=== PATIENT | male | born 1940 | race Caucasian/White ===

== ENCOUNTER 2020-07-05 11:34 | Emergency (ER) | payer BC, OTHER ==
--- NOTE | 2020-07-05 11:38 | ERPHSYRPT ---
- History of Present Illness Time Seen by Provider: 07/05/20 11:38 Source: patient Exam Limitations: no limitations Physician History: This is an 80-year-old white male who receives his primary medical care in the [facility] system. Patient has had a cough for 3 weeks. Patient has chronic recurrent bronchitis. He has recently been treated with a Z-Aly. He no longer has any antibiotics and he is not on any steroids at this time. Patient quit smoking cigarettes several years ago. He denies fever. He denies myalgias and arthralgias. He has no chest pain. He has no abdominal pain. He said no nausea vomiting or diarrhea. He has had no hemoptysis. He has seen a pul sample box maker out of [facility] in [place]. He wanted to be sure that he did or did not have a pneumonia. Timing/Duration: week(s) (3) Cough Quality/Degree: mild, dry cough Possible Cause: no prior episodes Modifying Factors: Improves With: coughing Associated Symptoms: cough, No fever, No muscle aches, No shortness of breath, No sore throat Allergies/Adverse Reactions: No Known Drug Allergies Allergy (Unverified 07/05/20 11:41) Travel Risk - International Travel Have you traveled outside of the country in past 3 weeks: No - Coronavirus Screening Are you exhibiting any of the following symptoms?: No Close contact with a COVID-19 positive Pt in past 14-21 Days: No - Review of Systems Constitutional: No Symptoms Eyes: No Symptoms Ears, Nose, & Throat: No Symptoms Respiratory: Cough, No Dyspnea Cardiac: No Symptoms Abdominal/Gastrointestinal: No Symptoms Genitourinary Symptoms: No Symptoms Musculoskeletal: No Symptoms Skin: No Symptoms Neurological: No Symptoms Psychological: No Symptoms Endocrine: No Symptoms Hematologic/Lymphatic: No Symptoms Immunological/Allergic: No Symptoms All Other Systems: Reviewed and Negative - Past Medical History Pertinent Past Medical History: Yes Respiratory History: Bronchitis - Past Surgical History Past Surgical History: Yes - Nursing Vital Signs Nursing Vital Signs: Initial Vital Signs Temperature 98.7 F 07/05/20 11:41 Pulse Rate 90 07/05/20 11:41 Respiratory Rate 18 07/05/20 11:41 Blood Pressure 135/86 07/05/20 11:41 O2 Sat by Pulse Oximetry 96 07/05/20 11:41 Pain Scale Pain Intensity 0 - Physical Exam General Appearance: no apparent distress, alert, anxiety Eye Exam: PERRL/EOMI, eyes nml inspection Ears, Nose, Throat Exam: normal ENT inspection, moist mucous membranes Neck Exam: normal inspection, non-tender, supple, full range of motion Respiratory Exam: normal breath sounds, lungs clear, airway intact, No chest tenderness, No respiratory distress Cardiovascular Exam: regular rate/rhythm, normal heart sounds, normal peripheral pulses Gastrointestinal/Abdomen Exam: soft, normal bowel sounds, No tenderness Rectal Exam: not done Back Exam: normal inspection, normal range of motion, No CVA tenderness, No vertebral tenderness Extremity Exam: normal inspection, normal range of motion, pelvis stable Neurologic Exam: alert, oriented x 3, cooperative, route sales specialist II-XII nml as tested, normal mood/affect, nml cerebellar function, nml station & gait, sensation nml Skin Exam: normal color, warm, dry Lymphatic Exam: No adenopathy SpO2 Interpretation: normal O2 Delivery: Room Air - Course Nursing assessment & vital signs reviewed: Yes Ordered Tests: Active Orders 24 hr Category Date Time Status CHEST 2 VIEWS (PA AND LAT) Stat Exams 07/05/20 11:47 Completed - Progress Progress: re-examined, unchanged Air Movement: good Progress Note: 07/05/20 12:11 Chest x-ray shows no acute cardiopulmonary process. Blood Culture(s) Obtained: No Antibiotics given: No Counseled pt/family regarding: drug and/or alcohol abuse, diagnosis, need for follow-up - Departure Departure Disposition: Home Clinical Impression: Chronic bronchitis Condition: Stable Critical Care Time: No Additional Instructions: Drink plenty of fluids. Take your medication as prescribed. Call your appliance repairer today to make arrangements for follow-up appointment. Return to the emergency department if symptoms worsen. Use your inhalers and nebulizers as discussed/prescribed Prescriptions: Cefdinir 300 mg PO BID 7 Days #14 capsule Prednisone 10 mg [Deltasone 10 mg] 10 mg PO TID #12 tablet
--- NOTE | 2020-07-05 12:06 | XRAY ---
Indication: Cough 3 weeks. Comparison: None PA/lateral chest hyperinflated with small left costophrenic angle effusion/atelectasis. Remaining heart and right lung unremarkable. Bony thorax intact with mild levoscoliosis.
[2020-07-05] MEDS ORDERED: solu-MEDROL 125 MG IM ONE (12:19)
[2020-07-05] MEDS ORDERED: Rocephin 1000 MG INJ IM ONE (12:19)
[2020-07-05] MEDS ORDERED: Rocephin 1000 MG INJ ONE (12:37)
[2020-07-05] MEDS ORDERED: solu-MEDROL 125 MG ONE (12:37)
[2020-07-05] MEDS ORDERED: XYLOCAINE 1% HCL 20 ML MDV ONE (12:37)
[2020-07-05 13:05] VITALS: BP 153/99; PULSE 78; O2SAT 97
== END 2020-07-05 13:09 | disposition home or self-care (01) ==
LOC: ED 11:34
DX: J42 Unspecified chronic bronchitis (principal); R05 Cough
CPT/HCPCS: 71046; 96372; 99284; J0696; J2930

== ENCOUNTER 2021-05-06 22:50 | Emergency (ER) | payer OTHER ==
--- NOTE | 2021-05-06 22:53 | ERPHSYRPT ---
- History of Present Illness Time Seen by Provider: 05/06/21 22:53 Source: patient Exam Limitations: no limitations Physician History: This is an 81-year-old white male [facility] patient who only has a history of recurrent bronchitis and lives alone. He stated that he does not have chest pain. He is not having any abdominal pain. He is not short of breath. However he did fall and "woke up" on the ground and had some skin tears to his left forearm. Patient is here to get a CAT scan of the head and to have his skin tears managed. He does not want any other work-up done. Occurred: just prior to arrival Reason for Fall: unknown Injuries/Pain Location: upper extremity (Skin tears left forearm) Loss of Consciousness: brief (seconds) Severity of Pain-Max: mild Severity of Pain-Current: mild Modifying Factors: Improves With: nothing Associated Symptoms (Fall): extremity injury (Skin tears left forearm) Allergies/Adverse Reactions: No Known Drug Allergies Allergy (Verified 05/06/21 23:09) Hx Influenza Vaccination/Date Given: Yes Hx Pneumococcal Vaccination/Date Given: No Travel Risk - International Travel Have you traveled outside of the country in past 3 weeks: No - Coronavirus Screening Are you exhibiting any of the following symptoms?: No Close contact with a COVID-19 positive Pt in past 14-21 Days: No - Review of Systems Constitutional: No Symptoms Eyes: No Symptoms Ears, Nose, & Throat: No Symptoms Respiratory: No Symptoms Cardiac: No Symptoms Abdominal/Gastrointestinal: No Symptoms Genitourinary Symptoms: No Symptoms Musculoskeletal: No Symptoms Skin: Other Psychological: No Symptoms Endocrine: No Symptoms Hematologic/Lymphatic: No Symptoms Immunological/Allergic: No Symptoms All Other Systems: Reviewed and Negative - Past Medical History Pertinent Past Medical History: Yes Neurological History: No Pertinent History ENT History: No Pertinent History Cardiac History: No Pertinent History Respiratory History: Bronchitis Endocrine Medical History: No Pertinent History Musculoskeletal History: No Pertinent History GI Medical History: No Pertinent History History: No Pertinent History Psycho-Social History: Depression Male Reproductive Disorders: No Pertinent History - Past Surgical History Past Surgical History: Yes Neuro Surgical History: No Pertinent History Cardiac: No Pertinent History Respiratory: No Pertinent History Gastrointestinal: No Pertinent History Genitourinary: No Pertinent History Musculoskeletal: No Pertinent History Male Surgical History: No Pertinent History - Social History Smoking Status: Never smoker Exposure to second hand smoke: No Drug Use: none Patient Lives Alone: Yes - Nursing Vital Signs Nursing Vital Signs: Initial Vital Signs Temperature 98.2 F 05/06/21 23:09 Pulse Rate 69 05/06/21 23:09 Respiratory Rate 18 05/06/21 23:09 Blood Pressure 153/83 05/06/21 23:09 O2 Sat by Pulse Oximetry 100 05/06/21 23:09 Pain Scale Pain Intensity 5 - [place] Coma Score Best Eye Response ([place]): (4) open spontaneously Best Verbal Response ([place]): (5) oriented Best Motor Response ([place]): (6) obeys commands [place] Total: 15 - Physical Exam General Appearance: no apparent distress, alert, thin Head Injury: no evidence of injury Eye Exam: PERRL/EOMI, eyes nml inspection ENT Exam: airway nml, nml ext.inspection, No evidence of ENT injury Neck Exam: supple, trachea midline, full range of motion, normal alignment, normal inspection Respiratory/Chest Exam: normal breath sounds, No chest tenderness, No respiratory distress, No crepitus Cardiovascular Exam: normal heart sounds, regular rate/rhythm, murmur Gastrointestinal Exam: soft, normal bowel sounds, No tenderness Rectal Exam: not done Back Exam: normal inspection, normal range of motion, No CVA tenderness, No vertebral tenderness Extremity Exam: normal range of motion, capillary refill <3 sec, pelvis stable, other (Skin tears left forearm) Neurologic Exam: alert, oriented x 3, cooperative, director sanitation bureau II-XII nml as tested, normal mood/affect, nml cerebellar function, nml station & gait, sensation nml Skin Exam: other (Multiple skin tears left forearm. No evidence of infection.) SpO2 Interpretation: normal - Course Nursing assessment & vital signs reviewed: Yes - Progress Progress: improved Progress Note: 05/06/21 23:59 Patient has opted to leave AGAINST MEDICAL ADVICE. He was made aware of the risks of leaving including possible intracranial hemorrhage or fracture. He also could have a fracture of the left forearm. Patient understands the benefit of staying and completing the work-up. He has opted to leave AMA. He is to sign the AMA form. Counseled pt/family regarding: diagnosis, need for follow-up, rad results - Departure Departure Disposition: AMA Clinical Impression: Fall with injury, Head injury, Skin tear of left upper extremity Condition: Stable Critical Care Time: No Referrals: HOSPITAL,'S [Primary Care Provider] - Follow up/PCP as directed Additional Instructions: Keep the skin tear sites dry for 24 hours. After 24 hours may wash the sites each day with soap and water. Leave the Steri-Strips in place until they fall off.
== END 2021-05-06 23:55 | disposition left against medical advice (07) ==
LOC: ED 22:50
DX: S51.812A Laceration without foreign body of left forearm, initial encounter (principal); S06.9X1A Unspecified intracranial injury with loss of consciousness of 30 minutes or less, initial encounter; W19.XXXA Unspecified fall, initial encounter
CPT/HCPCS: 73090; 99283

== ENCOUNTER 2021-10-24 11:41 | Emergency (ER) | payer BC, OTHER ==
[2021-10-24] MEDS ORDERED: Sodium Chloride 0.9% 1000 ML 1,000 ML IV STA (11:54)
--- NOTE | 2021-10-24 11:54 | ERPHSYRPT ---
- History of Present Illness Time Seen by Provider: 10/24/21 11:54 Source: patient, EMS Exam Limitations: no limitations Physician History: This is an 81-year-old white male [facility] patient who was brought into the emergency department via EMS because of a witnessed syncopal episode at a local car lot. Patient was in the car a lot and was noticed to be wobbling and then he passed out but was caught by a staff member. Patient does not recall the events. He does recall being nauseated at some point. He was also very pale and diaphoretic when EMS arrived. An intravenous line was placed by EMS and intravenous fluids were started. By the time the patient arrived emergency department, he states he was feeling better. He denies chest pain. He denies shortness of breath. He does not have any pain complaints. I have seen this patient in the past and he has had falls and syncopal episodes in the past. His blood sugar was normal per EMS. Witnessed: bystander Prior Episodes: single episode today Timing/Duration: today Precipitating Factors: unknown Context: standing Loss of Consciousness: brief (seconds) Charcter of event(s): felt faint, almost passed out Allergies/Adverse Reactions: No Known Drug Allergies Allergy (Verified 10/24/21 11:44) Hx Tetanus, Diphtheria Vaccination/Date Given: No Hx Influenza Vaccination/Date Given: Yes Hx Pneumococcal Vaccination/Date Given: No Travel Risk - International Travel Have you traveled outside of the country in past 3 weeks: No - Coronavirus Screening Are you exhibiting any of the following symptoms?: No Close contact with a COVID-19 positive Pt in past 14-21 Days: No - Vaccine Status Have you recieved a Covid-19 vaccination: Yes 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: [employer] - Vaccination Dates Date of 2cond Vaccination (if applicable): 08/11 Comment: and received booster - Past Medical History Pertinent Past Medical History: Yes Neurological History: No Pertinent History ENT History: No Pertinent History Cardiac History: No Pertinent History Respiratory History: Bronchitis Endocrine Medical History: No Pertinent History Musculoskeletal History: No Pertinent History GI Medical History: No Pertinent History History: No Pertinent History Psycho-Social History: Depression Male Reproductive Disorders: No Pertinent History - Past Surgical History Past Surgical History: Yes Neuro Surgical History: No Pertinent History Cardiac: No Pertinent History Respiratory: No Pertinent History Gastrointestinal: No Pertinent History Genitourinary: No Pertinent History Musculoskeletal: No Pertinent History Male Surgical History: No Pertinent History - Social History Smoking Status: Never smoker Exposure to second hand smoke: No Drug Use: none Patient Lives Alone: Yes - Review of Systems Constitutional: Weakness Eyes: No Symptoms Ears, Nose, & Throat: No Symptoms Respiratory: No Symptoms Cardiac: Syncope, No Chest Pain Abdominal/Gastrointestinal: Nausea Genitourinary Symptoms: No Symptoms Musculoskeletal: No Symptoms Skin: No Symptoms Neurological: No Symptoms Psychological: No Symptoms Endocrine: No Symptoms Hematologic/Lymphatic: No Symptoms Immunological/Allergic: No Symptoms All Other Systems: Reviewed and Negative Physical Exam - Nursing Vital Signs Nursing Vital Signs: Initial Vital Signs Temperature 97.1 F 10/24/21 11:45 Pulse Rate 71 10/24/21 11:45 Respiratory Rate 21 10/24/21 11:45 Blood Pressure 139/85 10/24/21 11:45 O2 Sat by Pulse Oximetry 100 10/24/21 11:45 Pain Scale Pain Intensity 0 - [place] Coma Scale Best Eye Response ([place]): (4) open spontaneously Best Verbal Response ([place]): (5) oriented Best Motor Response ([place]): (6) obeys commands [place] Total: 15 - Physical Exam General Appearance: mild distress, alert, anxiety Eye Exam: bilateral eye: normal inspection, PERRL, EOMI Ears, Nose, Throat Exam: normal ENT inspection, moist mucous membranes Neck Exam: normal inspection, non-tender, supple, full range of motion Respiratory: normal breath sounds, lungs clear, airway intact, No chest tenderness, No respiratory distress Cardiovascular: regular rate/rhythm, normal heart sounds, normal peripheral pulses Gastrointestinal: soft, normal bowel sounds, No tenderness Rectal Exam: not done Back Exam: normal inspection, normal range of motion, No CVA tenderness Extremity Exam: normal inspection, normal range of motion, pelvis stable Mental Status: alert, oriented x 3, cooperative staff nurse Exam: normal hearing, normal speech, PERRL, tongue midline Coordination/Gait: normal finger to nose Skin Exam: diaphoresis, other SpO2 Interpretation: normal O2 Delivery: Room Air (We will) - Course Nursing assessment & vital signs reviewed: Yes EKG Interpreted by Me: RATE (73), A-fib, Other (No acute ischemic changes on today's EKG. no comparison EKG available.) Ordered Tests: Active Orders 24 hr Category Date Time Status Program Review Director STAT Care 10/24/21 11:55 Active EKG-ER Only STAT Care 10/24/21 11:54 Active IV Insertion STAT Care 10/24/21 11:54 Active HEAD WITHOUT CONTRAST [CT] Stat Exams 10/24/21 11:55 Completed CBC W DIFF Stat Lab 10/24/21 12:00 Completed CMP Stat Lab 10/24/21 12:00 Completed TROPONIN Q3H Lab 10/24/21 12:00 Completed TROPONIN Q3H Lab 10/24/21 15:00 Ordered TROPONIN Q3H Lab 10/24/21 18:00 Ordered TROPONIN Q3H Lab 10/24/21 21:00 Ordered TROPONIN Q3H Lab 10/25/21 00:00 Ordered UA W/RFX CULTURE Stat Lab 10/24/21 13:53 Completed Medication Summary Discontinued Medications Generic Name Dose Route Start Last Admin Trade Name Freq PRN Reason Stop Dose Admin Sodium Chloride 1,000 mls @ 999 mls/hr 10/24/21 11:54 10/24/21 13:55 Sodium Chloride 0.9% 1000 Ml IV 10/24/21 12:54 Infused .Q1H1M STA Infusion Sodium Chloride Confirm 10/24/21 12:38 Sodium Chloride 0.9% 1000 Ml Administered 10/24/21 12:39 Dose 1,000 mls @ ud .ROUTE .STK-MED ONE Lab/Rad Data: Laboratory Result Diagrams 10/24/21 12:00 10/24/21 12:00 Laboratory Results 10/24/21 10/24/21 10/24/21 Range/Units 13:53 12:00 12:00 WBC (4.0-10.5) K/mm3 RBC (4.1-5.6) M/mm3 Hgb (12.5-18.0) gm/dl Hct (42-50) % MCV (78-100) fl MCH (26-32) pg MCHC (32-36) g/dl RDW (11.5-14.0) % Plt Count (150-450) K/mm3 MPV (7.5-11.0) fl Gran % (36.0-66.0) % Eos # (Auto) (0-0.5) Absolute Lymphs (auto) (1.0-4.6) Absolute Monos (auto) (0.0-1.3) Lymphocytes % (24.0-44.0) % Monocytes % (0.0-12.0) % Eosinophils % (0.00-5.0) % Basophils % (0.0-0.4) % Absolute Granulocytes (1.4-6.9) Basophils # (0-0.4) Sodium 137 (137-145) mmol/L Potassium 4.2 (3.5-5.1) mmol/L Chloride 105 (98-107) mmol/L Carbon Dioxide 21 L (22-30) mmol/L Anion Gap 15.8 H (5-15) MEQ/L BUN 10 (9-20) mg/dL Creatinine 0.69 (0.66-1.25) mg/dL Estimated GFR > 60.0 ML/MIN Glucose 104 (74-106) mg/dL Calcium 8.5 (8.4-10.2) mg/dL Total Bilirubin 0.50 (0.2-1.3) mg/dL AST 21 (17-59) U/L ALT 15 (0-50) U/L Alkaline Phosphatase 47 (38-126) U/L Troponin I < 0.012 (0.000-0.034) ng/mL Serum Total Protein 6.1 L (6.3-8.2) g/dL Albumin 3.6 (3.5-5.0) g/dL Urinalys Dipstick Clnc MAIN LAB Urine Color YELLOW (YELLOW) Urine Appearance CLEAR (CLEAR) Urine pH 7.0 (5-6) Ur Specific Dunbar 1.025 (1.005-1.025) POC Urine Protein Conf TRACE (Negative) Urine Ketones SMALL-15 (NEGATIVE) Urine Nitrite NEGATIVE (NEGATIVE) Urine Bilirubin NEGATIVE (NEGATIVE) Urine Urobilinogen 1 (0-1) mg/dL Urine Leukocytes NEGATIVE (NEGATIVE) Urine WBC (Auto) NONE (0-5) /HPF Urine RBC (Auto) 0-2 (0-2) /HPF U Hyaline Cast (Auto) 6-10 (0-2) /LPF U Epithel Cells (Auto) NONE (FEW) /HPF Urine Bacteria (Auto) Not Reportable Urine RBC NEGATIVE (0-5) Bandar/ul Urine Mucus (Auto) SLIGHT (NEGATIVE) /HPF Ur Culture Indicated? NO Urine Glucose NEGATIVE (NEGATIVE) mg/dL 10/24/21 Range/Units 12:00 WBC 7.6 (4.0-10.5) K/mm3 RBC 3.98 L (4.1-5.6) M/mm3 Hgb 11.8 L (12.5-18.0) gm/dl Hct 36.5 L (42-50) % MCV 91.7 (78-100) fl MCH 29.6 (26-32) pg MCHC 32.3 (32-36) g/dl RDW 12.2 (11.5-14.0) % Plt Count 323 (150-450) K/mm3 MPV 8.4 (7.5-11.0) fl Gran % 49.9 (36.0-66.0) % Eos # (Auto) 0.23 (0-0.5) Absolute Lymphs (auto) 2.75 (1.0-4.6) Absolute Monos (auto) 0.79 (0.0-1.3) Lymphocytes % 36.3 (24.0-44.0) % Monocytes % 10.4 (0.0-12.0) % Eosinophils % 3.0 (0.00-5.0) % Basophils % 0.4 (0.0-0.4) % Absolute Granulocytes 3.78 (1.4-6.9) Basophils # 0.03 (0-0.4) Sodium (137-145) mmol/L Potassium (3.5-5.1) mmol/L Chloride (98-107) mmol/L Carbon Dioxide (22-30) mmol/L Anion Gap (5-15) MEQ/L BUN (9-20) mg/dL Creatinine (0.66-1.25) mg/dL Estimated GFR ML/MIN Glucose (74-106) mg/dL Calcium (8.4-10.2) mg/dL Total Bilirubin (0.2-1.3) mg/dL AST (17-59) U/L ALT (0-50) U/L Alkaline Phosphatase (38-126) U/L Troponin I (0.000-0.034) ng/mL Serum Total Protein (6.3-8.2) g/dL Albumin (3.5-5.0) g/dL Urinalys Dipstick Clnc Urine Color (YELLOW) Urine Appearance (CLEAR) Urine pH (5-6) Ur Specific Dunbar (1.005-1.025) POC Urine Protein Conf (Negative) Urine Ketones (NEGATIVE) Urine Nitrite (NEGATIVE) Urine Bilirubin (NEGATIVE) Urine Urobilinogen (0-1) mg/dL Urine Leukocytes (NEGATIVE) Urine WBC (Auto) (0-5) /HPF Urine RBC (Auto) (0-2) /HPF U Hyaline Cast (Auto) (0-2) /LPF U Epithel Cells (Auto) (FEW) /HPF Urine Bacteria (Auto) Urine RBC (0-5) Bandar/ul Urine Mucus (Auto) (NEGATIVE) /HPF Ur Culture Indicated? Urine Glucose (NEGATIVE) mg/dL - Progress Progress: improved, re-examined Progress Note: 10/24/21 15:15 CAT scan of the head shows a nonacute senile brain. Counseled pt/family regarding: lab results, diagnosis, need for follow-up, rad results - Departure Departure Disposition: Home Clinical Impression: Syncope, Dehydration Condition: Stable Critical Care Time: No Referrals: HOSPITAL,'S [Primary Care Provider] - Follow up/PCP as directed Additional Instructions: Drink plenty of fluids and advance your diet. Eat several small meals a day. Keep your appointment at the [facility] next 10/29/2021. Wear the Holter monitor and follow the directions.
[2021-10-24 12:13] LABS: Absolute Neutrophil Ct (ANC) 3.78 (1.4-6.9); Basophil (Absolute #) 0.03 (0-0.4); Eosinophil (Absolute #) 0.23 (0-0.5); Hematocrit 36.5 % (42-50); Hemoglobin 11.8 gm/dl (12.5-18.0); Lymphocyte (Absolute #) 2.75 (1.0-4.6); Lymphocytes % 36.3 % (24.0-44.0); Mean Cell Volume 91.7 fl (78-100); Mean Corpuscular Hemoglobin 29.6 pg (26-32); Mean Corpuscular Hgb Concent. 32.3 g/dl (32-36); Mean Platelet Volume 8.4 fl (7.5-11.0); Monocyte (Absolute #) 0.79 (0.0-1.3); Monocytes % 10.4 % (0.0-12.0); Neutrophil % 49.9 % (36.0-66.0); Platelet Count 323 K/mm3 (150-450); Red Blood Count 3.98 M/mm3 (4.1-5.6); Red Cell Distribution Width 12.2 % (11.5-14.0); White Blood Count 7.6 K/mm3 (4.0-10.5)
--- NOTE | 2021-10-24 12:24 | XRAY ---
Indication: Syncope. History of brain aneurysm. Multiple contiguous axial images obtained through the head without contrast. Comparison: None Age-appropriate global atrophy and moderate periventricular degenerative micro-ischemia bilaterally. No acute intracranial hemorrhage, abnormal extra-axial fluid collection, or mass effect. Fourth ventricle is midline without hydrocephalus. Bony calvarium intact. Visualized paranasal sinuses and mastoid air cells are clear. Impression: Nonacute senile brain.
[2021-10-24 12:33] LABS: ALBUMIN 3.6 g/dL (3.5-5.0); ALKALINE PHOSPHATASE 47 U/L (38-126); ANION GAP 15.8 MEQ/L (5-15); BLOOD UREA NITROGEN 10 mg/dL (9-20); CHLORIDE 105 mmol/L (98-107); Calcium 8.5 mg/dL (8.4-10.2); Carbon Dioxide 21 mmol/L (22-30); Creatinine 1 0.69 mg/dL (0.66-1.25); EST GLOMERULAR FILTRATION RATE > 60.0 ML/MIN; Glucose 104 mg/dL (74-106); Potassium 4.2 mmol/L (3.5-5.1); SGOT/AST 21 U/L (17-59); SGPT/ALT 15 U/L (0-50); SODIUM 137 mmol/L (137-145); Total Protein 6.1 g/dL (6.3-8.2)
[2021-10-24] MEDS ORDERED: Sodium Chloride 0.9% 1000 ML 1,000 ML ONE (12:38)
[2021-10-24 14:21] LABS: Appearance CLEAR (CLEAR); Bilirubin NEGATIVE (NEGATIVE); Glucose NEGATIVE (NEGATIVE); Ketones SMALL-15 (NEGATIVE); RBC NEGATIVE Ery/ul (0-5); Specific Gravity 1.025 (1.005-1.025)
[2021-10-24 14:22] LABS: Dipstick done @ ? MAIN LAB; Nitrite NEGATIVE (NEGATIVE); Protein,Urine Dip TRACE (Negative); Urobilinogen 1 mg/dL (0-1)
[2021-10-24 14:30] LABS: Mucus SLIGHT /HPF (NEGATIVE); RBC 0-2 /HPF (0-2)
[2021-10-24 14:31] LABS: Urine Cultured Indicated? NO
[2021-10-24 15:43] VITALS: BP 152/82; PULSE 95; O2SAT 100
== END 2021-10-24 16:08 | disposition home or self-care (01) ==
LOC: ED 11:41
DX: R55 Syncope and collapse (principal); E86.0 Dehydration; Z91.81 History of falling
CPT/HCPCS: 36415; 70450; 80053; 81015; 84484; 85025; 93005; 93041; 96360; 99284

== ENCOUNTER 2021-11-23 08:43 | Emergency (ER) | payer OTHER ==
--- NOTE | 2021-11-23 09:25 | ERPHSYRPT ---
- History of Present Illness Source: patient Exam Limitations: no limitations Patient Subjective Stated Complaint: Pt states "I was peeing every 20 minutes [facility] and I have taken 2 of them and now I cannot pee at all and I hurt." Triage Nursing Assessment: pt presented alert and oriented X 3, skin pwd. Pt ambulates with an upright steady gait, able to speak in clear full sentences pt in no apparent respiratory distress. Pt stated his last urination was at 0300 Physician History: 81 yo wm w urinary retention since 3:00AM. Pt has urinary incontinence and was started on a new med, Trospium CL, yesterday [facility]. Lock,#14, placed per nursing w 300ml drainage immediately. Timing/Duration: other (3:00AM) Activites at Onset: rest Quality: dullness Onset Location: other (Supra-pubic) Pain Radiation: none Severity of Pain-Max: moderate Severity of Pain-Current: moderate Modifying Factors: Improves With: nothing, urinating Associated Symptoms: abdominal pain Prior abdominal problems: none Sexual intercourse history: non-contributory Allergies/Adverse Reactions: No Known Drug Allergies Allergy (Verified 10/24/21 11:44) Home Medications: Levothyroxine Sodium 100 Mcg [Synthroid 100 Mcg] 100 mcg PO DAILY 11/23/21 [History] Trospium Chloride 20 mg PO BID 11/23/21 [History] Hx Tetanus, Diphtheria Vaccination/Date Given: No Hx Influenza Vaccination/Date Given: Yes Hx Pneumococcal Vaccination/Date Given: No Immunizations Up to Date: Yes Travel Risk - International Travel Have you traveled outside of the country in past 3 weeks: No - Coronavirus Screening Are you exhibiting any of the following symptoms?: No Close contact with a COVID-19 positive Pt in past 14-21 Days: No - Vaccine Status Have you recieved a Covid-19 vaccination: Yes 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: [employer] - Vaccination Dates Date of 2cond Vaccination (if applicable): 08/11 Comment: and received booster - Past Medical History Pertinent Past Medical History: Yes Neurological History: No Pertinent History ENT History: No Pertinent History Cardiac History: No Pertinent History Respiratory History: Bronchitis Endocrine Medical History: No Pertinent History Musculoskeletal History: No Pertinent History GI Medical History: No Pertinent History History: No Pertinent History Psycho-Social History: Depression Male Reproductive Disorders: No Pertinent History - Past Surgical History Past Surgical History: Yes Neuro Surgical History: No Pertinent History Cardiac: No Pertinent History Respiratory: No Pertinent History Gastrointestinal: No Pertinent History Genitourinary: No Pertinent History Musculoskeletal: No Pertinent History Male Surgical History: No Pertinent History - Social History Smoking Status: Never smoker Exposure to second hand smoke: No Drug Use: none Patient Lives Alone: Yes Significant Family History: no pertinent family hx - Review of Systems Constitutional: No Symptoms Eyes: No Symptoms Ears, Nose, & Throat: No Symptoms Respiratory: No Symptoms Cardiac: No Symptoms Abdominal/Gastrointestinal: No Symptoms, Abdominal Pain (Supra-pubic) Genitourinary Symptoms: No Symptoms, Urinary Retention Musculoskeletal: No Symptoms Skin: No Symptoms Neurological: No Symptoms Psychological: No Symptoms Endocrine: No Symptoms Hematologic/Lymphatic: No Symptoms Immunological/Allergic: Pollen Allergy - Nursing Vital Signs Nursing Vital Signs: Initial Vital Signs Temperature 98.0 F 11/23/21 08:44 Pulse Rate 109 H 11/23/21 08:44 Respiratory Rate 20 11/23/21 08:44 Blood Pressure 164/100 11/23/21 08:44 O2 Sat by Pulse Oximetry 98 11/23/21 08:44 Pain Scale Pain Intensity 0 Hypertensive/Tachycardic - Physical Exam General Appearance: no apparent distress Eye Exam: PERRL/EOMI, eyes nml inspection Ears, Nose, Throat Exam: normal ENT inspection, TMs normal, pharynx normal, moist mucous membranes Neck Exam: normal inspection, non-tender, supple, full range of motion, No meningismus, No mass, No Brudzinski, No Kernig's Respiratory Exam: normal breath sounds, lungs clear, airway intact Cardiovascular Exam: regular rate/rhythm, normal heart sounds, normal peripheral pulses, capillary refill <2 sec, No murmur Gastrointestinal/Abdomen Exam: soft, normal bowel sounds, tenderness (Mild supra-pubic after catheter placement) Back Exam: normal inspection, normal range of motion, No CVA tenderness, No vertebral tenderness Extremity Exam: normal inspection, normal range of motion Neurologic Exam: alert, oriented x 3, cooperative, drug inspector II-XII nml as tested, normal mood/affect, nml cerebellar function, nml station & gait, sensation nml, No motor deficits, No sensory deficit Skin Exam: normal color, warm, dry Lymphatic Exam: No adenopathy SpO2 Interpretation: normal SpO2: 98 O2 Delivery: Room Air - Course Nursing assessment & vital signs reviewed: Yes Ordered Tests: Active Orders 24 hr Category Date Time Status Lock [Catheter-[place] Lock] STAT Care 11/23/21 09:06 Active UA W/RFX CULTURE Stat Lab 11/23/21 09:31 Completed Lab/Rad Data: Laboratory Results 11/23/21 Range/Units 09:31 Urinalys Dipstick Clnc MAIN LAB Urine Color YELLOW (YELLOW) Urine Appearance CLEAR (CLEAR) Urine pH 6.0 (5-6) Ur Specific [place] 1.015 (1.005-1.025) POC Urine Protein Conf NEGATIVE (Negative) Urine Ketones NEGATIVE (NEGATIVE) Urine Nitrite NEGATIVE (NEGATIVE) Urine Bilirubin NEGATIVE (NEGATIVE) Urine Urobilinogen 0.2 (0-1) mg/dL Urine Leukocytes NEGATIVE (NEGATIVE) Urine WBC (Auto) NONE (0-5) /HPF Urine RBC (Auto) 0-2 (0-2) /HPF U Epithel Cells (Auto) NONE (FEW) /HPF Urine Bacteria (Auto) NONE SEEN (NEGATIVE) /HPF Urine RBC TRACE-LYSED (0-5) Bandar/ul Urine Mucus (Auto) SLIGHT (NEGATIVE) /HPF Ur Culture Indicated? NO Urine Glucose NEGATIVE (NEGATIVE) mg/dL - Progress Progress: improved Progress Note: 11/23/21 10:18 Pt greatly improved after Lock placement. BP/HR decreased. [facility] Counseled pt/family regarding: diagnosis, need for follow-up - Departure Departure Disposition: Home Clinical Impression: Urinary retention Condition: Stable Critical Care Time: No Referrals: [facility] [LOCATION] - Follow up/PCP as directed Instructions: Urinary Retention (DC) Additional Instructions: [facility] Stop [facility] until [facility]. Return to ER for Temperature greater than 100.5 or increasing pain.
[2021-11-23 10:24] LABS: Mucus SLIGHT /HPF (NEGATIVE); RBC 0-2 /HPF (0-2)
[2021-11-23 10:26] LABS: Appearance CLEAR (CLEAR); Bilirubin NEGATIVE (NEGATIVE); Glucose NEGATIVE (NEGATIVE); Ketones NEGATIVE (NEGATIVE); Specific Gravity 1.015 (1.005-1.025)
[2021-11-23 10:27] LABS: Bacteria NONE SEEN /HPF (NEGATIVE); Nitrite NEGATIVE (NEGATIVE); Protein,Urine Dip NEGATIVE (Negative); RBC TRACE-LYSED Ery/ul (0-5); Urobilinogen 0.2 mg/dL (0-1)
[2021-11-23 10:28] LABS: Urine Cultured Indicated? NO
[2021-11-23 10:59] VITALS: BP 157/83; PULSE 100
[2021-11-23 12:58] LABS: Dipstick done @ ? MAIN LAB
[2021-11-23 17:15] VITALS: O2SAT 98
== END 2021-11-23 11:19 | disposition home or self-care (01) ==
LOC: ED 08:43
DX: R33.9 Retention of urine, unspecified (principal); R10.2 Pelvic and perineal pain; Z79.899 Other long term (current) drug therapy
CPT/HCPCS: 51702; 81015; 99284

== ENCOUNTER 2022-01-22 18:43 | Inpatient (IN) | payer OTHER ==
[2022-01-22] MEDS ORDERED: Sodium Chloride 0.9% 500 ML 500 ML IV ONE ×4 (19:14→21:54)
[2022-01-22] MEDS ORDERED: Zofran 4 MG/2 ML VIAL IV ONE (19:14)
[2022-01-22] MEDS ORDERED: MORPHINE SULFATE 4 MG INJ IV ONE (19:14)
[2022-01-22] MEDS ORDERED: Zofran 4 MG/2 ML VIAL ONE (19:17)
[2022-01-22] MEDS ORDERED: MORPHINE SULFATE 4 MG INJ ONE (19:17)
--- NOTE | 2022-01-22 19:20 | ERPHSYRPT ---
- History of Present Illness Time Seen by Provider: 01/22/22 19:13 Historian: patient Exam Limitations: no limitations Patient Subjective Stated Complaint: Abdominal pain Triage Nursing Assessment: Patient brought back to ED per w/c and transferred self to bed. Patient A+O X3. Patient's skin pink, warm and dry. Patient complains of abdominal pain that started last night with N/V. Patient states pain is 10/10 around umbilical area. Patient has protrusion noted out of umbilicus. Physician History: 82 years old male presented in the ER with chief complaint of periumbilical area pain and swelling since yesterday with associated multiple episodes of nonprojectile, nonbilious vomiting without hematemesis. Patient reports having periumbilical hernia for a long time and lately noticed increased swelling redness and forearm with worsening pain 10/10 intensity since yesterday with radiating on both flank/lower quadrant area. No fever or chills reported. Timing/Duration: yesterday, constant, gradual onset, worse Activities at Onset: rest Quality: sharpness Abdominal Pain Onset Location: periumbilical Severity of Pain-Max: severe Severity of Pain-Current: severe Modifying Factors: Improves With: nothing Associated Symptoms: nausea, vomiting Previous symptoms: no prior history Allergies/Adverse Reactions: No Known Drug Allergies Allergy (Verified 01/22/22 18:52) Home Medications: Levothyroxine Sodium 100 Mcg [Synthroid 100 Mcg] 100 mcg PO DAILY 11/23/21 [History] Trospium Chloride 20 mg PO BID 11/23/21 [History] Finasteride 5 mg [Proscar 5 MG] 5 mg PO DAILY 01/22/22 [History] Gabapentin 300 mg PO QID 01/22/22 [History] Tamsulosin HCl 0.4 mg [Flomax 0.4 MG] 0.4 mg PO DAILY 01/22/22 [History] Hx Tetanus, Diphtheria Vaccination/Date Given: No Hx Influenza Vaccination/Date Given: Yes Hx Pneumococcal Vaccination/Date Given: No Immunizations Up to Date: Yes Travel Risk - International Travel Have you traveled outside of the country in past 3 weeks: No - Coronavirus Screening Are you exhibiting any of the following symptoms?: No Close contact with a COVID-19 positive Pt in past 14-21 Days: No - Vaccine Status Have you recieved a Covid-19 vaccination: Yes License Inspector: Pfizer - Vaccination Dates Date of 2cond Vaccination (if applicable): 08/11 Comment: and received booster - Review of Systems Constitutional: No Symptoms Eyes: No Symptoms Ears, Nose, & Throat: No Symptoms Respiratory: No Symptoms Cardiac: No Symptoms Abdominal/Gastrointestinal: Abdominal Pain, Nausea, Vomiting Genitourinary Symptoms: No Symptoms Musculoskeletal: No Symptoms Skin: No Symptoms Neurological: No Symptoms Psychological: No Symptoms Endocrine: No Symptoms Hematologic/Lymphatic: No Symptoms Immunological/Allergic: No Symptoms - Past Medical History Pertinent Past Medical History: Yes Neurological History: No Pertinent History ENT History: No Pertinent History Cardiac History: No Pertinent History Respiratory History: Bronchitis Endocrine Medical History: No Pertinent History Musculoskeletal History: No Pertinent History GI Medical History: No Pertinent History History: No Pertinent History Psycho-Social History: Depression Male Reproductive Disorders: No Pertinent History - Past Surgical History Past Surgical History: Yes Neuro Surgical History: No Pertinent History Cardiac: No Pertinent History Respiratory: No Pertinent History Gastrointestinal: No Pertinent History Genitourinary: No Pertinent History Musculoskeletal: No Pertinent History Male Surgical History: No Pertinent History - Social History Smoking Status: Never smoker Exposure to second hand smoke: No Drug Use: none Patient Lives Alone: Yes Significant Family History: no pertinent family hx - Nursing Vital Signs Nursing Vital Signs: Initial Vital Signs Temperature 98.0 F 01/22/22 18:53 Pulse Rate 107 H 01/22/22 18:53 Respiratory Rate 18 01/22/22 18:53 Blood Pressure 155/113 01/22/22 18:53 O2 Sat by Pulse Oximetry 98 01/22/22 18:53 Pain Scale Pain Intensity 3 - Physical Exam General Appearance: no apparent distress, alert Eye Exam: PERRL/EOMI Ears, Nose, Throat Exam: normal ENT inspection, pharynx normal, moist mucous membranes Neck Exam: normal inspection, non-tender, supple, full range of motion Respiratory Exam: normal breath sounds, lungs clear Cardiovascular Exam: regular rate/rhythm, normal heart sounds Gastrointestinal/Abdomen Exam: soft, normal bowel sounds, tenderness (Generalized abdominal tenderness more in the periumbilical area with guarding. 4 x 3 cm swelling with erythema, blanchable in the periumbilical hernia, nonreducible.), guarding Back Exam: normal inspection Extremity Exam: normal inspection, pelvis stable Neurologic Exam: alert, oriented x 3, cooperative Skin Exam: normal color SpO2 Interpretation: normal SpO2: 98 O2 Delivery: Room Air Ordered Tests: Medication Summary Generic Name Dose Route Start Last Admin Trade Name Freq PRN Reason Stop Dose Admin Acetaminophen 650 mg 01/23/22 01:41 Acetaminophen 325 Mg Tablet PO 02/22/22 01:40 Q4H PRN PRN PAIN AND/OR FEVER Acetaminophen 650 mg 01/23/22 07:26 Acetaminophen 650 Mg Supp.Rect RC 02/22/22 07:25 Q4H PRN PRN TEMP >100 Finasteride 5 mg 01/23/22 10:00 01/24/22 08:41 Finasteride 5 Mg Tablet PO 02/22/22 09:59 Not Given DAILY BLANCA Gabapentin 300 mg 01/23/22 10:00 01/24/22 16:35 Gabapentin 300 Mg Capsule PO 02/22/22 09:59 Not Given QID BLANCA Hydralazine HCl 10 mg 01/23/22 19:40 01/23/22 22:10 Hydralazine Hcl 20 Mg/Ml Vial IV 02/22/22 19:39 10 mg Q4H PRN PRN Administration HYPERTENSION Hydromorphone HCl 30 mg 01/24/22 19:00 01/24/22 19:12 Hydromorphone Hcl 30 Mg/30 Ml Ammunition [employer] 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[employer] Handler Vial IV 01/29/22 18:59 30 ml UD PRN Administration PAIN Lactated Ringer's 1,000 mls @ 125 mls/hr 01/23/22 02:00 01/24/22 17:16 Lactated Ringers IV 02/22/22 01:59 125 mls/hr .Q8H BLANCA Administration Ceftriaxone Sodium/Dextrose 1 g in 50 mls @ 100 mls/hr 01/24/22 11:00 01/24/22 11:15 Rocephin 1 Gm-D5w 50 Ml Bag IV 01/27/22 10:59 100 mls/hr Q24H10 BLANCA Administration Diltiazem HCl 100 mls @ 5 mls/hr 01/24/22 13:06 01/24/22 20:37 Cardizem Drip 100 Mg/100 Ml D5w IV 02/23/22 13:05 5 mg/hr .Q20H PRN 5 mls/hr HEART RATE/ A-FIB Titration Protocol 5 MG/HR Heparin Sodium/Dextrose 25,000 units in 250 mls @ 10 mls/hr 01/24/22 13:30 01/24/22 20:00 Heparin 25,000 Units/D5w 250ml Premix IV 02/23/22 13:29 700 units/hr .Q24H BLANCA 7 mls/hr Titration Protocol 1,000 UNITS/HR Levothyroxine Sodium 100 mcg 01/23/22 10:00 01/24/22 08:41 Levothyroxine Sodium 100 Mcg Tablet PO 02/22/22 09:59 Not Given DAILY BLANCA Miscellaneous Information 1 each 01/23/22 09:30 Medication Intervention 1 Each Each 02/22/22 09:29 .RN TO CHECK BLANCA Ondansetron HCl 4 mg 01/23/22 07:15 Ondansetron Hcl 4 Mg/2 Ml Vial IVIM 02/22/22 01:40 Q6H PRN PRN NAUSEA/VOMITING Pantoprazole Sodium 40 mg 01/23/22 10:00 01/24/22 08:45 Pantoprazole 40 Mg Vial IV 02/22/22 09:59 40 mg Q24H10 BLANCA Administration Phenol 5 ml 01/24/22 21:04 Phenol/Sodium Phenolate 180 Ml Bottle PO 02/23/22 21:03 PRN PRN throat pain Tamsulosin HCl 0.4 mg 01/23/22 10:00 01/24/22 08:40 Tamsulosin Hcl 0.4 Mg Cap PO 02/22/22 09:59 Not Given DAILY BLANCA Discontinued Medications Generic Name Dose Route Start Last Admin Trade Name Freq PRN Reason Stop Dose Admin Albuterol/Ipratropium 3 ml 01/23/22 01:30 Ipratropium/Albuterol Sulfate 3 Ml Ampul.Neb IH 02/22/22 01:29 Q4HPRN PRN SHORTNESS OF BREATH/WHEEZING Bupivacaine HCl Confirm 01/22/22 22:31 Bupivacaine Hcl 2.5 Mg/Ml 10 Ml Administered 01/22/22 22:32 Dose 10 ml .ROUTE .STK-MED ONE Bupivacaine HCl/Epinephrine Bitart Confirm 01/23/22 00:14 Bupivacaine Hcl/Epinephrine 10 Ml Vial Administered 01/23/22 00:15 Dose 30 ml .ROUTE .STK-MED ONE Enoxaparin Sodium 40 mg 01/23/22 22:00 01/23/22 22:00 Enoxaparin Sodium 40 Mg/0.4 Ml Syringe SQ 02/22/22 21:59 40 mg QPM BLANCA Administration Fentanyl Citrate Confirm 01/22/22 23:14 Fentanyl Citrate 250 Mcg/5 Ml Ampul Administered 01/22/22 23:15 Dose 250 mcg .ROUTE .STK-MED ONE Fentanyl Citrate Confirm 01/23/22 00:07 Fentanyl Citrate 100 Mcg/2 Ml* Vial Administered 01/23/22 00:08 Dose 100 mcg .ROUTE .STK-MED ONE Heparin Sodium (Beef Lung) 0 unit 01/24/22 13:20 Heparin 5000 Unit/0.5 Ml Syringe IV 02/23/22 13:19 UD PRN Sodium Chloride 500 mls @ 500 mls/hr 01/22/22 19:14 01/22/22 20:27 Sodium Chloride 0.9% 500 Ml IV 01/22/22 20:13 Infused .Q1H ONE Infusion Sodium Chloride Confirm 01/22/22 19:17 Sodium Chloride 0.9% 500 Ml Administered 01/22/22 19:18 Dose 500 mls @ ud IV .STK-MED ONE Sodium Chloride 1,000 mls @ 125 mls/hr 01/22/22 22:00 01/22/22 23:08 Sodium Chloride 0.9% 1000 Ml IV 02/21/22 21:59 125 mls/hr .Q8H BLANCA Administration Piperacillin Sod/Tazobactam 100 mls @ 200 mls/hr 01/22/22 21:48 01/22/22 21:56 Sod 3.375 gm/ Sodium Chloride IV 01/22/22 22:17 200 mls/hr STAT ONE Administration Sodium Chloride 500 mls @ 500 mls/hr 01/22/22 21:48 01/22/22 23:10 Sodium Chloride 0.9% 500 Ml IV 01/22/22 22:47 Infused .Q1H ONE Infusion Sodium Chloride Confirm 01/22/22 21:54 Sodium Chloride 100ml Mini-Bag Plus Administered 01/22/22 21:55 Dose 100 mls @ ud IV .STK-MED ONE Sodium Chloride Confirm 01/22/22 21:54 Sodium Chloride 0.9% 500 Ml Administered 01/22/22 21:55 Dose 500 mls @ ud IV .STK-MED ONE Lactated Ringer's Confirm 01/22/22 22:31 Lactated Ringers Administered 01/22/22 22:32 Dose 1,000 mls @ ud IV .STK-MED ONE Piperacillin Sod/Tazobactam 100 mls @ 200 mls/hr 01/23/22 01:45 01/23/22 03:02 Sod 3.375 gm/ Sodium Chloride IV 01/26/22 01:44 Not Given Q8H BLANCA Piperacillin Sod/Tazobactam 100 mls @ 200 mls/hr 01/23/22 06:00 01/23/22 08:54 Sod 3.375 gm/ Sodium Chloride IV 01/23/22 22:29 200 mls/hr Q8H BLANCA Administration Sodium Chloride Confirm 01/22/22 22:55 Sodium Chloride 0.9% 1000 Ml Administered 01/22/22 22:56 Dose 1,000 mls @ ud .ROUTE .STK-MED ONE Sodium Chloride Confirm 01/22/22 23:51 Sodium Chloride 0.9% 1000 Ml Administered 01/22/22 23:52 Dose 2,000 mls @ ud .ROUTE .STK-MED ONE Piperacillin Sod/Tazobactam 100 mls @ 200 mls/hr 01/23/22 17:00 01/24/22 01:31 Sod 3.375 gm/ Sodium Chloride IV 01/24/22 01:29 200 mls/hr Q8H BLANCA Administration Diltiazem HCl 100 mls @ 5 mls/hr 01/24/22 12:51 Cardizem Drip 100 Mg/100 Ml D5w IV 02/23/22 12:50 .Q20H PRN HEART RATE/ A-FIB Protocol 5 MG/HR Midazolam HCl Confirm 01/22/22 23:14 Midazolam Hcl 2 Mg/2 Ml Vial Administered 01/22/22 23:15 Dose 2 mg .ROUTE .STK-MED ONE Morphine Sulfate 4 mg 01/22/22 19:14 01/22/22 19:19 Morphine Sulfate 4 Mg/Ml Injection IV 01/22/22 19:15 4 mg STAT ONE Administration Morphine Sulfate Confirm 01/22/22 19:17 Morphine Sulfate 4 Mg/Ml Injection Administered 01/22/22 19:18 Dose 4 mg .ROUTE .STK-MED ONE Morphine Sulfate 4 mg 01/23/22 01:58 01/24/22 17:59 Morphine Sulfate 4 Mg/Ml Injection IV 01/28/22 01:57 4 mg Q2H PRN PRN Administration PAIN Non-Formulary Medication 1 each 01/24/22 13:04 01/24/22 13:28 Pharmacy Dosing Request [facility] 01/24/22 13:05 1 each STAT ONE Administration Ondansetron HCl 4 mg 01/22/22 19:14 01/22/22 19:19 Ondansetron Hcl 4 Mg/2 Ml Vial IV 01/22/22 19:15 4 mg STAT ONE Administration Ondansetron HCl Confirm 01/22/22 19:17 Ondansetron Hcl 4 Mg/2 Ml Vial Administered 01/22/22 19:18 Dose 4 mg .ROUTE .STK-MED ONE Ondansetron HCl 4 mg 01/23/22 01:41 01/23/22 04:22 Ondansetron Hcl 4 Mg/2 Ml Vial IV 02/22/22 01:40 4 mg Q6H PRN PRN Administration NAUSEA/VOMITING Pantoprazole Sodium 40 mg 01/22/22 21:47 01/22/22 21:56 Pantoprazole 40 Mg Vial IV 01/22/22 21:48 40 mg STAT ONE Administration Pantoprazole Sodium Confirm 01/22/22 21:53 Pantoprazole 40 Mg Vial Administered 01/22/22 21:54 Dose 40 mg IV .STK-MED ONE Piperacillin Sod/Tazobactam Sod Confirm 01/22/22 21:53 Piperacillin/Tazobactam Sodium 3.375 Gm Vial Administered 01/22/22 21:54 Dose 3.375 gm IV .STK-MED ONE Propofol Confirm 01/22/22 23:14 Propofol 10 Mg/Ml 20ml Vial Administered 01/22/22 23:15 Dose 200 mg IV .STK-MED ONE Rocuronium [place] Confirm 01/22/22 23:14 Rocuronium [place] 100 Mg/10ml Vial Administered 01/22/22 23:15 Dose 50 mg .ROUTE .STK-MED ONE Succinylcholine Chloride Confirm 01/22/22 23:14 Succinylcholine Chloride 200mg/10 Ml Vial Administered 01/22/22 23:15 Dose 200 mg .ROUTE .STK-MED ONE Sugammadex Sodium Confirm 01/23/22 00:20 Sugammadex Sodium 200 Mg/2 Ml Vial Administered 01/23/22 00:21 Dose 200 mg IV .STK-MED ONE Lab/Rad Data: Laboratory Result Diagrams 01/22/22 19:25 01/22/22 19:25 Laboratory Results 01/22/22 01/22/22 01/22/22 Range/Units 21:36 19:30 19:25 WBC (4.0-10.5) x10^3/uL RBC (4.1-5.6) x10^6/uL Hgb (12.5-18.0) g/dL Hct (42-50) % MCV (78-100) fL MCH (26-32) pg MCHC (32-36) g/dL RDW (11.5-14.0) % Plt Count (150-450) x10^3/uL MPV (7.5-11.0) fL Gran % (36.0-66.0) % Immature Gran % (Auto) (0.00-0.4) % Nucleat RBC Rel Count (0.00-0.1) % Eos # (Auto) (0-0.5) x10^3/uL Immature Gran # (Auto) (0.00-0.03) x10^3u/L Absolute Lymphs (auto) (1.0-4.6) x10^3/uL Absolute Monos (auto) (0.0-1.3) x10^3/uL Absolute Nucleated RBC (0.00-0.01) x10^3u/L Lymphocytes % (24.0-44.0) % Monocytes % (0.0-12.0) % Eosinophils % (0.00-5.0) % Basophils % (0.0-0.4) % Absolute Granulocytes (1.4-6.9) x10^3/uL Basophils # (0-0.4) x10^3/uL Sodium (137-145) mmol/L Potassium (3.5-5.1) mmol/L Chloride (98-107) mmol/L Carbon Dioxide (22-30) mmol/L Anion Gap (5-15) MEQ/L BUN (9-20) mg/dL Creatinine (0.66-1.25) mg/dL Estimated GFR ML/MIN Glucose (74-106) mg/dL Lactic Acid 0.8 (0.4-2.0) Calcium (8.4-10.2) mg/dL Total Bilirubin (0.2-1.3) mg/dL AST (17-59) U/L ALT (0-50) U/L Alkaline Phosphatase (38-126) U/L Serum Total Protein (6.3-8.2) g/dL Albumin (3.5-5.0) g/dL Lipase (23-300) U/L Procalcitonin 0.093 H (0.030-0.080) ng/mL Urinalys Dipstick Clnc MAIN LAB Urine Color DARK YELLOW (YELLOW) Urine Appearance SLIGHTLY CLOUDY (CLEAR) Urine pH 6.5 (5-6) Ur Specific [place] >=1.030 (1.005-1.025) POC Urine Protein Conf 100 (Negative) Urine Ketones >=160 (NEGATIVE) Urine Nitrite POSITIVE (NEGATIVE) Urine Bilirubin SMALL (NEGATIVE) Urine Urobilinogen 1 (0-1) mg/dL Urine Leukocytes TRACE (NEGATIVE) Urine WBC (Auto) >100 (0-5) /HPF Urine RBC (Auto) 6-10 (0-2) /HPF U Epithel Cells (Auto) NONE (FEW) /HPF Urine Bacteria (Auto) FEW (NEGATIVE) /HPF Urine RBC MODERATE (0-5) Bandar/ul Urine Mucus (Auto) SLIGHT (NEGATIVE) /HPF Ur Culture Indicated? YES Urine Glucose NEGATIVE (NEGATIVE) mg/dL Influenza Type A Ag (NEGATIVE) Influenza Type B Ag (NEGATIVE) RSV (PCR) (Negative) SARS-CoV-2 (PCR) (NEGATIVE) 01/22/22 01/22/22 01/22/22 Range/Units 19:25 19:25 19:13 WBC 16.2 H (4.0-10.5) x10^3/uL RBC 5.08 (4.1-5.6) x10^6/uL Hgb 15.1 (12.5-18.0) g/dL Hct 44.8 (42-50) % MCV 88.2 (78-100) fL MCH 29.7 (26-32) pg MCHC 33.7 (32-36) g/dL RDW 12.0 (11.5-14.0) % Plt Count 425 (150-450) x10^3/uL MPV 9.2 (7.5-11.0) fL Gran % 85.1 H (36.0-66.0) % Immature Gran % (Auto) 0.5 H (0.00-0.4) % Nucleat RBC Rel Count 0.0 (0.00-0.1) % Eos # (Auto) 0 (0-0.5) x10^3/uL Immature Gran # (Auto) 0.08 H (0.00-0.03) x10^3u/L Absolute Lymphs (auto) 1.14 (1.0-4.6) x10^3/uL Absolute Monos (auto) 1.14 (0.0-1.3) x10^3/uL Absolute Nucleated RBC 0.00 (0.00-0.01) x10^3u/L Lymphocytes % 7.1 L (24.0-44.0) % Monocytes % 7.1 (0.0-12.0) % Eosinophils % 0.0 (0.00-5.0) % Basophils % 0.2 (0.0-0.4) % Absolute Granulocytes 13.77 H (1.4-6.9) x10^3/uL Basophils # 0.03 (0-0.4) x10^3/uL Sodium 131 L (137-145) mmol/L Potassium 4.2 (3.5-5.1) mmol/L Chloride 92 L (98-107) mmol/L Carbon Dioxide 23 (22-30) mmol/L Anion Gap 20.0 H (5-15) MEQ/L BUN 16 (9-20) mg/dL Creatinine 0.89 (0.66-1.25) mg/dL Estimated GFR > 60.0 ML/MIN Glucose 139 H (74-106) mg/dL Lactic Acid 2.9 H (0.4-2.0) Calcium 9.8 (8.4-10.2) mg/dL Total Bilirubin 1.30 (0.2-1.3) mg/dL AST 21 (17-59) U/L ALT 15 (0-50) U/L Alkaline Phosphatase 84 (38-126) U/L Serum Total Protein 8.0 (6.3-8.2) g/dL Albumin 4.8 (3.5-5.0) g/dL Lipase 42 (23-300) U/L Procalcitonin (0.030-0.080) ng/mL Urinalys Dipstick Clnc Urine Color (YELLOW) Urine Appearance (CLEAR) Urine pH (5-6) Ur Specific [place] (1.005-1.025) POC Urine Protein Conf (Negative) Urine Ketones (NEGATIVE) Urine Nitrite (NEGATIVE) Urine Bilirubin (NEGATIVE) Urine Urobilinogen (0-1) mg/dL Urine Leukocytes (NEGATIVE) Urine WBC (Auto) (0-5) /HPF Urine RBC (Auto) (0-2) /HPF U Epithel Cells (Auto) (FEW) /HPF Urine Bacteria (Auto) (NEGATIVE) /HPF Urine RBC (0-5) Bandar/ul Urine Mucus (Auto) (NEGATIVE) /HPF Ur Culture Indicated? Urine Glucose (NEGATIVE) mg/dL Influenza Type A Ag (NEGATIVE) Influenza Type B Ag (NEGATIVE) RSV (PCR) (Negative) SARS-CoV-2 (PCR) (NEGATIVE) 01/22/22 Range/Units 02:00 WBC (4.0-10.5) x10^3/uL RBC (4.1-5.6) x10^6/uL Hgb (12.5-18.0) g/dL Hct (42-50) % MCV (78-100) fL MCH (26-32) pg MCHC (32-36) g/dL RDW (11.5-14.0) % Plt Count (150-450) x10^3/uL MPV (7.5-11.0) fL Gran % (36.0-66.0) % Immature Gran % (Auto) (0.00-0.4) % Nucleat RBC Rel Count (0.00-0.1) % Eos # (Auto) (0-0.5) x10^3/uL Immature Gran # (Auto) (0.00-0.03) x10^3u/L Absolute Lymphs (auto) (1.0-4.6) x10^3/uL Absolute Monos (auto) (0.0-1.3) x10^3/uL Absolute Nucleated RBC (0.00-0.01) x10^3u/L Lymphocytes % (24.0-44.0) % Monocytes % (0.0-12.0) % Eosinophils % (0.00-5.0) % Basophils % (0.0-0.4) % Absolute Granulocytes (1.4-6.9) x10^3/uL Basophils # (0-0.4) x10^3/uL Sodium (137-145) mmol/L Potassium (3.5-5.1) mmol/L Chloride (98-107) mmol/L Carbon Dioxide (22-30) mmol/L Anion Gap (5-15) MEQ/L BUN (9-20) mg/dL Creatinine (0.66-1.25) mg/dL Estimated GFR ML/MIN Glucose (74-106) mg/dL Lactic Acid (0.4-2.0) Calcium (8.4-10.2) mg/dL Total Bilirubin (0.2-1.3) mg/dL AST (17-59) U/L ALT (0-50) U/L Alkaline Phosphatase (38-126) U/L Serum Total Protein (6.3-8.2) g/dL Albumin (3.5-5.0) g/dL Lipase (23-300) U/L Procalcitonin (0.030-0.080) ng/mL Urinalys Dipstick Clnc Urine Color (YELLOW) Urine Appearance (CLEAR) Urine pH (5-6) Ur Specific [place] (1.005-1.025) POC Urine Protein Conf (Negative) Urine Ketones (NEGATIVE) Urine Nitrite (NEGATIVE) Urine Bilirubin (NEGATIVE) Urine Urobilinogen (0-1) mg/dL Urine Leukocytes (NEGATIVE) Urine WBC (Auto) (0-5) /HPF Urine RBC (Auto) (0-2) /HPF U Epithel Cells (Auto) (FEW) /HPF Urine Bacteria (Auto) (NEGATIVE) /HPF Urine RBC (0-5) Bandar/ul Urine Mucus (Auto) (NEGATIVE) /HPF Ur Culture Indicated? Urine Glucose (NEGATIVE) mg/dL Influenza Type A Ag NEGATIVE (NEGATIVE) Influenza Type B Ag NEGATIVE (NEGATIVE) RSV (PCR) NEGATIVE (Negative) SARS-CoV-2 (PCR) NEGATIVE (NEGATIVE) - Progress Progress: pain not gone completely, re-examined Progress Note: 01/22/22 21:49 82 years old is evaluated for abdominal pain with vomiting and nonreducible umbilical hernia. Has a white count of 16, lactate 2.9 with elevated procalcitonin and chemistries consistent with dehydration. Given fluids and analgesic firsts symptomatic relief, on reevaluation feeling better but pain is not completely resolved. CT showed small umbilical hernia with/knuckle of small bowel herniating producing small bowel obstruction. Also has left inguinal hernia without obstruction. Discussed with Dr. Luis Miguel Walter, reviewed history, CT findings, thinks patient needs to go for surgical intervention. Given a dose of antibiotics. Plan discussed with patient and family who understand and agree with it. 01/22/22 22:11 I have discussed with Dr. Vera, reviewed history, work-up and Dr. Walter recommendation and patient is accepted for admission. Discussed with .: Nitza Will see patient in: hospital (observation) Counseled pt/family regarding: lab results, diagnosis, rad results - Departure Departure Disposition: Observation Clinical Impression: Obstructed umbilical hernia, Acute UTI Condition: Stable Critical Care Time: No
[2022-01-22 19:36] LABS: Absolute Neutrophil Ct (ANC) 13.77 x10^3/uL (1.4-6.9); Basophil (Absolute #) 0.03 x10^3/uL (0-0.4); Eosinophil (Absolute #) 0 x10^3/uL (0-0.5); Hematocrit 44.8 % (42-50); Hemoglobin 15.1 g/dL (12.5-18.0); Lymphocyte (Absolute #) 1.14 x10^3/uL (1.0-4.6); Lymphocytes % 7.1 % (24.0-44.0); Mean Cell Volume 88.2 fL (78-100); Mean Corpuscular Hemoglobin 29.7 pg (26-32); Mean Corpuscular Hgb Concent. 33.7 g/dL (32-36); Mean Platelet Volume 9.2 fL (7.5-11.0); Monocyte (Absolute #) 1.14 x10^3/uL (0.0-1.3); Monocytes % 7.1 % (0.0-12.0); Neutrophil % 85.1 % (36.0-66.0); Platelet Count 425 x10^3/uL (150-450); Red Blood Count 5.08 x10^6/uL (4.1-5.6); White Blood Count 16.2 x10^3/uL (4.0-10.5)
[2022-01-22 19:49] LABS: ALBUMIN 4.8 g/dL (3.5-5.0); ALKALINE PHOSPHATASE 84 U/L (38-126); BLOOD UREA NITROGEN 16 mg/dL (9-20); CHLORIDE 92 mmol/L (98-107); Calcium 9.8 mg/dL (8.4-10.2); Carbon Dioxide 23 mmol/L (22-30); Creatinine 1 0.89 mg/dL (0.66-1.25); EST GLOMERULAR FILTRATION RATE > 60.0 ML/MIN; Glucose 139 mg/dL (74-106); LIPASE 42 U/L (23-300); Potassium 4.2 mmol/L (3.5-5.1); SGOT/AST 21 U/L (17-59); SGPT/ALT 15 U/L (0-50); SODIUM 131 mmol/L (137-145)
[2022-01-22 19:50] LABS: Appearance SLIGHTLY CLOUDY (CLEAR)
[2022-01-22 19:51] LABS: Bilirubin SMALL (NEGATIVE); Dipstick done @ ? MAIN LAB; Glucose NEGATIVE (NEGATIVE); Ketones >=160 (NEGATIVE); Nitrite POSITIVE (NEGATIVE); Ph 6.5 (5-6); Protein,Urine Dip 100 (Negative); RBC MODERATE Ery/ul (0-5); Specific Gravity >=1.030 (1.005-1.025); Urobilinogen 1 mg/dL (0-1)
[2022-01-22 19:56] LABS: Bacteria FEW /HPF (NEGATIVE); Mucus SLIGHT /HPF (NEGATIVE); Urine Cultured Indicated? YES; WBC >100 /HPF (0-5)
[2022-01-22] MEDS ORDERED: PROTONIX 40 MG IV IV ONE ×2 (21:47→21:53)
[2022-01-22] MEDS ORDERED: PIPERACILLIN/TAZOBACTAM 3.375 GM in Sodium Chloride 100ML MINI-BAG PLUS 100 ML IV ONE (21:48)
[2022-01-22] MEDS ORDERED: PIPERACILLIN/TAZOBACTAM IV ONE (21:53)
[2022-01-22] MEDS ORDERED: Sodium Chloride 100ML MINI-BAG PLUS 100 ML IV ONE (21:54)
[2022-01-22] MEDS ORDERED: Sodium Chloride 0.9% 1000 ML 1,000 ML IV SCH (22:00)
[2022-01-22] MEDS ORDERED: Sensorcaine 0.25% 10 ML ONE (22:31)
[2022-01-22] MEDS ORDERED: Lactated Ringers 1,000 ML IV ONE (22:31)
[2022-01-22] MEDS ORDERED: Sodium Chloride 0.9% 1000 ML 1,000 ML ONE (22:55)
[2022-01-22] MEDS ORDERED: Zemuron 100 MG/10 ML ONE (23:14)
[2022-01-22] MEDS ORDERED: Versed 2 MG/2 ML Injection ONE (23:14)
[2022-01-22] MEDS ORDERED: DIPRIVAN 200 MG/20 ML IV ONE (23:14)
[2022-01-22] MEDS ORDERED: Quelicin Fliptop 200 MG/10 ML ONE (23:14)
[2022-01-22] MEDS ORDERED: SUBLIMAZE 250 MCG/5 ML ONE (23:14)
[2022-01-22] MEDS ORDERED: Sodium Chloride 0.9% 1000 ML 2,000 ML ONE (23:51)
[2022-01-23] MEDS ORDERED: SUBLIMAZE 100 MCG/2 ML ONE (00:07)
[2022-01-23] MEDS ORDERED: Marcaine 0.5%/Epinephrine 10 ML ONE (00:14)
[2022-01-23] MEDS ORDERED: BRIDION 200MG/2ML IV ONE (00:20)
[2022-01-23] MEDS ORDERED: DUONEB 0.5-3 MG/3 ml Neb IH PRN (01:30)
[2022-01-23] MEDS ORDERED: TYLENOL 325 MG PO PRN (01:41)
[2022-01-23] MEDS ORDERED: Zofran 4 MG/2 ML VIAL IV PRN (01:41)
[2022-01-23] MEDS ORDERED: PIPERACILLIN/TAZOBACTAM 3.375 GM in Sodium Chloride 100ML MINI-BAG PLUS 100 ML IV SCH ×2 (01:45→06:00)
[2022-01-23] MEDS: Lactated Ringers 1,000 ML IV SCH ×3 (02:21→20:33)
[2022-01-23 02:35] LABS: Mucus SLIGHT /HPF (NEGATIVE); RBC 26-50 /HPF (0-2); WBC 26-50 /HPF (0-5)
[2022-01-23 02:46] LABS: Appearance CLEAR (CLEAR); Bilirubin SMALL (NEGATIVE); Glucose NEGATIVE (NEGATIVE); Ketones LARGE-80 (NEGATIVE)
[2022-01-23 02:47] LABS: Dipstick done @ ? MAIN LAB; Nitrite POSITIVE (NEGATIVE); Protein,Urine Dip 100 (Negative); RBC MODERATE Ery/ul (0-5); Specific Gravity 1.025 (1.005-1.025); Urobilinogen 1 mg/dL (0-1)
[2022-01-23 02:58] LABS: INFLUENZA A NEGATIVE (NEGATIVE); INFLUENZA B NEGATIVE (NEGATIVE); RESPIRATORY SYNCTIAL VIRUS NEGATIVE (Negative); SARS-CoV-2 Xpert Express NEGATIVE (NEGATIVE)
[2022-01-23 05:01] LABS: Hemoglobin 12.4 g/dL (12.5-18.0); Mean Cell Volume 89.4 fL (78-100); Mean Corpuscular Hgb Concent. 33.5 g/dL (32-36); Mean Platelet Volume 9.1 fL (7.5-11.0); Platelet Count 355 x10^3/uL (150-450); Red Blood Count 4.14 x10^6/uL (4.1-5.6); Red Cell Distribution Width 12.3 % (11.5-14.0)
[2022-01-23 05:50] LABS: ANION GAP 12.3 MEQ/L (5-15); BLOOD UREA NITROGEN 13 mg/dL (9-20); CHLORIDE 103 mmol/L (98-107); Calcium 8.2 mg/dL (8.4-10.2); Carbon Dioxide 22 mmol/L (22-30); Creatinine 1 0.74 mg/dL (0.66-1.25); EST GLOMERULAR FILTRATION RATE > 60.0 ML/MIN; Glucose 112 mg/dL (74-106); Potassium 3.5 mmol/L (3.5-5.1); SODIUM 133 mmol/L (137-145)
[2022-01-23 05:54] LABS: White Blood Count 25.9 x10^3/uL (4.0-10.5)
[2022-01-23] MEDS ORDERED: Zofran 4 MG/2 ML VIAL IVIM PRN (07:15)
[2022-01-23] MEDS ORDERED: FEVERALL 650 MG RC PRN (07:26)
[2022-01-23] MEDS: MORPHINE SULFATE 4 MG INJ IV PRN ×5 (07:51→22:00)
--- NOTE | 2022-01-23 09:16 | XRAY ---
Exam: CT of the abdomen and pelvis without IV contrast from 01/22/2022. CTDI: 2.71 mGy Comparison: [None.] Indication: 82-year-old male with bilateral lower abdominal pain associated with nausea and vomiting; rule out obstruction. The patient has a history of prior appendectomy. Technique: Non-IV contrast axial images were obtained through the abdomen and pelvis. Reconstructed coronal and sagittal images were created and reviewed. No oral contrast was given. Findings: Mild respiratory motion artifact is seen. There is either some mild subsegmental atelectasis or mild pleural reaction adjacent to the major fissure at the lateral left lung base. Otherwise, the lung bases appear clear. The heart size is normal. The stomach is markedly distended with fluid with an air-fluid level. Also, a prominent fluid-filled distal thoracic esophagus is seen measuring 3.7 cm in diameter. This is consistent with GERD. I also note asymmetric proximal and mid small bowel dilation measuring up to 2.5 cm in diameter with relatively collapsed small bowel loops within the pelvis and right lower quadrant suggesting at least partial small bowel obstruction. Along the right periumbilical region, there is a knuckle of mildly dilated small bowel and herniated intraperitoneal fat which I believe is causing a partial mid small bowel obstruction. There is no free air or free fluid. Both the liver and spleen appear grossly unremarkable. The gallbladder is abnormally distended measuring 5.1 cm in width. However, I see no dense intraluminal gallstones or gallbladder wall thickening. No intrahepatic or extrahepatic biliary duct distention is seen. The pancreas appears unremarkable. The adrenal glands appear within normal limits. The kidneys are unremarkable size and reveal no calculi or hydronephrosis. No ureteral distention or ureterolithiasis is seen. Moderate atherosclerotic vascular calcification is seen within the abdominal aorta and branches of the iliac arteries and common femoral arteries. No abdominal aortic aneurysm is seen. No abnormal retroperitoneal lymphadenopathy is evident. The appendix is not seen within the right lower quadrant consistent with the patient's history of prior appendectomy. A prominent left inguinal hernia is seen containing stool filled sigmoid colon. There also appears to be sigmoid colon diverticulosis without evidence of diverticulitis. There do not appear to be any complications of the large left inguinal hernia. I believe there is also a small right inguinal hernia containing a knuckle of small bowel which is not dilated. See axial image #83 and coronal image #52. The urinary bladder is partially distended and reveals slight urinary bladder wall prominence, perhaps due to some bladder outlet obstruction. The prostate gland is significantly enlarged measuring 6.2 cm in width and 5.2 cm in AP dimension on axial image #79. There is abundant stool within the rectum consistent with rectal impaction. This measures 6.4 cm in width and 5.7 cm in AP dimension on axial image #70. The skeleton reveals no acute fracture or aggressive bone lesion. Advanced multilevel degenerative disc disease is seen at L2-L3, L3-L4, L5-S1, followed by L4-L5 in severity. There is slight posterior subluxation of L2 with respect to L3 and slight anterior subluxation of L4 with respect to L5, likely due to the degenerative disc disease, as well some lower lumbar posterior facet joint arthropathy. In addition, there is severe right hip osteoarthritis and mild left hip osteoarthritis. Impression: 1. There appears to be a mild right periumbilical ventral hernia containing a knuckle of small bowel within its which is causing at least a partial mid small bowel obstruction. No free air or free fluid is seen. 2. Abundant fluid is seen within the stomach lumen, as well as a distended distal thoracic esophagus suggesting GERD. 3. Abnormally distended gallbladder revealing no gallbladder wall thickening or definite calcifications within it. No biliary duct distention is seen. 4. Moderately large left inguinal hernia containing some stool filled sigmoid colon without evidence of obstruction or other complications. I believe there is also a small right inguinal hernia containing a knuckle of small bowel within it. See coronal image #[id number]. Mild sigmoid colon diverticulosis without evidence of diverticulitis is seen. 5. Marked prostatomegaly. 6. Moderate sized rectal fecal impaction. 7. Skeletal findings, as discussed above.
--- NOTE | 2022-01-23 09:26 | XRAY ---
Exam: AP portable chest film from 01/22/2022. Comparison: Two-view chest from 07/05/2020. Indication: NG tube placement. Findings: On the first NG tube placement radiograph, a portion of the NG tube appears coiled within the lower neck region. The distal tip is not seen. This represents unsuccessful placement of the NG tube. The heart size is normal. A calcified, moderately tortuous descending thoracic aorta is seen. The lungs are well expanded. There is a curvilinear interface overlying the peripheral right lung which I believe corresponds to a skin fold rather than pneumothorax. The remainder of the the lung peters are essentially clear except for a minimal linear stranding at the lateral left lung base which may be due to plate atelectasis or scarring. Pulmonary vascularity is normal. No pleural fluid is seen. Mild lower thoracic levoscoliosis is seen. Impression: 1. Unsuccessful placement of NG tube. It would appear the NG tube is coiled within the neck region. 2. No acute cardiopulmonary disease is is seen. See above.
[2022-01-23] MEDS ORDERED: MEDICATION INTERVENTION MC SCH (09:30)
--- NOTE | 2022-01-23 09:36 | XRAY ---
Exam: AP portable chest film from 01/22/2022 (second attempt at NG tube placement). Comparison: AP portable chest film from 01/22/2022 (first attempt at NG tube placement). Indication: NG tube placement. Findings: At the superior margin of the film, there is partial visualization of an apparently coiled NG tube within the neck region. This represents unsuccessful placement of the NG tube. There is a probable skin fold overlying the peripheral right lung field. Minimal linear/curvilinear stranding is seen at the lateral left lung base consistent with plate atelectasis and/or scarring. Lungs are adequately expanded and appear clear. Pulmonary vascularity is normal. No pneumothorax or pleural effusion is seen. Heart size is normal. A calcified, tortuous thoracic aorta is seen. There is some convexity of the lower thoracic spine toward the left. Impression: 1. Unsuccessful placement of NG tube. The NG tube is only partially seen at the superior margin of the film in the lower neck region. It appears coiled upon itself. 2. No acute cardiopulmonary disease seen.
[2022-01-23] MEDS ORDERED: TROSPIUM CHLORIDE 20 MG PO SCH (10:00)
[2022-01-23] MEDS: PROTONIX 40 MG IV IV SCH (10:18)
[2022-01-23] MEDS: Flomax 0.4 MG PO SCH (10:37)
[2022-01-23] MEDS: NEURONTIN PO SCH ×4 (10:38→21:56)
[2022-01-23] MEDS: SYNTHROID 100 MCG PO SCH (10:38)
[2022-01-23] MEDS: Proscar 5 MG PO SCH (10:38)
[2022-01-23] MEDS: PIPERACILLIN/TAZOBACTAM 3.375 GM in Sodium Chloride 100ML MINI-BAG PLUS 100 ML IV SCH (17:27)
--- NOTE | 2022-01-23 17:52 | PCM.NOTE ---
Date and Time: 01/23/22 175 Objective Exam Wound Assessment: Skin/Wound Assessment Wound/Incision Assessment Start: 01/23/22 14:53 Text: Status: Active Freq: Protocol: Document 01/23/22 08:00 BA (Rec: 01/23/22 14:58 BA [id number]) Wound/Incision Assessment Medial Abdomen Wound Assessment Shift Assessment Wound Type Incision Wound Stage Non Pressure Wound Dressing Status Dry & Intact Drainage Amount None Drainage Odor None/Absent Comment surgical dressing remains CDI with abd binder in place. OBJECTIVE DATA Vital Signs: Vital Signs - 24 hr Temp Pulse Resp BP Pulse Ox 01/23/22 16:00 99.3 F 94 H 20 183/93 97 01/23/22 12:00 103 H 16 168/89 97 01/23/22 08:00 98.8 F 99 H 16 161/85 96 01/23/22 05:02 99.5 F 84 16 178/86 95 01/23/22 04:00 99.5 F 99 H 16 185/85 95 01/23/22 03:05 92 H 16 171/88 95 01/23/22 02:30 95 H 12 159/87 95 01/23/22 02:10 99.5 F 97 H 17 159/83 97 01/23/22 01:55 96 H 18 163/85 95 01/23/22 01:49 99.5 F 97 H 18 182/89 95 01/22/22 23:00 93 H 164/89 97 01/22/22 22:12 98 01/22/22 22:00 91 H 170/99 97 01/22/22 21:52 145/85 98 01/22/22 21:14 96 H 145/85 98 01/22/22 20:12 97 H 18 151/89 97 01/22/22 19:46 101 H 97 01/22/22 18:53 98.0 F 107 H 18 155/113 98 Pain Assessment - Last Documented Pain Intensity 6 Pain Scale Used 0-10 Pain Scale Intake and Output: Intake & Output 01/21/22 01/22/22 01/23/22 01/24/22 11:59 11:59 11:59 11:59 Intake Total 440 Output Total 350 Balance 90 Weight 55.1 kg 55.1 kg Lab Results: Lab Results-Last 24 Hours 01/22/22 01/22/22 01/22/22 Range/Units 02:00 19:13 19:25 WBC 16.2 H (4.0-10.5) x10^3/uL RBC 5.08 (4.1-5.6) x10^6/uL Hgb 15.1 (12.5-18.0) g/dL Hct 44.8 (42-50) % MCV 88.2 (78-100) fL MCH 29.7 (26-32) pg MCHC 33.7 (32-36) g/dL RDW 12.0 (11.5-14.0) % Plt Count 425 (150-450) x10^3/uL MPV 9.2 (7.5-11.0) fL Gran % 85.1 H (36.0-66.0) % Immature Gran % (Auto) 0.5 H (0.00-0.4) % Nucleat RBC Rel Count 0.0 (0.00-0.1) % Eos # (Auto) 0 (0-0.5) x10^3/uL Immature Gran # (Auto) 0.08 H (0.00-0.03) x10^3u/L Absolute Lymphs (auto) 1.14 (1.0-4.6) x10^3/uL Absolute Monos (auto) 1.14 (0.0-1.3) x10^3/uL Absolute Nucleated RBC 0.00 (0.00-0.01) x10^3u/L Lymphocytes % 7.1 L (24.0-44.0) % Monocytes % 7.1 (0.0-12.0) % Eosinophils % 0.0 (0.00-5.0) % Basophils % 0.2 (0.0-0.4) % Absolute Granulocytes 13.77 H (1.4-6.9) x10^3/uL Basophils # 0.03 (0-0.4) x10^3/uL Sodium (137-145) mmol/L Potassium (3.5-5.1) mmol/L Chloride (98-107) mmol/L Carbon Dioxide (22-30) mmol/L Anion Gap (5-15) MEQ/L BUN (9-20) mg/dL Creatinine (0.66-1.25) mg/dL Estimated GFR ML/MIN Glucose (74-106) mg/dL Lactic Acid 2.9 H (0.4-2.0) Calcium (8.4-10.2) mg/dL Total Bilirubin (0.2-1.3) mg/dL AST (17-59) U/L ALT (0-50) U/L Alkaline Phosphatase (38-126) U/L Serum Total Protein (6.3-8.2) g/dL Albumin (3.5-5.0) g/dL Lipase (23-300) U/L Procalcitonin (0.030-0.080) ng/mL Urinalys Dipstick Clnc Urine Color (YELLOW) Urine Appearance (CLEAR) Urine pH (5-6) Ur Specific [place] (1.005-1.025) POC Urine Protein Conf (Negative) Urine Ketones (NEGATIVE) Urine Nitrite (NEGATIVE) Urine Bilirubin (NEGATIVE) Urine Urobilinogen (0-1) mg/dL Urine Leukocytes (NEGATIVE) Urine WBC (Auto) (0-5) /HPF Urine RBC (Auto) (0-2) /HPF U Epithel Cells (Auto) (FEW) /HPF Urine Bacteria (Auto) (NEGATIVE) /HPF Urine RBC (0-5) Bandar/ul Urine Mucus (Auto) (NEGATIVE) /HPF Ur Culture Indicated? Urine Glucose (NEGATIVE) mg/dL Influenza Type A Ag NEGATIVE (NEGATIVE) Influenza Type B Ag NEGATIVE (NEGATIVE) RSV (PCR) NEGATIVE (Negative) SARS-CoV-2 (PCR) NEGATIVE (NEGATIVE) 01/22/22 01/22/22 01/22/22 Range/Units 19:25 19:25 19:30 WBC (4.0-10.5) x10^3/uL RBC (4.1-5.6) x10^6/uL Hgb (12.5-18.0) g/dL Hct (42-50) % MCV (78-100) fL MCH (26-32) pg MCHC (32-36) g/dL RDW (11.5-14.0) % Plt Count (150-450) x10^3/uL MPV (7.5-11.0) fL Gran % (36.0-66.0) % Immature Gran % (Auto) (0.00-0.4) % Nucleat RBC Rel Count (0.00-0.1) % Eos # (Auto) (0-0.5) x10^3/uL Immature Gran # (Auto) (0.00-0.03) x10^3u/L Absolute Lymphs (auto) (1.0-4.6) x10^3/uL Absolute Monos (auto) (0.0-1.3) x10^3/uL Absolute Nucleated RBC (0.00-0.01) x10^3u/L Lymphocytes % (24.0-44.0) % Monocytes % (0.0-12.0) % Eosinophils % (0.00-5.0) % Basophils % (0.0-0.4) % Absolute Granulocytes (1.4-6.9) x10^3/uL Basophils # (0-0.4) x10^3/uL Sodium 131 L (137-145) mmol/L Potassium 4.2 (3.5-5.1) mmol/L Chloride 92 L (98-107) mmol/L Carbon Dioxide 23 (22-30) mmol/L Anion Gap 20.0 H (5-15) MEQ/L BUN 16 (9-20) mg/dL Creatinine 0.89 (0.66-1.25) mg/dL Estimated GFR > 60.0 ML/MIN Glucose 139 H (74-106) mg/dL Lactic Acid (0.4-2.0) Calcium 9.8 (8.4-10.2) mg/dL Total Bilirubin 1.30 (0.2-1.3) mg/dL AST 21 (17-59) U/L ALT 15 (0-50) U/L Alkaline Phosphatase 84 (38-126) U/L Serum Total Protein 8.0 (6.3-8.2) g/dL Albumin 4.8 (3.5-5.0) g/dL Lipase 42 (23-300) U/L Procalcitonin 0.093 H (0.030-0.080) ng/mL Urinalys Dipstick Clnc MAIN LAB Urine Color DARK YELLOW (YELLOW) Urine Appearance SLIGHTLY CLOUDY (CLEAR) Urine pH 6.5 (5-6) Ur Specific [place] >=1.030 (1.005-1.025) POC Urine Protein Conf 100 (Negative) Urine Ketones >=160 (NEGATIVE) Urine Nitrite POSITIVE (NEGATIVE) Urine Bilirubin SMALL (NEGATIVE) Urine Urobilinogen 1 (0-1) mg/dL Urine Leukocytes TRACE (NEGATIVE) Urine WBC (Auto) >100 (0-5) /HPF Urine RBC (Auto) 6-10 (0-2) /HPF U Epithel Cells (Auto) NONE (FEW) /HPF Urine Bacteria (Auto) FEW (NEGATIVE) /HPF Urine RBC MODERATE (0-5) Bandar/ul Urine Mucus (Auto) SLIGHT (NEGATIVE) /HPF Ur Culture Indicated? YES Urine Glucose NEGATIVE (NEGATIVE) mg/dL Influenza Type A Ag (NEGATIVE) Influenza Type B Ag (NEGATIVE) RSV (PCR) (Negative) SARS-CoV-2 (PCR) (NEGATIVE) 01/22/22 01/23/22 01/23/22 Range/Units 21:36 02:05 04:25 WBC 25.9 H* (4.0-10.5) x10^3/uL RBC 4.14 (4.1-5.6) x10^6/uL Hgb 12.4 L (12.5-18.0) g/dL Hct 37.0 L (42-50) % MCV 89.4 (78-100) fL MCH 30.0 (26-32) pg MCHC 33.5 (32-36) g/dL RDW 12.3 (11.5-14.0) % Plt Count 355 (150-450) x10^3/uL MPV 9.1 (7.5-11.0) fL Gran % (36.0-66.0) % Immature Gran % (Auto) (0.00-0.4) % Nucleat RBC Rel Count (0.00-0.1) % Eos # (Auto) (0-0.5) x10^3/uL Immature Gran # (Auto) (0.00-0.03) x10^3u/L Absolute Lymphs (auto) (1.0-4.6) x10^3/uL Absolute Monos (auto) (0.0-1.3) x10^3/uL Absolute Nucleated RBC (0.00-0.01) x10^3u/L Lymphocytes % (24.0-44.0) % Monocytes % (0.0-12.0) % Eosinophils % (0.00-5.0) % Basophils % (0.0-0.4) % Absolute Granulocytes (1.4-6.9) x10^3/uL Basophils # (0-0.4) x10^3/uL Sodium (137-145) mmol/L Potassium (3.5-5.1) mmol/L Chloride (98-107) mmol/L Carbon Dioxide (22-30) mmol/L Anion Gap (5-15) MEQ/L BUN (9-20) mg/dL Creatinine (0.66-1.25) mg/dL Estimated GFR ML/MIN Glucose (74-106) mg/dL Lactic Acid 0.8 (0.4-2.0) Calcium (8.4-10.2) mg/dL Total Bilirubin (0.2-1.3) mg/dL AST (17-59) U/L ALT (0-50) U/L Alkaline Phosphatase (38-126) U/L Serum Total Protein (6.3-8.2) g/dL Albumin (3.5-5.0) g/dL Lipase (23-300) U/L Procalcitonin (0.030-0.080) ng/mL Urinalys Dipstick Clnc MAIN LAB Urine Color YELLOW (YELLOW) Urine Appearance CLEAR (CLEAR) Urine pH 6.0 (5-6) Ur Specific [place] 1.025 (1.005-1.025) POC Urine Protein Conf 100 (Negative) Urine Ketones LARGE-80 (NEGATIVE) Urine Nitrite POSITIVE (NEGATIVE) Urine Bilirubin SMALL (NEGATIVE) Urine Urobilinogen 1 (0-1) mg/dL Urine Leukocytes TRACE (NEGATIVE) Urine WBC (Auto) 26-50 (0-5) /HPF Urine RBC (Auto) 26-50 (0-2) /HPF U Epithel Cells (Auto) NONE (FEW) /HPF Urine Bacteria (Auto) NONE (NEGATIVE) /HPF Urine RBC MODERATE (0-5) Bandar/ul Urine Mucus (Auto) SLIGHT (NEGATIVE) /HPF Ur Culture Indicated? Urine Glucose NEGATIVE (NEGATIVE) mg/dL Influenza Type A Ag (NEGATIVE) Influenza Type B Ag (NEGATIVE) RSV (PCR) (Negative) SARS-CoV-2 (PCR) (NEGATIVE) 08/05/22 Range/Units 04:25 WBC (4.0-10.5) x10^3/uL RBC (4.1-5.6) x10^6/uL Hgb (12.5-18.0) g/dL Hct (42-50) % MCV (78-100) fL MCH (26-32) pg MCHC (32-36) g/dL RDW (11.5-14.0) % Plt Count (150-450) x10^3/uL MPV (7.5-11.0) fL Gran % (36.0-66.0) % Immature Gran % (Auto) (0.00-0.4) % Nucleat RBC Rel Count (0.00-0.1) % Eos # (Auto) (0-0.5) x10^3/uL Immature Gran # (Auto) (0.00-0.03) x10^3u/L Absolute Lymphs (auto) (1.0-4.6) x10^3/uL Absolute Monos (auto) (0.0-1.3) x10^3/uL Absolute Nucleated RBC (0.00-0.01) x10^3u/L Lymphocytes % (24.0-44.0) % Monocytes % (0.0-12.0) % Eosinophils % (0.00-5.0) % Basophils % (0.0-0.4) % Absolute Granulocytes (1.4-6.9) x10^3/uL Basophils # (0-0.4) x10^3/uL Sodium 133 L (137-145) mmol/L Potassium 3.5 (3.5-5.1) mmol/L Chloride 103 (98-107) mmol/L Carbon Dioxide 22 (22-30) mmol/L Anion Gap 12.3 (5-15) MEQ/L BUN 13 (9-20) mg/dL Creatinine 0.74 (0.66-1.25) mg/dL Estimated GFR > 60.0 ML/MIN Glucose 112 H (74-106) mg/dL Lactic Acid (0.4-2.0) Calcium 8.2 L D (8.4-10.2) mg/dL Total Bilirubin (0.2-1.3) mg/dL AST (17-59) U/L ALT (0-50) U/L Alkaline Phosphatase (38-126) U/L Serum Total Protein (6.3-8.2) g/dL Albumin (3.5-5.0) g/dL Lipase (23-300) U/L Procalcitonin (0.030-0.080) ng/mL Urinalys Dipstick Clnc Urine Color (YELLOW) Urine Appearance (CLEAR) Urine pH (5-6) Ur Specific [place] (1.005-1.025) POC Urine Protein Conf (Negative) Urine Ketones (NEGATIVE) Urine Nitrite (NEGATIVE) Urine Bilirubin (NEGATIVE) Urine Urobilinogen (0-1) mg/dL Urine Leukocytes (NEGATIVE) Urine WBC (Auto) (0-5) /HPF Urine RBC (Auto) (0-2) /HPF U Epithel Cells (Auto) (FEW) /HPF Urine Bacteria (Auto) (NEGATIVE) /HPF Urine RBC (0-5) Bandar/ul Urine Mucus (Auto) (NEGATIVE) /HPF Ur Culture Indicated? Urine Glucose (NEGATIVE) mg/dL Influenza Type A Ag (NEGATIVE) Influenza Type B Ag (NEGATIVE) RSV (PCR) (Negative) SARS-CoV-2 (PCR) (NEGATIVE) Radiology Exams: Radiology Procedures Category Date Time Status ABDOMEN AND PELVIS W/0 CONTRAS [CT] Stat Exams 01/22/22 19:54 Completed CHEST 1 VIEW (PORTABLE) Routine Exams 01/22/22 22:45 Completed CHEST 1 VIEW (PORTABLE) Routine Exams 01/22/22 22:47 Completed Multi-Disciplinary Progress Notes: Multi-Disciplinary Progress Notes 01/23/22 12:49 Case Management Note by Sandi Vizcarra REFERRAL FAXED TO [facility]. THEY WILL NEED NOTIFIED AT TIME OF DC AT [phone]. THEY WILL NEED FAXED THE DC INSTRUCTIONS, DC MED LIST AND DC SUMMARY ( IF AVAILABLE) TO [phone] Initialized on 01/23/22 12:49 - END OF NOTE Assessment/Plan (1) Obstructed umbilical hernia Current Visit: Yes Status: Acute Assessment & Plan: as of 7am. S: no acute issues overnight. no n/v. pain toelrable. no flatus no bm. hasn't really been out of bed. O vss nad nonlbaroed resps rrr nd, soft, attp c/d/i a/p: s/p ex lap sbr hernia repair. -await return of bowel function cont ng to LIS for now. cont supportive care. out of bed IS. Code(s): K42.0 - UMBILICAL HERNIA WITH OBSTRUCTION, WITHOUT GANGRENE
[2022-01-23] MEDS ORDERED: APRESOLINE 20 MG/ML INJ IV PRN (19:40)
[2022-01-23] MEDS ORDERED: ENOXAPARIN SODIUM SQ SCH (22:00)
[2022-01-24] MEDS: PIPERACILLIN/TAZOBACTAM 3.375 GM in Sodium Chloride 100ML MINI-BAG PLUS 100 ML IV SCH (01:31)
[2022-01-24] MEDS: MORPHINE SULFATE 4 MG INJ IV PRN ×7 (01:40→17:59)
[2022-01-24] MEDS: Lactated Ringers 1,000 ML IV SCH ×4 (05:22→17:16)
[2022-01-24 08:32] LABS: Absolute Neutrophil Ct (ANC) 11.18 x10^3/uL (1.4-6.9); Basophil (Absolute #) 0.04 x10^3/uL (0-0.4); Eosinophil % 0.1 % (0.00-5.0); Eosinophil (Absolute #) 0.01 x10^3/uL (0-0.5); Hematocrit 33.7 % (42-50); Hemoglobin 11.1 g/dL (12.5-18.0); Lymphocyte (Absolute #) 1.18 x10^3/uL (1.0-4.6); Lymphocytes % 8.4 % (24.0-44.0); Mean Cell Volume 91.6 fL (78-100); Mean Corpuscular Hemoglobin 30.2 pg (26-32); Mean Corpuscular Hgb Concent. 32.9 g/dL (32-36); Mean Platelet Volume 8.7 fL (7.5-11.0); Monocyte (Absolute #) 1.64 x10^3/uL (0.0-1.3); Monocytes % 11.6 % (0.0-12.0); Neutrophil % 79.3 % (36.0-66.0); Platelet Count 297 x10^3/uL (150-450); Red Blood Count 3.68 x10^6/uL (4.1-5.6); Red Cell Distribution Width 12.2 % (11.5-14.0); White Blood Count 14.1 x10^3/uL (4.0-10.5)
[2022-01-24] MEDS: Flomax 0.4 MG PO SCH (08:40)
[2022-01-24] MEDS: NEURONTIN PO SCH ×4 (08:41→22:44)
[2022-01-24] MEDS: Proscar 5 MG PO SCH (08:41)
[2022-01-24] MEDS: SYNTHROID 100 MCG PO SCH (08:41)
[2022-01-24] MEDS: PROTONIX 40 MG IV IV SCH (08:45)
[2022-01-24 08:50] LABS: ALKALINE PHOSPHATASE 49 U/L (38-126); BLOOD UREA NITROGEN 11 mg/dL (9-20); CHLORIDE 100 mmol/L (98-107); Calcium 8.3 mg/dL (8.4-10.2); Carbon Dioxide 25 mmol/L (22-30); Creatinine 1 0.74 mg/dL (0.66-1.25); EST GLOMERULAR FILTRATION RATE > 60.0 ML/MIN; Glucose 92 mg/dL (74-106); Potassium 3.7 mmol/L (3.5-5.1); SGOT/AST 17 U/L (17-59); SGPT/ALT 10 U/L (0-50); SODIUM 133 mmol/L (137-145); Total Protein 5.7 g/dL (6.3-8.2)
--- NOTE | 2022-01-24 10:25 | PCM.NOTE ---
Date and Time: 01/24/22 1023 Subjective Assessment: no flatus or bowel movement since surgery, pain is tolerable. bp improved, giving prn hydralazine Objective Exam General Appearance: no apparent distress Neurologic Exam: alert, oriented x 3 Wound Assessment: Skin/Wound Assessment Wound/Incision Assessment Start: 01/23/22 20:08 Text: Status: Active Freq: Q4H Protocol: Document 01/24/22 07:38 HAKEEM (Rec: 01/24/22 07:38 HAKEEM [id number]) Wound/Incision Assessment Medial Abdomen Wound Assessment Shift Assessment Wound Type Incision Wound Stage Non Pressure Wound Dressing Status Dry & Intact Comment surgical dressing remains CDI, abd binder in place. Wound Photo Photo Taken No Respiratory Exam: normal breath sounds, lungs clear, No respiratory distress Cardiovascular Exam: regular rate/rhythm, normal heart sounds Gastrointestinal/Abdomen Exam: soft, other (dressing c/d/i, NG to LIS), No normal bowel sounds OBJECTIVE DATA Vital Signs: Vital Signs - 24 hr Temp Pulse Resp BP Pulse Ox 01/24/22 07:32 97.7 F 101 H 19 146/73 95 01/24/22 03:59 98.9 F 98 H 16 141/68 94 L 01/24/22 00:00 98.4 F 104 H 18 186/95 96 01/23/22 19:47 98.7 F 100 H 16 172/86 96 01/23/22 16:00 99.3 F 94 H 20 183/93 97 01/23/22 12:00 103 H 16 168/89 97 Pain Assessment - Last Documented Pain Intensity 6 Pain Scale Used 0-10 Pain Scale Intake and Output: Intake & Output 01/21/22 01/22/22 01/23/22 01/24/22 11:59 11:59 11:59 11:59 Intake Total 440 3175 Output Total 350 1050 Balance 90 2125 Weight 55.1 kg 58.5 kg Lab Results: Lab Results-Last 24 Hours 01/24/22 01/24/22 Range/Units 08:21 08:21 WBC 14.1 H (4.0-10.5) x10^3/uL RBC 3.68 L (4.1-5.6) x10^6/uL Hgb 11.1 L (12.5-18.0) g/dL Hct 33.7 L (42-50) % MCV 91.6 (78-100) fL MCH 30.2 (26-32) pg MCHC 32.9 (32-36) g/dL RDW 12.2 (11.5-14.0) % Plt Count 297 (150-450) x10^3/uL MPV 8.7 (7.5-11.0) fL Gran % 79.3 H (36.0-66.0) % Immature Gran % (Auto) 0.3 (0.00-0.4) % Nucleat RBC Rel Count 0.0 (0.00-0.1) % Eos # (Auto) 0.01 (0-0.5) x10^3/uL Immature Gran # (Auto) 0.04 H (0.00-0.03) x10^3u/L Absolute Lymphs (auto) 1.18 (1.0-4.6) x10^3/uL Absolute Monos (auto) 1.64 H (0.0-1.3) x10^3/uL Absolute Nucleated RBC 0.00 (0.00-0.01) x10^3u/L Lymphocytes % 8.4 L (24.0-44.0) % Monocytes % 11.6 (0.0-12.0) % Eosinophils % 0.1 (0.00-5.0) % Basophils % 0.3 (0.0-0.4) % Absolute Granulocytes 11.18 H (1.4-6.9) x10^3/uL Basophils # 0.04 (0-0.4) x10^3/uL Sodium 133 L (137-145) mmol/L Potassium 3.7 (3.5-5.1) mmol/L Chloride 100 (98-107) mmol/L Carbon Dioxide 25 (22-30) mmol/L Anion Gap 12.0 (5-15) MEQ/L BUN 11 (9-20) mg/dL Creatinine 0.74 (0.66-1.25) mg/dL Estimated GFR > 60.0 ML/MIN Glucose 92 (74-106) mg/dL Calcium 8.3 L (8.4-10.2) mg/dL Total Bilirubin 0.90 (0.2-1.3) mg/dL AST 17 (17-59) U/L ALT 10 (0-50) U/L Alkaline Phosphatase 49 (38-126) U/L Serum Total Protein 5.7 L (6.3-8.2) g/dL Albumin 3.0 L (3.5-5.0) g/dL Radiology Exams: Radiology Procedures Category Date Time Status ABDOMEN AND PELVIS W/0 CONTRAS [CT] Stat Exams 01/22/22 19:54 Completed CHEST 1 VIEW (PORTABLE) Routine Exams 01/22/22 22:45 Completed CHEST 1 VIEW (PORTABLE) Routine Exams 01/22/22 22:47 Completed Multi-Disciplinary Progress Notes: Multi-Disciplinary Progress Notes 01/23/22 12:49 Case Management Note by Sandi Vizcarra REFERRAL FAXED TO [facility]. THEY WILL NEED NOTIFIED AT TIME OF DC AT [phone]. THEY WILL NEED FAXED THE DC INSTRUCTIONS, DC MED LIST AND DC SUMMARY ( IF AVAILABLE) TO [phone] Initialized on 01/23/22 12:49 - END OF NOTE Assessment/Plan (1) Obstructed umbilical hernia Current Visit: Yes Status: Acute Assessment & Plan: surgery following, awaiting return of bowel function. encourage ambulation and out of bed as tolerated Code(s): K42.0 - UMBILICAL HERNIA WITH OBSTRUCTION, WITHOUT GANGRENE (2) UTI (urinary tract infection) Current Visit: Yes Status: Acute Assessment & Plan: urine culture +gram positive bacteria, ID pending. no current abx coverage. will start rocephin and await ID Code(s): N39.0 - URINARY TRACT INFECTION, SITE NOT SPECIFIED
[2022-01-24] MEDS: ROCEPHIN 1 Gm-D5w 50 ml Bag** 1 G/50 ML IVPB IV SCH (11:15)
[2022-01-24] MEDS ORDERED: CARDIZEM DRIP 100 MG/100 ML D5W 100 ML IV PRN (12:51)
[2022-01-24] MEDS ORDERED: PHARMACY DOSING REQUEST MC ONE (13:04)
[2022-01-24] MEDS: CARDIZEM DRIP 100 MG/100 ML D5W 100 ML IV PRN (13:15)
[2022-01-24] MEDS ORDERED: Heparin 5000 UNITS/0.5 ML (HIGH RISK MED) IV PRN (13:20)
[2022-01-24] MEDS ORDERED: Heparin 25,000 units/D5W 250ML PREMIX 25,000 UNITS/250 ML BAG IV SCH (13:30)
[2022-01-24 15:39] LABS: Slide Review 1 YES
[2022-01-24] MEDS: DILAUDID 1 MG/1ML PCA IV PRN (19:12)
[2022-01-24] MEDS: CHLORASEPTIC SPRAY 180 ML PO PRN ×2 (21:20→22:30)
[2022-01-25] MEDS: CARDIZEM DRIP 100 MG/100 ML D5W 100 ML IV PRN (00:31)
[2022-01-25] MEDS: Lactated Ringers 1,000 ML IV SCH ×4 (02:53→18:56)
[2022-01-25] MEDS: DILAUDID 1 MG/1ML PCA IV PRN ×2 (06:03→16:40)
[2022-01-25 06:11] LABS: Absolute Neutrophil Ct (ANC) 6.65 x10^3/uL (1.4-6.9); Basophil (Absolute #) 0.02 x10^3/uL (0-0.4); Eosinophil % 0.6 % (0.00-5.0); Eosinophil (Absolute #) 0.05 x10^3/uL (0-0.5); Hematocrit 31.3 % (42-50); Lymphocyte (Absolute #) 0.94 x10^3/uL (1.0-4.6); Lymphocytes % 10.6 % (24.0-44.0); Mean Cell Volume 92.9 fL (78-100); Mean Corpuscular Hemoglobin 29.7 pg (26-32); Mean Corpuscular Hgb Concent. 31.9 g/dL (32-36); Mean Platelet Volume 9.3 fL (7.5-11.0); Monocyte (Absolute #) 1.23 x10^3/uL (0.0-1.3); Monocytes % 13.8 % (0.0-12.0); Neutrophil % 74.7 % (36.0-66.0); Platelet Count 266 x10^3/uL (150-450); Red Blood Count 3.37 x10^6/uL (4.1-5.6); Red Cell Distribution Width 12.1 % (11.5-14.0); White Blood Count 8.9 x10^3/uL (4.0-10.5)
[2022-01-25 06:24] LABS: ALBUMIN 2.8 g/dL (3.5-5.0); ALKALINE PHOSPHATASE 46 U/L (38-126); ANION GAP 10.3 MEQ/L (5-15); BLOOD UREA NITROGEN 12 mg/dL (9-20); CHLORIDE 98 mmol/L (98-107); Calcium 8.2 mg/dL (8.4-10.2); Carbon Dioxide 24 mmol/L (22-30); Creatinine 1 0.63 mg/dL (0.66-1.25); EST GLOMERULAR FILTRATION RATE > 60.0 ML/MIN; Glucose 99 mg/dL (74-106); MAGNESIUM 1.8 mg/dL (1.6-2.3); Potassium 3.6 mmol/L (3.5-5.1); SGOT/AST 18 U/L (17-59); SGPT/ALT 9 U/L (0-50); SODIUM 129 mmol/L (137-145); Total Protein 5.4 g/dL (6.3-8.2)
--- NOTE | 2022-01-25 07:27 | XRAY ---
Indication: NG tube replacement. Comparison: January 22, 2022 Portable chest demonstrates new NG tube tip at gastroesophageal junction. Consider advancement. Remaining heart and lungs unremarkable. Comment: Preliminary interpretation made by [facility]. No critical discrepancy.
--- NOTE | 2022-01-25 09:20 | PCM.NOTE ---
Date and Time: 01/25/22915 Subjective Assessment: patient was moved to ICU yesterday, after he was up and davis removed he developed a fib with rvr, converted on cardizem drip at 5mg/hr. he feels better today, passed some flatus Objective Exam General Appearance: no apparent distress, thin Neurologic Exam: alert, oriented x 3 Skin Exam: normal color, warm, dry Wound Assessment: Skin/Wound Assessment Wound/Incision Assessment Start: 01/23/22 20:08 Text: Status: Active Freq: Q4H Protocol: Document 01/25/22 07:34 HAKEEM (Rec: 01/25/22 07:37 HAKEEM [id number]) Wound/Incision Assessment Medial Abdomen Wound Type Incision Dressing Status Dry & Intact Wound Photo Photo Taken No Respiratory Exam: normal breath sounds, lungs clear, No respiratory distress Cardiovascular Exam: regular rate/rhythm, normal heart sounds Gastrointestinal/Abdomen Exam: soft, other (dressing clean, dry, intact. bowel sounds present) Extremity Exam: normal inspection, normal range of motion OBJECTIVE DATA Vital Signs: Vital Signs - 24 hr Temp Pulse Resp BP BP Pulse Ox 01/25/22 09:00 76 19 122/83 96 01/25/22 08:00 77 123/54 01/25/22 07:34 78 19 121/57 96 01/25/22 07:09 71 21 121/57 94 L 01/25/22 07:00 98.4 F 76 20 130/69 96 01/25/22 06:03 18 94 L 01/25/22 06:00 77 112/67 01/25/22 05:50 77 112/67 01/25/22 05:44 99.6 F 80 13 112/67 93 L 01/25/22 05:00 72 117/55 01/25/22 04:00 97.5 F 72 13 99/59 115/51 94 L 01/25/22 03:12 18 94 L 01/25/22 03:00 71 115/56 01/25/22 02:31 108/60 01/25/22 02:00 98.5 F 77 17 110/52 136/64 96 01/25/22 01:47 73 110/52 01/25/22 01:00 98.2 F 72 18 110/56 110/53 94 L 01/25/22 00:00 98.2 F 70 18 112/61 110/53 94 L 01/24/22 23:03 74 18 110/54 98 01/24/22 23:00 98.7 F 75 18 111/58 110/54 98 01/24/22 22:01 98 01/24/22 22:00 75 111/58 01/24/22 21:56 99.1 F 82 18 108/58 95 01/24/22 21:30 80 119/63 01/24/22 21:00 82 16 111/71 111/71 95 01/24/22 20:37 80 112/58 01/24/22 20:00 99.6 F 78 14 106/45 119/63 95 01/24/22 19:45 78 106/54 01/24/22 19:12 20 95 01/24/22 19:00 99.6 F 87 16 114/55 119/63 95 01/24/22 18:42 87 114/55 01/24/22 18:00 80 13 109/52 109/52 94 L 01/24/22 17:00 99.1 F 81 13 111/55 111/55 91 L 01/24/22 16:02 99.1 F 89 12 112/59 95 01/24/22 16:00 87 112/59 01/24/22 15:01 95 H 15 104/60 95 01/24/22 15:00 96 H 104/57 01/24/22 14:10 142 H 110/82 01/24/22 13:45 150 H 116/67 01/24/22 13:15 170 H 20 148/77 01/24/22 12:00 99.8 F 98 H 20 138/70 96 Pain Assessment - Last Documented Pain Intensity 0 Pain Scale Used 0-10 Pain Scale Intake and Output: Intake & Output 01/22/22 01/23/22 01/24/22 01/25/22 11:59 11:59 11:59 11:59 Intake Total 440 3175 2180 Output Total 350 1050 650 Balance 90 2125 1530 Weight 55.1 kg 58.5 kg 60.7 kg Lab Results: Lab Results-Last 24 Hours 01/24/22 01/24/22 01/25/22 Range/Units 08:21 18:03 00:14 WBC (4.0-10.5) x10^3/uL RBC (4.1-5.6) x10^6/uL Hgb (12.5-18.0) g/dL Hct (42-50) % MCV (78-100) fL MCH (26-32) pg MCHC (32-36) g/dL RDW (11.5-14.0) % Plt Count (150-450) x10^3/uL MPV (7.5-11.0) fL Gran % (36.0-66.0) % Immature Gran % (Auto) (0.00-0.4) % Nucleat RBC Rel Count (0.00-0.1) % Eos # (Auto) (0-0.5) x10^3/uL Immature Gran # (Auto) (0.00-0.03) x10^3u/L Absolute Lymphs (auto) (1.0-4.6) x10^3/uL Absolute Monos (auto) (0.0-1.3) x10^3/uL Absolute Nucleated RBC (0.00-0.01) x10^3u/L Lymphocytes % (24.0-44.0) % Monocytes % (0.0-12.0) % Eosinophils % (0.00-5.0) % Basophils % (0.0-0.4) % Absolute Granulocytes (1.4-6.9) x10^3/uL Basophils # (0-0.4) x10^3/uL APTT 94.2 H 55.8 H (25.1-36.5) SECONDS Sodium (137-145) mmol/L Potassium (3.5-5.1) mmol/L Chloride (98-107) mmol/L Carbon Dioxide (22-30) mmol/L Anion Gap (5-15) MEQ/L BUN (9-20) mg/dL Creatinine (0.66-1.25) mg/dL Estimated GFR ML/MIN Glucose (74-106) mg/dL Calcium (8.4-10.2) mg/dL Magnesium (1.6-2.3) mg/dL Total Bilirubin (0.2-1.3) mg/dL AST (17-59) U/L ALT (0-50) U/L Alkaline Phosphatase (38-126) U/L Serum Total Protein (6.3-8.2) g/dL Albumin (3.5-5.0) g/dL Slides for Path Review YES 01/25/22 01/25/22 01/25/22 Range/Units 05:49 05:49 06:20 WBC 8.9 (4.0-10.5) x10^3/uL RBC 3.37 L (4.1-5.6) x10^6/uL Hgb 10.0 L (12.5-18.0) g/dL Hct 31.3 L (42-50) % MCV 92.9 (78-100) fL MCH 29.7 (26-32) pg MCHC 31.9 L (32-36) g/dL RDW 12.1 (11.5-14.0) % Plt Count 266 (150-450) x10^3/uL MPV 9.3 (7.5-11.0) fL Gran % 74.7 H (36.0-66.0) % Immature Gran % (Auto) 0.1 (0.00-0.4) % Nucleat RBC Rel Count 0.0 (0.00-0.1) % Eos # (Auto) 0.05 (0-0.5) x10^3/uL Immature Gran # (Auto) 0.01 (0.00-0.03) x10^3u/L Absolute Lymphs (auto) 0.94 L (1.0-4.6) x10^3/uL Absolute Monos (auto) 1.23 (0.0-1.3) x10^3/uL Absolute Nucleated RBC 0.00 (0.00-0.01) x10^3u/L Lymphocytes % 10.6 L (24.0-44.0) % Monocytes % 13.8 H (0.0-12.0) % Eosinophils % 0.6 (0.00-5.0) % Basophils % 0.2 (0.0-0.4) % Absolute Granulocytes 6.65 (1.4-6.9) x10^3/uL Basophils # 0.02 (0-0.4) x10^3/uL APTT 68.3 H (25.1-36.5) SECONDS Sodium 129 L (137-145) mmol/L Potassium 3.6 (3.5-5.1) mmol/L Chloride 98 (98-107) mmol/L Carbon Dioxide 24 (22-30) mmol/L Anion Gap 10.3 (5-15) MEQ/L BUN 12 (9-20) mg/dL Creatinine 0.63 L (0.66-1.25) mg/dL Estimated GFR > 60.0 ML/MIN Glucose 99 (74-106) mg/dL Calcium 8.2 L (8.4-10.2) mg/dL Magnesium 1.8 (1.6-2.3) mg/dL Total Bilirubin 0.60 (0.2-1.3) mg/dL AST 18 (17-59) U/L ALT 9 (0-50) U/L Alkaline Phosphatase 46 (38-126) U/L Serum Total Protein 5.4 L (6.3-8.2) g/dL Albumin 2.8 L (3.5-5.0) g/dL Slides for Path Review Radiology Exams: Radiology Procedures Category Date Time Status CHEST 1 VIEW (PORTABLE) Routine Exams 01/24/22 23:12 Completed Assessment/Plan (1) Obstructed umbilical hernia Current Visit: Yes Status: Acute Assessment & Plan: improving, if ok with surgery when NG removed and po started we can start on po cardizem for run of a fib, also has required some IV hydralazine for htn so po med will help with both issues. Code(s): K42.0 - UMBILICAL HERNIA WITH OBSTRUCTION, WITHOUT GANGRENE (2) Atrial fibrillation with RVR Current Visit: Yes Status: Acute Assessment & Plan: will start po cardizem cd at 120mg daily based on current drip, since he had a brief run and converted can stop heparin gtt and start lovenox 40mg daily Code(s): I48.91 - UNSPECIFIED ATRIAL FIBRILLATION (3) UTI (urinary tract infection) Current Visit: Yes Status: Acute Assessment & Plan: on rocephin day #2 today but urine culture still not final, gram positive ID pending. Code(s): N39.0 - URINARY TRACT INFECTION, SITE NOT SPECIFIED
[2022-01-25] MEDS: SYNTHROID 100 MCG PO SCH (10:02)
[2022-01-25] MEDS: ROCEPHIN 1 Gm-D5w 50 ml Bag** 1 G/50 ML IVPB IV SCH (10:02)
[2022-01-25] MEDS: Cardizem CD PO SCH (10:02)
[2022-01-25] MEDS: Flomax 0.4 MG PO SCH (10:02)
[2022-01-25] MEDS: Proscar 5 MG PO SCH (10:03)
[2022-01-25] MEDS: PROTONIX 40 MG IV IV SCH (10:03)
[2022-01-25] MEDS: NEURONTIN PO SCH ×4 (10:03→21:35)
[2022-01-25] MEDS: ENOXAPARIN SODIUM SQ SCH (10:11)
[2022-01-25] MEDS ORDERED: Lopressor 25MG Tab PO ONE (11:44)
[2022-01-25] MEDS: Ditropan 5 MG PO SCH ×2 (13:35→21:35)
[2022-01-25] MEDS ORDERED: MORPHINE SULFATE 2 MG INJ IV PRN (16:30)
[2022-01-25] MEDS: NORCO 7.5/325 MG TAB PO PRN ×2 (16:35→21:36)
[2022-01-26] MEDS: Lactated Ringers 1,000 ML IV SCH ×2 (04:08→20:44)
[2022-01-26 04:41] LABS: Absolute Neutrophil Ct (ANC) 4.41 x10^3/uL (1.4-6.9); Basophil (Absolute #) 0.04 x10^3/uL (0-0.4); Eosinophil % 4.3 % (0.00-5.0); Eosinophil (Absolute #) 0.31 x10^3/uL (0-0.5); Hematocrit 28.2 % (42-50); Hemoglobin 9.6 g/dL (12.5-18.0); Lymphocyte (Absolute #) 1.57 x10^3/uL (1.0-4.6); Lymphocytes % 21.7 % (24.0-44.0); Mean Cell Volume 89.2 fL (78-100); Mean Corpuscular Hemoglobin 30.4 pg (26-32); Mean Platelet Volume 9.2 fL (7.5-11.0); Monocyte (Absolute #) 0.87 x10^3/uL (0.0-1.3); Neutrophil % 61.1 % (36.0-66.0); Platelet Count 254 x10^3/uL (150-450); Red Blood Count 3.16 x10^6/uL (4.1-5.6); White Blood Count 7.2 x10^3/uL (4.0-10.5)
[2022-01-26 05:32] LABS: ALBUMIN 2.3 g/dL (3.5-5.0); ALKALINE PHOSPHATASE 39 U/L (38-126); BLOOD UREA NITROGEN 9 mg/dL (9-20); CHLORIDE 99 mmol/L (98-107); Calcium 7.7 mg/dL (8.4-10.2); Creatinine 1 0.65 mg/dL (0.66-1.25); EST GLOMERULAR FILTRATION RATE > 60.0 ML/MIN; Glucose 80 mg/dL (74-106); MAGNESIUM 1.7 mg/dL (1.6-2.3); SGOT/AST 15 U/L (17-59); SGPT/ALT 9 U/L (0-50); SODIUM 130 mmol/L (137-145); Total Protein 4.7 g/dL (6.3-8.2)
[2022-01-26 05:36] LABS: Carbon Dioxide 27 mmol/L (22-30)
--- NOTE | 2022-01-26 07:49 | CONS ---
CONSULT DATE: 01/23/2022 REASON FOR CONSULT: Abdominal pain. HISTORY: The patient presents with three days of worsening umbilical pain and bulge. He has noticed this umbilical hernia before that has become severe constant pain for the last three days. He does have nausea associated with it. He denies chest pain or shortness of breath. PAST MEDICAL HISTORY: Benign prostatic hypertrophy, hyperthyroid, chronic pain, arthritis. PAST SURGICAL HISTORY: Right hip replacement. MEDICATIONS: Medications reviewed in [facility] including Synthroid, [place] and benign prostatic hypertrophy medication. ALLERGIES: NKDA. SOCIAL HISTORY: Denies tobacco. FAMILY HISTORY: Noncontributory. PHYSICAL EXAMINATION: GENERAL: No acute distress. HEENT: Sclera nonicteric. Extraocular movements intact. NECK: Supple. No JVD. CHEST: Nonlabored breathing. ABDOMEN: Soft, mildly distended, incarcerated umbilical hernia with overlying erythema of the skin, very tender. EXTREMITIES: No peripheral edema. NEURO: Awake, alert, oriented. LAB DATA AND TESTS: CT scan shows an incarcerated umbilical hernia. ASSESSMENT AND PLAN: Incarcerated umbilical hernia suspect strangulation. Risks, benefits and alternatives to surgery discussed in depth with the patient including potential need for bowel resection, possibility of mesh if no resection needed and other risks and benefits of surgery. The patient would like to proceed.
--- NOTE | 2022-01-26 08:10 | OP ---
SURGERY DATE/TIME: 01/22/2022 2811 PREOPERATIVE DIAGNOSIS: Strangulated umbilical hernia. POSTOPERATIVE DIAGNOSIS: Strangulated umbilical hernia with acute irreversible small bowel ischemia. PROCEDURES: 1) Strangulated umbilical hernia repair. 2) Small bowel resection and anastomosis. SURGEON: Luis Miguel Walter M.D. ANESTHESIA: General. ESTIMATED BLOOD LOSS: 30 cc. COMPLICATIONS: None. SPECIMEN: Small bowel. FINDINGS: Strangulated small bowel and umbilical hernia. PATIENT PRESENTATION: This patient presents with a strangulated umbilical hernia. Discussed the risks and benefits of the procedure and the patient wished to proceed with the procedure. DESCRIPTION OF PROCEDURE: The patient was brought to the OR and placed supine on the operating table. Placed under general anesthesia. Abdomen was prepped and draped in sterile fashion. Vertical incision is made around the umbilicus with scalpel and electrocautery taking down to hernia sac. The hernia sac was entered incised sharply with scalpel. Hernia sac was opened up further. There was dark purple bowel inside of the hernia sac. The hernia sac was then further dissected free and the umbilicus transected from the fascia. The bowel was quite stuck. The umbilical hernia defect was opened slightly further to allow the bowel to be eviscerated and after freeing it by a margin of the fascial opening, the bowel surprising kinked up quite a bit. However, there was a dusky portion on antimesenteric side that appeared concerning that it may not survive even after waiting some time so the decision was made to resect this area. A [id number] small bowel anastomosis was then created with two firings of the [id number] AKSHAT blue stapler, one on the antimesenteric border and one to remove the enterotomy through windows created in the mesentery. The mesentery was taken between clamps and ties. The mesenteric defect was closed with 3-0 Vicryl suture. The anastomosis looked widely patent and well vascularized and was returned to the abdomen. Gloves were changed. The attention was then turned to the hernia defect. The fascia was cleared off and then the hernia defect was closed sequentially with [id number] Prolene sutures. These were tagged and tied sequentially. The umbilical stalk was reattached to the fascia with the 0 Vicryl suture. The wound was closed with conner after irrigating. The patient was then recovered and taken to PACU in stable condition.
[2022-01-26] MEDS ORDERED: K-LYTE PO ONE (08:31)
--- NOTE | 2022-01-26 08:34 | PCM.NOTE ---
Date and Time: 01/26/22831 Subjective Assessment: patient had a bowel movement yesterday morning, he is tolerating clears and doing well at this time. pain is well controlled Objective Exam General Appearance: no apparent distress Wound Assessment: Skin/Wound Assessment Wound/Incision Assessment Start: 01/23/22 20:08 Text: Status: Active Freq: Q4H Protocol: Document 01/26/22 08:00 KOJO (Rec: 01/26/22 08:26 TAMARANELL [id number]) Wound/Incision Assessment Medial Abdomen Wound Assessment Shift Assessment Wound Type Incision Dressing Status Dry & Intact Drainage Amount None General Appearance Asymptomatic,Clean/Dry Wound Photo Photo Taken No Respiratory Exam: normal breath sounds, lungs clear, No respiratory distress Cardiovascular Exam: regular rate/rhythm, normal heart sounds Gastrointestinal/Abdomen Exam: soft, No tenderness, No mass Extremity Exam: No swelling OBJECTIVE DATA Vital Signs: Vital Signs - 24 hr Temp Pulse Resp BP BP Pulse Ox 01/26/22 08:00 98.0 F 70 17 114/56 95 01/26/22 04:00 98.3 F 69 16 114/59 95 01/26/22 00:00 86 97 01/25/22 19:55 96 01/25/22 19:30 98.5 F 80 20 117/58 96 01/25/22 16:36 87 L 01/25/22 16:00 99.3 F 78 16 115/61 94 L 01/25/22 12:00 98.4 F 125 H 18 125/84 96 01/25/22 11:12 18 92 L 01/25/22 10:03 19 96 01/25/22 09:00 75 19 132/63 122/83 96 Pain Assessment - Last Documented Pain Intensity 3 Pain Scale Used 0-10 Pain Scale Intake and Output: Intake & Output 01/23/22 01/24/22 01/25/22 01/26/22 11:59 11:59 11:59 11:59 Intake Total 440 3175 2180 2971 Output Total 350 8262 234 7800 Balance 90 2125 1530 1726 Weight 55.1 kg 58.5 kg 60.7 kg 60.5 kg Lab Results: Lab Results-Last 24 Hours 01/26/22 01/26/22 Range/Units 04:15 04:15 WBC 7.2 (4.0-10.5) x10^3/uL RBC 3.16 L (4.1-5.6) x10^6/uL Hgb 9.6 L (12.5-18.0) g/dL Hct 28.2 L (42-50) % MCV 89.2 (78-100) fL MCH 30.4 (26-32) pg MCHC 34.0 (32-36) g/dL RDW 12.0 (11.5-14.0) % Plt Count 254 (150-450) x10^3/uL MPV 9.2 (7.5-11.0) fL Gran % 61.1 (36.0-66.0) % Immature Gran % (Auto) 0.3 (0.00-0.4) % Nucleat RBC Rel Count 0.0 (0.00-0.1) % Eos # (Auto) 0.31 (0-0.5) x10^3/uL Immature Gran # (Auto) 0.02 (0.00-0.03) x10^3u/L Absolute Lymphs (auto) 1.57 (1.0-4.6) x10^3/uL Absolute Monos (auto) 0.87 (0.0-1.3) x10^3/uL Absolute Nucleated RBC 0.00 (0.00-0.01) x10^3u/L Lymphocytes % 21.7 L (24.0-44.0) % Monocytes % 12.0 (0.0-12.0) % Eosinophils % 4.3 (0.00-5.0) % Basophils % 0.6 (0.0-0.4) % Absolute Granulocytes 4.41 (1.4-6.9) x10^3/uL Basophils # 0.04 (0-0.4) x10^3/uL Sodium 130 L (137-145) mmol/L Potassium 3.0 L* (3.5-5.1) mmol/L Chloride 99 (98-107) mmol/L Carbon Dioxide 27 (22-30) mmol/L Anion Gap 7.0 (5-15) MEQ/L BUN 9 (9-20) mg/dL Creatinine 0.65 L (0.66-1.25) mg/dL Estimated GFR > 60.0 ML/MIN Glucose 80 (74-106) mg/dL Calcium 7.7 L (8.4-10.2) mg/dL Magnesium 1.7 (1.6-2.3) mg/dL Total Bilirubin 0.40 (0.2-1.3) mg/dL AST 15 L (17-59) U/L ALT 9 (0-50) U/L Alkaline Phosphatase 39 (38-126) U/L Serum Total Protein 4.7 L (6.3-8.2) g/dL Albumin 2.3 L (3.5-5.0) g/dL Radiology Exams: Radiology Procedures Category Date Time Status CHEST 1 VIEW (PORTABLE) Routine Exams 01/24/22 23:12 Completed Assessment/Plan (1) Obstructed umbilical hernia Current Visit: Yes Status: Acute Assessment & Plan: s/p repair and resection, progressing well. Code(s): K42.0 - UMBILICAL HERNIA WITH OBSTRUCTION, WITHOUT GANGRENE (2) Atrial fibrillation with RVR Current Visit: Yes Status: Acute Assessment & Plan: currently sinus with po cardizem and low dose metoporolol Code(s): I48.91 - UNSPECIFIED ATRIAL FIBRILLATION (3) UTI (urinary tract infection) Current Visit: Yes Status: Acute Assessment & Plan: culture negative Code(s): N39.0 - URINARY TRACT INFECTION, SITE NOT SPECIFIED (4) Anemia Current Visit: Yes Status: Acute Assessment & Plan: currently down to lovenox 40mg daily, will reduce IVF rate and monitor closely Code(s): D64.9 - ANEMIA, UNSPECIFIED
[2022-01-26] MEDS: PROTONIX 40 MG IV IV SCH (10:18)
[2022-01-26] MEDS: Ditropan 5 MG PO SCH ×2 (10:20→21:13)
[2022-01-26] MEDS: ENOXAPARIN SODIUM SQ SCH (10:20)
[2022-01-26] MEDS: Cardizem CD PO SCH (10:20)
[2022-01-26] MEDS: Flomax 0.4 MG PO SCH (10:20)
[2022-01-26] MEDS: NEURONTIN PO SCH ×4 (10:20→21:13)
[2022-01-26] MEDS: SYNTHROID 100 MCG PO SCH (10:21)
[2022-01-26] MEDS: Proscar 5 MG PO SCH (10:21)
[2022-01-26] MEDS: NORCO 7.5/325 MG TAB PO PRN ×2 (12:57→17:38)
[2022-01-27] MEDS: NORCO 7.5/325 MG TAB PO PRN (04:53)
[2022-01-27 04:59] LABS: Absolute Neutrophil Ct (ANC) 4.69 x10^3/uL (1.4-6.9); Basophil (Absolute #) 0.03 x10^3/uL (0-0.4); Eosinophil (Absolute #) 0.38 x10^3/uL (0-0.5); Lymphocyte (Absolute #) 1.66 x10^3/uL (1.0-4.6); Lymphocytes % 21.8 % (24.0-44.0); Mean Cell Volume 90.4 fL (78-100); Mean Corpuscular Hemoglobin 29.2 pg (26-32); Mean Corpuscular Hgb Concent. 32.3 g/dL (32-36); Mean Platelet Volume 9.1 fL (7.5-11.0); Monocyte (Absolute #) 0.84 x10^3/uL (0.0-1.3); Neutrophil % 61.4 % (36.0-66.0); Platelet Count 299 x10^3/uL (150-450); Red Blood Count 3.43 x10^6/uL (4.1-5.6); White Blood Count 7.6 x10^3/uL (4.0-10.5)
[2022-01-27 05:28] LABS: ALBUMIN 2.8 g/dL (3.5-5.0); ALKALINE PHOSPHATASE 45 U/L (38-126); BLOOD UREA NITROGEN 6 mg/dL (9-20); CHLORIDE 94 mmol/L (98-107); Calcium 7.7 mg/dL (8.4-10.2); Carbon Dioxide 33 mmol/L (22-30); Creatinine 1 0.67 mg/dL (0.66-1.25); EST GLOMERULAR FILTRATION RATE > 60.0 ML/MIN; Glucose 103 mg/dL (74-106); MAGNESIUM 1.7 mg/dL (1.6-2.3); Potassium 3.1 mmol/L (3.5-5.1); SGOT/AST 18 U/L (17-59); SGPT/ALT 11 U/L (0-50); SODIUM 129 mmol/L (137-145); Total Protein 5.2 g/dL (6.3-8.2)
--- NOTE | 2022-01-27 08:56 | PCM.NOTE ---
Date and Time: 01/27/22 0854 Subjective Assessment: patient is tolerating po, heart rate has been controlled. labs are stable. surgery ok'd release yesterday, he is concerned that he is weak and unsteady on his feet, concerned he might fall Objective Exam General Appearance: no apparent distress, alert Wound Assessment: Skin/Wound Assessment Wound/Incision Assessment Start: 01/23/22 20:08 Text: Status: Active Freq: Q4H Protocol: Document 01/27/22 07:32 HAKEEM (Rec: 01/27/22 07:33 HAKEEM [id number]) Wound/Incision Assessment Medial Abdomen Wound Type Incision Dressing Status Dry & Intact Drainage Amount None General Appearance Clean/Dry Wound Photo Photo Taken No Respiratory Exam: normal breath sounds, lungs clear, No respiratory distress Cardiovascular Exam: regular rate/rhythm, normal heart sounds Gastrointestinal/Abdomen Exam: soft, normal bowel sounds, other (dressing c/d/i), No tenderness, No mass Extremity Exam: normal inspection, normal range of motion OBJECTIVE DATA Vital Signs: Vital Signs - 24 hr Temp Pulse Resp BP Pulse Ox 01/27/22 08:00 97.8 F 75 17 134/67 95 01/27/22 04:00 97.8 F 74 16 133/65 96 01/26/22 23:40 99.0 F 76 16 135/69 97 01/26/22 19:07 98.5 F 83 16 127/62 97 01/26/22 18:36 96 01/26/22 16:00 98.0 F 89 13 132/63 96 01/26/22 12:00 99.3 F 75 19 143/68 96 01/26/22 09:04 95 Pain Assessment - Last Documented Pain Intensity 0 Pain Scale Used 0-10 Pain Scale Intake and Output: Intake & Output 01/24/22 01/25/22 01/26/22 01/27/22 11:59 11:59 11:59 11:59 Intake Total 3175 2180 2971 1672 Output Total 2128 900 8276 350 Balance 2125 1530 1726 1322 Weight 58.5 kg 60.7 kg 60.5 kg Lab Results: Lab Results-Last 24 Hours 01/27/22 01/27/22 Range/Units 04:59 04:59 WBC 7.6 (4.0-10.5) x10^3/uL RBC 3.43 L (4.1-5.6) x10^6/uL Hgb 10.0 L (12.5-18.0) g/dL Hct 31.0 L (42-50) % MCV 90.4 (78-100) fL MCH 29.2 (26-32) pg MCHC 32.3 (32-36) g/dL RDW 12.0 (11.5-14.0) % Plt Count 299 (150-450) x10^3/uL MPV 9.1 (7.5-11.0) fL Gran % 61.4 (36.0-66.0) % Immature Gran % (Auto) 0.4 (0.00-0.4) % Nucleat RBC Rel Count 0.0 (0.00-0.1) % Eos # (Auto) 0.38 (0-0.5) x10^3/uL Immature Gran # (Auto) 0.03 (0.00-0.03) x10^3u/L Absolute Lymphs (auto) 1.66 (1.0-4.6) x10^3/uL Absolute Monos (auto) 0.84 (0.0-1.3) x10^3/uL Absolute Nucleated RBC 0.00 (0.00-0.01) x10^3u/L Lymphocytes % 21.8 L (24.0-44.0) % Monocytes % 11.0 (0.0-12.0) % Eosinophils % 5.0 (0.00-5.0) % Basophils % 0.4 (0.0-0.4) % Absolute Granulocytes 4.69 (1.4-6.9) x10^3/uL Basophils # 0.03 (0-0.4) x10^3/uL Sodium 129 L (137-145) mmol/L Potassium 3.1 L (3.5-5.1) mmol/L Chloride 94 L (98-107) mmol/L Carbon Dioxide 33 H (22-30) mmol/L Anion Gap 5.0 (5-15) MEQ/L BUN 6 L (9-20) mg/dL Creatinine 0.67 (0.66-1.25) mg/dL Estimated GFR > 60.0 ML/MIN Glucose 103 (74-106) mg/dL Calcium 7.7 L (8.4-10.2) mg/dL Magnesium 1.7 (1.6-2.3) mg/dL Total Bilirubin 0.30 (0.2-1.3) mg/dL AST 18 (17-59) U/L ALT 11 (0-50) U/L Alkaline Phosphatase 45 (38-126) U/L Serum Total Protein 5.2 L (6.3-8.2) g/dL Albumin 2.8 L (3.5-5.0) g/dL Multi-Disciplinary Progress Notes: Multi-Disciplinary Progress Notes 01/26/22 11:35 Case Management Note by Sandi Vizcarra S/W PATIENT- HE CONTINUES TO PLAN TO DC HOME WITH [facility]. HE AGAIN DECLINED REHAB STAY. ORDER ENTERED TO [facility]. ALSO CALLED DR. CALDWELL TO ENQUIRE IF PATIENT WILL REQUIRE [facility] ON DC THIS [facility]- MESSAGE LEFT WITH NURSE. Initialized on 01/26/22 11:35 - END OF NOTE 01/26/22 09:10 Nutrition Note by Negar Palma F/u Note: s/p surgery 01/22. Diet resumed to house regular with 50% po intake. Labs 01/26= Na 130, K+ 3.0, Cr 0.65, alb 2.3, hgb 9.6, hct 28.2. goal #1) increase po intake >50% #2) no weight loss. Will monitor and f/u prn. TDELFINO Angel Initialized on 01/26/22 09:10 - END OF NOTE Assessment/Plan (1) Obstructed umbilical hernia Current Visit: Yes Status: Acute Assessment & Plan: doing well postop, recommend rehab stay, he is from [place] and seems ok with [facility], will notify discharge planning. Code(s): K42.0 - UMBILICAL HERNIA WITH OBSTRUCTION, WITHOUT GANGRENE (2) Atrial fibrillation with RVR Current Visit: Yes Status: Acute Assessment & Plan: continue po cardizem, start eliquis 2.5mg bid Code(s): I48.91 - UNSPECIFIED ATRIAL FIBRILLATION (3) UTI (urinary tract infection) Current Visit: Yes Status: Acute Assessment & Plan: culture negative, no further tx Code(s): N39.0 - URINARY TRACT INFECTION, SITE NOT SPECIFIED (4) Anemia Current Visit: Yes Status: Acute Code(s): D64.9 - ANEMIA, UNSPECIFIED
[2022-01-27] MEDS: Lactated Ringers 1,000 ML IV SCH (08:58)
[2022-01-27] MEDS: Cardizem CD PO SCH (09:10)
[2022-01-27] MEDS: Ditropan 5 MG PO SCH (09:11)
[2022-01-27] MEDS: Flomax 0.4 MG PO SCH (09:11)
[2022-01-27] MEDS: Proscar 5 MG PO SCH (09:11)
[2022-01-27] MEDS: SYNTHROID 100 MCG PO SCH (09:11)
[2022-01-27] MEDS: NEURONTIN PO SCH (09:11)
[2022-01-27] MEDS: PROTONIX 40 MG IV IV SCH (09:11)
[2022-01-27] MEDS ORDERED: Klor Con PO SCH (10:00)
[2022-01-27] MEDS ORDERED: ELIQUIS 2.5 MG TABLET PO SCH (10:00)
[2022-01-27 12:42] VITALS: BP 119/61; PULSE 70; O2SAT 94
--- NOTE | 2022-01-27 12:53 | PCM.DS ---
Discharge Summary Date of Admission: 01/23/22 01:26 Admitting Physician: SHANE PANDYA Primary Care Provider: MICHEL PRINGLE NP Allergies Allergies No Known Drug Allergies Allergy (Verified 01/22/22 18:52) Hospital Summary - Hospital Course Hospital Course: patient was admitted with an incarcerated hernia, had repair with partial small bowel resection with Dr Meng Walter, progressed well postop other than new onset a fib with rvr, currently rate controlled with po cardizem and quite stable, he is weak and unsteady on his feet, admitting to [facility] today for rehab. - Vitals & Intake/Output Vital Signs: Vital Signs Temperature 98.7 F 01/27/22 12:00 Pulse Rate 70 01/27/22 12:00 Respiratory Rate 10 L 01/27/22 12:00 Blood Pressure 119/61 01/27/22 12:00 O2 Sat by Pulse Oximetry 94 L 01/27/22 12:00 Intake & Output: Intake & Output 01/25/22 01/26/22 01/27/22 01/28/22 11:59 11:59 11:59 11:59 Intake Total 2180 2971 1672 Output Total 650 1245 350 Balance 1530 1726 1322 Weight 60.7 kg 60.5 kg 63.5 kg - Lab Result Diagrams: 01/27/22 04:59 01/27/22 04:59 Lab Results-Last 24 Hrs: Lab Results-Last 24 Hours 01/27/22 01/27/22 Range/Units 04:59 04:59 WBC 7.6 (4.0-10.5) x10^3/uL RBC 3.43 L (4.1-5.6) x10^6/uL Hgb 10.0 L (12.5-18.0) g/dL Hct 31.0 L (42-50) % MCV 90.4 (78-100) fL MCH 29.2 (26-32) pg MCHC 32.3 (32-36) g/dL RDW 12.0 (11.5-14.0) % Plt Count 299 (150-450) x10^3/uL MPV 9.1 (7.5-11.0) fL Gran % 61.4 (36.0-66.0) % Immature Gran % (Auto) 0.4 (0.00-0.4) % Nucleat RBC Rel Count 0.0 (0.00-0.1) % Eos # (Auto) 0.38 (0-0.5) x10^3/uL Immature Gran # (Auto) 0.03 (0.00-0.03) x10^3u/L Absolute Lymphs (auto) 1.66 (1.0-4.6) x10^3/uL Absolute Monos (auto) 0.84 (0.0-1.3) x10^3/uL Absolute Nucleated RBC 0.00 (0.00-0.01) x10^3u/L Lymphocytes % 21.8 L (24.0-44.0) % Monocytes % 11.0 (0.0-12.0) % Eosinophils % 5.0 (0.00-5.0) % Basophils % 0.4 (0.0-0.4) % Absolute Granulocytes 4.69 (1.4-6.9) x10^3/uL Basophils # 0.03 (0-0.4) x10^3/uL Sodium 129 L (137-145) mmol/L Potassium 3.1 L (3.5-5.1) mmol/L Chloride 94 L (98-107) mmol/L Carbon Dioxide 33 H (22-30) mmol/L Anion Gap 5.0 (5-15) MEQ/L BUN 6 L (9-20) mg/dL Creatinine 0.67 (0.66-1.25) mg/dL Estimated GFR > 60.0 ML/MIN Glucose 103 (74-106) mg/dL Calcium 7.7 L (8.4-10.2) mg/dL Magnesium 1.7 (1.6-2.3) mg/dL Total Bilirubin 0.30 (0.2-1.3) mg/dL AST 18 (17-59) U/L ALT 11 (0-50) U/L Alkaline Phosphatase 45 (38-126) U/L Serum Total Protein 5.2 L (6.3-8.2) g/dL Albumin 2.8 L (3.5-5.0) g/dL Micro Results-Entire Visit: Microbiology 01/22/22 19:35 Blood Culture Gram Stain - Final Blood Not Reportable Blood Culture - Final NO GROWTH 01/22/22 19:25 Blood Culture Gram Stain - Final Blood Not Reportable Blood Culture - Final NO GROWTH 01/23/22 02:05 Urine Culture - Final Urine, Void <10K NORMAL SKIN ELSY PROBABLE SKIN CONTAMINANT 01/22/22 19:30 Urine Culture - Final Clean Catch Midstream <10K NORMAL SKIN ELSY PROBABLE SKIN CONTAMINANT - Procedures and Test Procedures and Tests throughout Hospitalization: Therapy Orders & Screens 01/23/22 02:37 Respiratory Therapy Assessment DAILY Comment: Diagnosis: Strangulated Umbilical Hernia 01/24/22 19:00 Incentive Spirometry TID Comment: Diagnosis: Strangulated Umbilical Hernia 01/25/22 16:36 Oxygen Nasal Cannula 2 lpm Comment: Diagnosis: Strangulated Umbilical Hernia 01/27/22 08:58 PT Eval & Treat (MD Order) ONCE Reason for Eval:: weakness, unsteady gait. recent surgery Diagnosis: Strangulated Umbilical Hernia Discharge Exam General Appearance: no apparent distress Neurologic Exam: alert, oriented x 3 Respiratory Exam: normal breath sounds, lungs clear, No respiratory distress Cardiovascular Exam: regular rate/rhythm, normal heart sounds Gastrointestinal/Abdomen Exam: soft, other (dressing c/d/i), No tenderness, No mass Extremity Exam: normal inspection, normal range of motion Skin Exam: normal color, warm, dry Final Diagnosis/Problem List - Final Discharge Diagnosis/Problem (1) Obstructed umbilical hernia Status: Acute Assessment & Plan: s/p repair Code(s): K42.0 - UMBILICAL HERNIA WITH OBSTRUCTION, WITHOUT GANGRENE (2) Atrial fibrillation with RVR Status: Acute Assessment & Plan: stable on po cardizem and low dose eliquis started today Code(s): I48.91 - UNSPECIFIED ATRIAL FIBRILLATION (3) Anemia Status: Acute Code(s): D64.9 - ANEMIA, UNSPECIFIED (4) Weakness Status: Acute Assessment & Plan: swingbed for PT Code(s): R53.1 - WEAKNESS - Discharge Disposition: Swing Bed @ [facility] Condition: Stable Prescriptions: No Action Levothyroxine Sodium 100 Mcg [Synthroid 100 Mcg] 100 mcg PO DAILY Trospium Chloride 20 mg PO BID Tamsulosin HCl 0.4 mg [Flomax 0.4 MG] 0.4 mg PO DAILY Finasteride 5 mg [Proscar 5 MG] 5 mg PO DAILY Gabapentin 300 mg PO QID Additional Instructions: REFERRAL SENT TO [facility] THEY WILL MAKE CONTACT TO COME SEE YOU. THEIR PHONE NUMBER IS [phone] Follow up with: MICHEL PRINGLE NP [Primary Care Provider] - MENG WALTER MD [ACTIVE STAFF] - HOSPITAL,'S [LOCATION] -
== END 2022-01-27 12:10 | disposition swing bed (61) | DRG 329 ==
LOC: ED 18:43 → MED SURG 01-23 01:26 → OBSVTOIN 01-23 01:26 → ICU 01-24 12:51 → MED SURG 01-25 09:25
PROVIDERS: ADMIT Family Medicine; ATTEND Family Medicine
PROC: 0WQF0ZZ Repair Abdominal Wall, Open Approach (ICD-10-PCS; principal; 2022-01-22)
PROC: 0DT80ZZ Resection of Small Intestine, Open Approach (ICD-10-PCS; 2022-01-22)
DX: K42.0 Umbilical hernia with obstruction, without gangrene (principal); K55.019 Acute (reversible) ischemia of small intestine, extent unspecified; N39.0 Urinary tract infection, site not specified; I48.20 Chronic atrial fibrillation, unspecified; D64.9 Anemia, unspecified; R53.1 Weakness; N40.0 Benign prostatic hyperplasia without lower urinary tract symptoms; Z79.899 Other long term (current) drug therapy; Z20.828 Contact with and (suspected) exposure to other viral communicable diseases
CPT/HCPCS: 0241U; 36000; 36415; 64488; 71045; 74176; 76937; 76942; 80048; 80053; 81001; 81015; 83605; 83690; 83735; 84145; 85025; 85027; 85730; 87040; 87086; 93005; 94762; 96360; 96361; 96365; 96374; 96375; 99100; 99140; 99284; J0330; J0360; J0696; J1170; J1644; J1650; J2250; J2270; J2405; J2704; J3010; L0625; A9270-GY

== ENCOUNTER 2022-01-27 12:10 | Inpatient (IN) | payer MEDICARE, OTHER ==
[2022-01-27] MEDS ORDERED: Zofran 4 MG/2 ML VIAL IVIM PRN (12:17)
[2022-01-27] MEDS ORDERED: CHLORASEPTIC SPRAY 180 ML PO PRN (12:17)
[2022-01-27] MEDS ORDERED: Aplisol ID ONE (12:17)
[2022-01-27] MEDS ORDERED: Lactated Ringers 1,000 ML IV SCH (12:17)
[2022-01-27] MEDS ORDERED: FEVERALL 650 MG RC PRN (12:17)
[2022-01-27] MEDS ORDERED: MORPHINE SULFATE 2 MG INJ IV PRN (12:17)
[2022-01-27] MEDS ORDERED: MEDICATION INTERVENTION MC SCH (13:15)
[2022-01-27] MEDS: NEURONTIN PO SCH ×3 (13:34→21:55)
[2022-01-27] MEDS: NORCO 7.5/325 MG TAB PO PRN ×2 (13:53→20:11)
[2022-01-27] MEDS: Ditropan 5 MG PO SCH (21:54)
[2022-01-27] MEDS: ELIQUIS 2.5 MG TABLET PO SCH (21:55)
[2022-01-27] MEDS: Klor Con PO SCH (21:55)
[2022-01-27] MEDS ORDERED: TROSPIUM CHLORIDE 20 MG PO SCH (22:00)
[2022-01-28 05:18] LABS: Absolute Neutrophil Ct (ANC) 5.16 x10^3/uL (1.4-6.9); Basophil (Absolute #) 0.06 x10^3/uL (0-0.4); Eosinophil % 5.8 % (0.00-5.0); Eosinophil (Absolute #) 0.47 x10^3/uL (0-0.5); Hematocrit 30.1 % (42-50); Hemoglobin 10.2 g/dL (12.5-18.0); Lymphocyte (Absolute #) 1.32 x10^3/uL (1.0-4.6); Lymphocytes % 16.4 % (24.0-44.0); Mean Cell Volume 91.5 fL (78-100); Mean Corpuscular Hgb Concent. 33.9 g/dL (32-36); Mean Platelet Volume 9.6 fL (7.5-11.0); Monocytes % 12.4 % (0.0-12.0); Neutrophil % 64.1 % (36.0-66.0); Platelet Count 344 x10^3/uL (150-450); Red Blood Count 3.29 x10^6/uL (4.1-5.6); White Blood Count 8.1 x10^3/uL (4.0-10.5)
[2022-01-28 06:10] LABS: ALBUMIN 2.6 g/dL (3.5-5.0); ALKALINE PHOSPHATASE 46 U/L (38-126); ANION GAP 4.5 MEQ/L (5-15); BLOOD UREA NITROGEN 4 mg/dL (9-20); CHLORIDE 97 mmol/L (98-107); Calcium 8.1 mg/dL (8.4-10.2); Carbon Dioxide 32 mmol/L (22-30); Creatinine 1 0.73 mg/dL (0.66-1.25); EST GLOMERULAR FILTRATION RATE > 60.0 ML/MIN; Glucose 96 mg/dL (74-106); MAGNESIUM 1.6 mg/dL (1.6-2.3); Potassium 3.5 mmol/L (3.5-5.1); SGOT/AST 19 U/L (17-59); SGPT/ALT 12 U/L (0-50); SODIUM 130 mmol/L (137-145); Total Protein 4.9 g/dL (6.3-8.2)
[2022-01-28] MEDS: PROTONIX 40 MG IV IV SCH (08:10)
[2022-01-28] MEDS: NORCO 7.5/325 MG TAB PO PRN ×2 (08:10→18:46)
[2022-01-28] MEDS: ELIQUIS 2.5 MG TABLET PO SCH ×2 (08:11→22:07)
[2022-01-28] MEDS: SYNTHROID 100 MCG PO SCH (08:11)
[2022-01-28] MEDS: Flomax 0.4 MG PO SCH (08:11)
[2022-01-28] MEDS: Cardizem CD PO SCH (08:11)
[2022-01-28] MEDS: NEURONTIN PO SCH ×4 (08:11→22:07)
[2022-01-28] MEDS: Ditropan 5 MG PO SCH ×2 (08:11→22:07)
[2022-01-28] MEDS: Proscar 5 MG PO SCH (08:13)
[2022-01-28] MEDS: Klor Con PO SCH ×2 (08:13→22:07)
[2022-01-28 20:52] LABS: 027 TOX PROD PRESUMPTIVE NEGATIVE (NEGATIVE); TOXIGENIC C. DIFF ORG NEGATIVE (NEGATIVE)
[2022-01-29] MEDS: NORCO 7.5/325 MG TAB PO PRN ×3 (01:58→21:39)
[2022-01-29 05:21] LABS: Absolute Neutrophil Ct (ANC) 5.44 x10^3/uL (1.4-6.9); Basophil (Absolute #) 0.03 x10^3/uL (0-0.4); Eosinophil % 5.3 % (0.00-5.0); Eosinophil (Absolute #) 0.46 x10^3/uL (0-0.5); Hematocrit 28.7 % (42-50); Hemoglobin 9.4 g/dL (12.5-18.0); Lymphocyte (Absolute #) 1.69 x10^3/uL (1.0-4.6); Lymphocytes % 19.4 % (24.0-44.0); Mean Cell Volume 91.1 fL (78-100); Mean Corpuscular Hemoglobin 29.8 pg (26-32); Mean Corpuscular Hgb Concent. 32.8 g/dL (32-36); Mean Platelet Volume 9.3 fL (7.5-11.0); Monocyte (Absolute #) 1.08 x10^3/uL (0.0-1.3); Monocytes % 12.4 % (0.0-12.0); Neutrophil % 62.3 % (36.0-66.0); Platelet Count 327 x10^3/uL (150-450); Red Blood Count 3.15 x10^6/uL (4.1-5.6); Red Cell Distribution Width 12.2 % (11.5-14.0); White Blood Count 8.7 x10^3/uL (4.0-10.5)
--- NOTE | 2022-01-29 08:46 | PCM.NOTE ---
Date and Time: 01/29/22 0844 Subjective Assessment: appetite is improved, pain is doing well and he is ambulating with a cane. he is feeling much better overall and encouraged about his progress Objective Exam General Appearance: no apparent distress Neurologic Exam: alert, oriented x 3 Respiratory Exam: normal breath sounds, lungs clear, No respiratory distress Cardiovascular Exam: regular rate/rhythm, normal heart sounds Gastrointestinal/Abdomen Exam: soft, No tenderness, No mass OBJECTIVE DATA Vital Signs: Vital Signs - 24 hr Temp Pulse Resp BP Pulse Ox 01/29/22 07:20 98.0 F 71 16 106/58 93 L 01/28/22 20:00 98.9 F 81 16 115/57 93 L 01/28/22 18:52 91 L Pain Assessment - Last Documented Pain Intensity 0 Pain Scale Used 0-10 Pain Scale Intake and Output: Intake & Output 01/26/22 01/27/22 01/28/22 01/29/22 11:59 11:59 11:59 11:59 Intake Total 960 Output Total 1050 250 Balance -90 -250 Weight 63.5 kg Lab Results: Lab Results-Last 24 Hours 01/28/22 01/28/22 01/29/22 Range/Units 13:00 13:00 05:14 WBC 8.7 (4.0-10.5) x10^3/uL RBC 3.15 L (4.1-5.6) x10^6/uL Hgb 9.4 L (12.5-18.0) g/dL Hct 28.7 L (42-50) % MCV 91.1 (78-100) fL MCH 29.8 (26-32) pg MCHC 32.8 (32-36) g/dL RDW 12.2 (11.5-14.0) % Plt Count 327 (150-450) x10^3/uL MPV 9.3 (7.5-11.0) fL Gran % 62.3 (36.0-66.0) % Immature Gran % (Auto) 0.3 (0.00-0.4) % Nucleat RBC Rel Count 0.0 (0.00-0.1) % Eos # (Auto) 0.46 (0-0.5) x10^3/uL Immature Gran # (Auto) 0.03 (0.00-0.03) x10^3u/L Absolute Lymphs (auto) 1.69 (1.0-4.6) x10^3/uL Absolute Monos (auto) 1.08 (0.0-1.3) x10^3/uL Absolute Nucleated RBC 0.00 (0.00-0.01) x10^3u/L Lymphocytes % 19.4 L (24.0-44.0) % Monocytes % 12.4 H (0.0-12.0) % Eosinophils % 5.3 H (0.00-5.0) % Basophils % 0.3 (0.0-0.4) % Absolute Granulocytes 5.44 (1.4-6.9) x10^3/uL Basophils # 0.03 (0-0.4) x10^3/uL Stool Occult Blood POSITIVE A (NEGATIVE) C. difficile Screen NEGATIVE (NEGATIVE) C.difficile [id number] PRESUMPTIVE NEGATIVE (NEGATIVE) Multi-Disciplinary Progress Notes: Multi-Disciplinary Progress Notes 01/28/22 15:14 Occupational Therapy Note by Howard(Tutu#[id number])Maya MR. AYON WAS FOUND ALREADY BACK TO BED AND HE REQUESTED TO DO HIS OT WHILE STAYING IN BED IF POSSIBLE. HE WAS GIVEN 3# RESISTANCE ON DOWEL DIONTE TO PERFORM BUE STRENGTHENING FOLLOWED BY 2# WEIGHT TO EACH HAND TO PERFORM MORE DISTAL STRENGTHENING WITH ELBOW, WRIST, AND HAND. HE REPORTS HE HAS EXERTED MUCH ENERGY WITH GOING TO BATHROOM FREQUENTLY HAVING LOOSE BM AND HAS HAD TO CHANGE CLOTHES, ETC AND IS WORN OUT. OT WILL CONT TO TX 5X/WK TO INCREASE HIS OVERALL INDEPENDENCE WITH ADLS, MOBILITY, STRENGTH, AND ENDURANCE. Initialized on 01/28/22 15:14 - END OF NOTE 01/28/22 15:11 OT Plan of Care Note by Howard(Tutu#[id number])Maya OT Eval OT Eval and Treat MD Order Start: 01/27/22 12:17 Freq: ONCE Status: Complete Protocol: Created 01/27/22 12:18 HAKEEM (Rec: 01/27/22 12:18 HAKEEM [id number]) Document 01/27/22 16:50 AL (Rec: 01/27/22 17:05 AL [id number]) OT Assessment Pertinent Past Medical History MR. AYON IS AND LIVES AT HOME ALONE. HE HAS SON AND DAUGHTER CLOSE BY THAT CAN PROVIDE ASSIST NEEDED. HE PRESENTED TO ED ON 01/22 WITH 10 /10 PAIN AND LATER THAT SAME DAY HAD EMERGENCY SURGERY ( STRANGULATED UMBILICAL HERNIA REPAIR AND A SMALL BOWEL RESECTION AND ANASTOMMY). PRIOR TO ADMISSION HE WAS INDEPENDENT WITH ALL ADLS/ IADLS, +DRIVING AND +COMMUNITY MOBILITY. USED [employer] AND HAS A RAMP TO ENTER HOME. Equipment at Home Prior to Admission Walker,Cane Comment HAS ROLLING WALKER, SHOWER SEAT, HHSH, HIGH RISE TOILET SEAT, COLOR TELEVISION CONSOLE MONITOR, AND RAMP TO ENTER Date 01/27/22 Feeding WFL Grooming WFL Bathing Impaired Comment CURRENTLY REQ MOD ASSIST; INDEPENDENT PLOF Dressing Impaired Comment CURRENTLY MOD ASSIST (MOSTLY WITH LE); INDEPENDENT PLOF Toileting Impaired Comment MIN ASSIST WITH CLOTHING MANAGEMENT AND TOILET HYGEINE IADLS (If indicated) Homemaking,etc Impaired Comment WAS INDEPENDENT PLOF Bed Mobility Impaired Comment SBA-CGA AND WITH MUCH PAIN TO ABDOMINAL INCISION SITE AREA Toilet Transfers Impaired Functional Transfers Impaired Comment CGA-MIN ASSIST AND VERBAL CUES FOR PROPER TECHNIQUES (I.E. USING HIS HANDS FOR SIT TO STAND, ETC) Functional Endurance HE REPORTS HE FEELS TO BE AT 40% ENDURANCE LEVEL COMPARED TO BEING AT 100% PRIOR TO ADMISSION. HE FEELS HE NEEDS TO BE AT LEAST 70% ENDURANCE LEVEL TO RETURN TO HOME ALONE Cognition WFL Adaptive Equipment/Durable Medical WILL RECOMMEND NECESSARY Equipment needed/recommended Functional Problem List DECREASED OVERALL ENDURANCE AND STRENGHT, DECREASED MOBILITY, AND DECREASED INDEPENDENCE WITH ADLS Pain Limitations ABDOMINAL SURGERY INCISION SIGHT AT A 6-7/10CURRENTLY. HE ASKED FOR AND RECEIVED NORCO PILL AT END OF SESSION FROM HIS NURSE AT [facility]OX. 1355 . SHE REPORTED TO OTR THAT HE HADN'T REQUESTED A PAIN PILL SINCE APPROX. 6 AM. Therapuetic Interventions THERAPEUTIC EXERCISES AND ACTIVITIES, ADL RETRAINING, FUNCTIONAL MOBILITY, A.E./DME TRAINING Functional Goals of Treatment 1) MR. AYON WILL DEMO. INCREASED ENDURANCE TO SELF REPORTED AT 70% PLOF TO RETURN TO HOME AT PLOF. 2) MR. AYON WILL BE INDEPENDENT AFTER SET-UP WITH ALL BASIC BATHING AND DRESSING . 3) MR. AYON WILL BE MODIFIED INDEPENDENT AND SAFE WITH ALL BASIC TRANSFERS WITH USE OF ASSISTIVE DEVICE NEEDED. OT Inpatient Plan of Care Date of Evaluation 01/27/22 Treatment Diagnosis DECONDITIONING D/T STRANGULATED UMBILICAL HERNIA Precaution/Orders as written OT EVAL AND TX Frequency/Duration 5X/WK Patient assessed for Rehab Services Yes Was notification received of nursing Yes assessment trigger Chart screen completed Yes Are referral orders warranted for Yes evaluation Is an intervention justified at this Yes time Initialized on 01/28/22 15:11 - END OF NOTE 01/28/22 11:47 Case Management Note by Sandi Vizcarra PATIENT PLANS TO RETURN HOME WITH [facility] AT TIME OF DC. PATIENT HAS WALKER- FAMILY IS BRINGING IN FOR HIM TO USE WHILE HE IS HERE. DAUGHTER INVOLVED AND WILL CHECK IN ON PATIENT AT TIME OF DC. SHE IS ALSO TRYING TO GET PATIENT INTO [facility]. Initialized on 01/28/22 11:47 - END OF NOTE Assessment/Plan (1) Heme + stool Current Visit: Yes Status: Acute Assessment & Plan: d/c eliquis, patient aware he is at risk if he goes back to a fib of tia or stroke but this is outweighed with dropping hgb and heme + stool with recent surgery. continue IV protonix (2) Atrial fibrillation with RVR Current Visit: No Status: Acute Assessment & Plan: currently converted to sinus and rate is doing well, continue po cardizem at this time Code(s): I48.91 - UNSPECIFIED ATRIAL FIBRILLATION (3) Obstructed umbilical hernia Current Visit: No Status: Acute Code(s): K42.0 - UMBILICAL HERNIA WITH OBSTRUCTION, WITHOUT GANGRENE
[2022-01-29] MEDS: Cardizem CD PO SCH (09:37)
[2022-01-29] MEDS: Proscar 5 MG PO SCH (09:37)
[2022-01-29] MEDS: SYNTHROID 100 MCG PO SCH (09:37)
[2022-01-29] MEDS: NEURONTIN PO SCH ×4 (09:37→21:40)
[2022-01-29] MEDS: Flomax 0.4 MG PO SCH (09:37)
[2022-01-29] MEDS: Ditropan 5 MG PO SCH ×2 (09:37→21:39)
[2022-01-29] MEDS: PROTONIX 40 MG IV IV SCH (09:37)
[2022-01-29] MEDS: Klor Con PO SCH ×2 (09:37→21:40)
[2022-01-30 05:21] LABS: Absolute Neutrophil Ct (ANC) 5.68 x10^3/uL (1.4-6.9); Basophil (Absolute #) 0.04 x10^3/uL (0-0.4); Eosinophil % 5.4 % (0.00-5.0); Hematocrit 30.4 % (42-50); Hemoglobin 9.7 g/dL (12.5-18.0); Lymphocyte (Absolute #) 1.76 x10^3/uL (1.0-4.6); Lymphocytes % 19.1 % (24.0-44.0); Mean Cell Volume 91.8 fL (78-100); Mean Corpuscular Hemoglobin 29.3 pg (26-32); Mean Corpuscular Hgb Concent. 31.9 g/dL (32-36); Mean Platelet Volume 9.1 fL (7.5-11.0); Monocyte (Absolute #) 1.16 x10^3/uL (0.0-1.3); Monocytes % 12.6 % (0.0-12.0); Neutrophil % 61.6 % (36.0-66.0); Platelet Count 345 x10^3/uL (150-450); Red Blood Count 3.31 x10^6/uL (4.1-5.6); Red Cell Distribution Width 12.4 % (11.5-14.0); White Blood Count 9.2 x10^3/uL (4.0-10.5)
[2022-01-30 05:46] LABS: ANION GAP 5.9 MEQ/L (5-15); BLOOD UREA NITROGEN 4 mg/dL (9-20); CHLORIDE 100 mmol/L (98-107); Carbon Dioxide 30 mmol/L (22-30); Creatinine 1 0.73 mg/dL (0.66-1.25); EST GLOMERULAR FILTRATION RATE > 60.0 ML/MIN; Glucose 103 mg/dL (74-106); Potassium 3.6 mmol/L (3.5-5.1); SODIUM 133 mmol/L (137-145)
--- NOTE | 2022-01-30 08:29 | PCM.NOTE ---
Date and Time: 01/30/22827 Subjective Assessment: patient c/o feeling nauseated today, no significant pain. doing well otherwise Objective Exam General Appearance: no apparent distress Neurologic Exam: alert, oriented x 3 Respiratory Exam: normal breath sounds, lungs clear, No respiratory distress Cardiovascular Exam: regular rate/rhythm, normal heart sounds Gastrointestinal/Abdomen Exam: soft, No tenderness, No mass Extremity Exam: normal inspection, normal range of motion OBJECTIVE DATA Vital Signs: Vital Signs - 24 hr Temp Pulse Resp BP Pulse Ox 01/30/22 07:59 99.1 F 74 17 126/65 92 L 01/29/22 21:44 99.3 F 01/29/22 20:00 98.2 F 82 16 123/59 93 L 01/29/22 19:47 91 L 01/29/22 17:43 93 L Pain Assessment - Last Documented Pain Intensity 6 Pain Scale Used 0-10 Pain Scale Intake and Output: Intake & Output 01/27/22 01/28/22 01/29/22 01/30/22 11:59 11:59 11:59 11:59 Intake Total 960 420 Output Total 1050 250 Balance -90 -250 420 Weight 63.5 kg Lab Results: Lab Results-Last 24 Hours 01/30/22 01/30/22 Range/Units 05:27 05:27 WBC 9.2 (4.0-10.5) x10^3/uL RBC 3.31 L (4.1-5.6) x10^6/uL Hgb 9.7 L (12.5-18.0) g/dL Hct 30.4 L (42-50) % MCV 91.8 (78-100) fL MCH 29.3 (26-32) pg MCHC 31.9 L (32-36) g/dL RDW 12.4 (11.5-14.0) % Plt Count 345 (150-450) x10^3/uL MPV 9.1 (7.5-11.0) fL Gran % 61.6 (36.0-66.0) % Immature Gran % (Auto) 0.9 H (0.00-0.4) % Nucleat RBC Rel Count 0.0 (0.00-0.1) % Eos # (Auto) 0.50 (0-0.5) x10^3/uL Immature Gran # (Auto) 0.08 H (0.00-0.03) x10^3u/L Absolute Lymphs (auto) 1.76 (1.0-4.6) x10^3/uL Absolute Monos (auto) 1.16 (0.0-1.3) x10^3/uL Absolute Nucleated RBC 0.00 (0.00-0.01) x10^3u/L Lymphocytes % 19.1 L (24.0-44.0) % Monocytes % 12.6 H (0.0-12.0) % Eosinophils % 5.4 H (0.00-5.0) % Basophils % 0.4 (0.0-0.4) % Absolute Granulocytes 5.68 (1.4-6.9) x10^3/uL Basophils # 0.04 (0-0.4) x10^3/uL Sodium 133 L (137-145) mmol/L Potassium 3.6 (3.5-5.1) mmol/L Chloride 100 (98-107) mmol/L Carbon Dioxide 30 (22-30) mmol/L Anion Gap 5.9 (5-15) MEQ/L BUN 4 L (9-20) mg/dL Creatinine 0.73 (0.66-1.25) mg/dL Estimated GFR > 60.0 ML/MIN Glucose 103 (74-106) mg/dL Calcium 8.0 L (8.4-10.2) mg/dL Multi-Disciplinary Progress Notes: Multi-Disciplinary Progress Notes 01/29/22 16:47 Occupational Therapy Note by Howard(L#[id number])Maya MR. AYON REQ. SBA TO AMBULATE WITH ROLLING WALKER TO BATHROOM. HE WAS ABLE TO PERFORM ALL TOILET HYGEINE AND CLOTHING MANAGMENT (MANAGING HIS DEPENDS) WITH SBA WELL. HE STOOD AT SINK TO WASH HANDS AND FACE FOLLOWED BY PERFOMING BUE STRENGTHENING EXERCISES WHILE SITTING ON SIDE OF BED. HE REQ. VERBAL CUES FOR DEEP BREATHING TECHNIQUES AND TO SLOW DOWN HIS EXERCISES TO GET THE MOST BENEFIT. HE DID DEMO. LOSS OF BALANCE WHEN STANDING TO MAUDE HIS ABDOMINAL BINDER AND FELL BACKWARDS ONTO HIS BED HE WAS STANDING AT SIDE OF BED WITH BOTH HANDS OCCUPIED TRYING TO FASTEN (WITH OTR HELPING) BINDER. OTHERWISE HE DEMO. WFL BALANCE DURING ALL IN ROOM MOBILITY AND TRANSFERS WITH WALKER. HE VERBALIZED AND DEMO. GOOD UNDERSTANDING OF ALL OT EDUCATION THIS DATE. Initialized on 01/29/22 16:47 - END OF NOTE Assessment/Plan (1) Heme + stool Current Visit: Yes Status: Acute Assessment & Plan: h/h stable, off eliquis and getting IV protonix daily. no changes (2) Atrial fibrillation with RVR Current Visit: No Status: Acute Assessment & Plan: continue po cardizem, resolved at this time Code(s): I48.91 - UNSPECIFIED ATRIAL FIBRILLATION (3) Obstructed umbilical hernia Current Visit: No Status: Acute Assessment & Plan: contine swingbed for therapy and strengthening Code(s): K42.0 - UMBILICAL HERNIA WITH OBSTRUCTION, WITHOUT GANGRENE
[2022-01-30] MEDS: NORCO 7.5/325 MG TAB PO PRN ×2 (08:42→12:49)
[2022-01-30] MEDS: Proscar 5 MG PO SCH (10:43)
[2022-01-30] MEDS: Cardizem CD PO SCH (10:43)
[2022-01-30] MEDS: Flomax 0.4 MG PO SCH (10:43)
[2022-01-30] MEDS: NEURONTIN PO SCH ×4 (10:43→22:15)
[2022-01-30] MEDS: Ditropan 5 MG PO SCH ×2 (10:43→22:15)
[2022-01-30] MEDS: PROTONIX 40 MG IV IV SCH (10:43)
[2022-01-30] MEDS: Klor Con PO SCH ×2 (10:43→22:15)
[2022-01-30] MEDS: SYNTHROID 100 MCG PO SCH (10:43)
[2022-01-31] MEDS: SYNTHROID 100 MCG PO SCH (08:40)
[2022-01-31] MEDS: NEURONTIN PO SCH ×4 (08:40→22:03)
[2022-01-31] MEDS: Ditropan 5 MG PO SCH ×2 (08:40→22:03)
[2022-01-31] MEDS: Klor Con PO SCH ×2 (08:40→22:03)
[2022-01-31] MEDS: PROTONIX 40 MG IV IV SCH (08:40)
[2022-01-31] MEDS: Flomax 0.4 MG PO SCH (08:40)
[2022-01-31] MEDS: Cardizem CD PO SCH (08:40)
[2022-01-31] MEDS: Proscar 5 MG PO SCH (08:41)
[2022-01-31] MEDS: TYLENOL 325 MG PO PRN (08:46)
[2022-01-31] MEDS: NORCO 5/325 MG PO PRN ×2 (11:01→22:03)
[2022-01-31] MEDS: IMODIUM 2 MG PO PRN ×2 (11:01→13:28)
[2022-02-01] MEDS: NORCO 5/325 MG PO PRN ×2 (02:03→19:27)
[2022-02-01] MEDS: NEURONTIN PO SCH ×4 (08:45→21:15)
[2022-02-01] MEDS: Flomax 0.4 MG PO SCH (08:45)
[2022-02-01] MEDS: Protonix 40MG Tablet PO SCH (08:45)
[2022-02-01] MEDS: Ditropan 5 MG PO SCH ×2 (08:45→21:15)
[2022-02-01] MEDS: Cardizem CD PO SCH (08:45)
[2022-02-01] MEDS: Klor Con PO SCH ×2 (08:45→21:15)
[2022-02-01] MEDS: SYNTHROID 100 MCG PO SCH (08:45)
[2022-02-01] MEDS: Proscar 5 MG PO SCH (08:46)
[2022-02-01] MEDS ORDERED: ZOFRAN ODT 4 MG PO PRN (19:43)
[2022-02-01 20:39] VITALS: PULSE 73; O2SAT 92
[2022-02-01] MEDS: TYLENOL 325 MG PO PRN (22:43)
[2022-02-02 04:56] LABS: Absolute Neutrophil Ct (ANC) 4.49 x10^3/uL (1.4-6.9); Basophil (Absolute #) 0.04 x10^3/uL (0-0.4); Eosinophil % 4.2 % (0.00-5.0); Eosinophil (Absolute #) 0.33 x10^3/uL (0-0.5); Hematocrit 31.2 % (42-50); Hemoglobin 9.8 g/dL (12.5-18.0); Lymphocyte (Absolute #) 1.98 x10^3/uL (1.0-4.6); Mean Cell Volume 94.8 fL (78-100); Mean Corpuscular Hemoglobin 29.8 pg (26-32); Mean Corpuscular Hgb Concent. 31.4 g/dL (32-36); Mean Platelet Volume 8.8 fL (7.5-11.0); Monocyte (Absolute #) 1.03 x10^3/uL (0.0-1.3); Neutrophil % 56.7 % (36.0-66.0); Platelet Count 401 x10^3/uL (150-450); Red Blood Count 3.29 x10^6/uL (4.1-5.6); Red Cell Distribution Width 13.1 % (11.5-14.0); White Blood Count 7.9 x10^3/uL (4.0-10.5)
[2022-02-02 05:29] LABS: ALKALINE PHOSPHATASE 61 U/L (38-126); ANION GAP 10.1 MEQ/L (5-15); BLOOD UREA NITROGEN 6 mg/dL (9-20); CHLORIDE 103 mmol/L (98-107); Calcium 8.4 mg/dL (8.4-10.2); Carbon Dioxide 30 mmol/L (22-30); Creatinine 1 0.84 mg/dL (0.66-1.25); EST GLOMERULAR FILTRATION RATE > 60.0 ML/MIN; Glucose 97 mg/dL (74-106); SGOT/AST 22 U/L (17-59); SGPT/ALT 20 U/L (0-50); SODIUM 137 mmol/L (137-145); Total Protein 5.8 g/dL (6.3-8.2)
[2022-02-02] MEDS: SYNTHROID 100 MCG PO SCH (08:02)
[2022-02-02] MEDS: Klor Con PO SCH (08:02)
[2022-02-02] MEDS: Ditropan 5 MG PO SCH (08:02)
[2022-02-02] MEDS: Protonix 40MG Tablet PO SCH (08:03)
[2022-02-02] MEDS: Flomax 0.4 MG PO SCH (08:03)
[2022-02-02] MEDS: Proscar 5 MG PO SCH (08:03)
[2022-02-02] MEDS: NEURONTIN PO SCH (08:03)
[2022-02-02] MEDS: Cardizem CD PO SCH (08:03)
--- NOTE | 2022-02-02 08:11 | PCM.DS ---
Discharge Summary Date of Admission: 01/27/22 12:10 Admitting Physician: SHANE PANDYA Primary Care Provider: MICHEL PRINGLE NP Allergies Allergies No Known Drug Allergies Allergy (Verified 01/22/22 18:52) Hospital Summary - Hospital Course Hospital Course: patient admitted with abdominal pain, had repair of incarberated hernia with partial small bowel resection. he was admitted to a swingbed, had a run of a fib after surgery but has resolved, he is on po cardizem. had a heme+ stool so anticoagulation was stopped, his h/h has been stable for several days and actually improving now. he is tolerating po intake with regular diet, bowels are moving and he feels confident to return home with home healthcare at this time. - Vitals & Intake/Output Vital Signs: Vital Signs Temperature 99.0 F 02/01/22 20:00 Pulse Rate 73 02/01/22 20:00 Respiratory Rate 18 02/01/22 20:00 Blood Pressure 120/66 02/01/22 20:00 O2 Sat by Pulse Oximetry 92 L 02/01/22 20:00 Intake & Output: Intake & Output 01/30/22 01/31/22 02/01/22 02/02/22 11:59 11:59 11:59 11:59 Intake Total 420 580 730 400 Balance 420 580 730 400 Weight 63.5 kg - Lab Result Diagrams: 02/02/22 04:25 02/02/22 04:25 Lab Results-Last 24 Hrs: Lab Results-Last 24 Hours 02/02/22 02/02/22 Range/Units 04:25 04:25 WBC 7.9 (4.0-10.5) x10^3/uL RBC 3.29 L (4.1-5.6) x10^6/uL Hgb 9.8 L (12.5-18.0) g/dL Hct 31.2 L (42-50) % MCV 94.8 (78-100) fL MCH 29.8 (26-32) pg MCHC 31.4 L (32-36) g/dL RDW 13.1 (11.5-14.0) % Plt Count 401 (150-450) x10^3/uL MPV 8.8 (7.5-11.0) fL Gran % 56.7 (36.0-66.0) % Immature Gran % (Auto) 0.6 H (0.00-0.4) % Nucleat RBC Rel Count 0.0 (0.00-0.1) % Eos # (Auto) 0.33 (0-0.5) x10^3/uL Immature Gran # (Auto) 0.05 H (0.00-0.03) x10^3u/L Absolute Lymphs (auto) 1.98 (1.0-4.6) x10^3/uL Absolute Monos (auto) 1.03 (0.0-1.3) x10^3/uL Absolute Nucleated RBC 0.00 (0.00-0.01) x10^3u/L Lymphocytes % 25.0 (24.0-44.0) % Monocytes % 13.0 H (0.0-12.0) % Eosinophils % 4.2 (0.00-5.0) % Basophils % 0.5 (0.0-0.4) % Absolute Granulocytes 4.49 (1.4-6.9) x10^3/uL Basophils # 0.04 (0-0.4) x10^3/uL Sodium 137 (137-145) mmol/L Potassium 5.0 (3.5-5.1) mmol/L Chloride 103 (98-107) mmol/L Carbon Dioxide 30 (22-30) mmol/L Anion Gap 10.1 (5-15) MEQ/L BUN 6 L (9-20) mg/dL Creatinine 0.84 (0.66-1.25) mg/dL Estimated GFR > 60.0 ML/MIN Glucose 97 (74-106) mg/dL Calcium 8.4 (8.4-10.2) mg/dL Total Bilirubin 0.20 (0.2-1.3) mg/dL AST 22 (17-59) U/L ALT 20 (0-50) U/L Alkaline Phosphatase 61 (38-126) U/L Serum Total Protein 5.8 L (6.3-8.2) g/dL Albumin 3.0 L (3.5-5.0) g/dL - Procedures and Test Procedures and Tests throughout Hospitalization: Therapy Orders & Screens 01/27/22 12:17 OT Eval and Treat ( Order) ONCE Comment: Consulting Provider: Physician Instructions: Reason For Exam: Diagnosis: Strangulated Umbilical Hernia PT Eval & Treat (MD Order) ONCE Reason for Eval:: DECONDITIONING R/T S/P HERNIA REPAIR AND BOWEL RESECTION Diagnosis: Strangulated Umbilical Hernia 01/27/22 14:45 PT Clarification Order ROUTINE Comment: Physician Instructions: Reason For Exam: PT Clarification: P.T. TO RX 5X/WK TO ADDRESS FUNCTIONAL MOBILITY AND GAIT TRAINING, THER EX, BALANCE AND ENDURANCE ACTIVITIES TO MAXIMIZE FUNCTIONAL POTENTIAL FOR SAFE RETURN HOME. 01/27/22 15:24 Oxygen NASAL CANNULA 2 lpm Comment: Diagnosis: DECONDITIONING R/T SURGERY 01/28/22 15:09 OT Clarification Order ROUTINE Comment: Physician Instructions: Reason For Exam: OT Clarification: OT TO TX 5X/WK TO ADDRESS ADL AND FUNCTIONAL MOBILITY RETRAINING, THERAPUETIC EXERCISES, A.E./DME TRAINING, AND OVERALL SAFETY FOR HIM TO RETURN TO HOME ALONE AT [facility]. Discharge Exam General Appearance: no apparent distress Neurologic Exam: alert, oriented x 3 Respiratory Exam: normal breath sounds, lungs clear, No respiratory distress Cardiovascular Exam: regular rate/rhythm, normal heart sounds Gastrointestinal/Abdomen Exam: soft, normal bowel sounds, other (conner intact, incision clean, dry, intact and well approximated), No tenderness Extremity Exam: normal inspection, normal range of motion Skin Exam: normal color, warm, dry Final Diagnosis/Problem List - Final Discharge Diagnosis/Problem (1) Obstructed umbilical hernia Current Visit: No Status: Acute Assessment & Plan: s/p repair Code(s): K42.0 - UMBILICAL HERNIA WITH OBSTRUCTION, WITHOUT GANGRENE (2) Heme + stool Current Visit: Yes Status: Acute (3) Atrial fibrillation with RVR Current Visit: No Status: Acute Assessment & Plan: resolved, continue po cardizem at home Code(s): I48.91 - UNSPECIFIED ATRIAL FIBRILLATION - Discharge Disposition: Home, Self-Care Condition: Stable Prescriptions: New Diltiazem HCl Cd [Cardizem CD ] 1 cap PO DAILY #30 cap PANTOPRAZOLE 40 mg Tablet [Protonix 40MG Tablet] 40 mg PO DAILY #30 tab Continue Levothyroxine Sodium 100 Mcg [Synthroid 100 Mcg] 100 mcg PO DAILY Trospium Chloride 20 mg PO BID Tamsulosin HCl 0.4 mg [Flomax 0.4 MG] 0.4 mg PO DAILY Finasteride 5 mg [Proscar 5 MG] 5 mg PO DAILY Gabapentin 300 mg PO QID Follow up with: MICHEL PRINGLE NP [Primary Care Provider] - MENG JARAMILLO MD [ACTIVE STAFF] - 2 weeks
[2022-02-02 09:06] VITALS: BP 130/65
== END 2022-02-02 09:35 | disposition home health service (06) | DRG 394 ==
LOC: MED SURG 12:10
PROVIDERS: ADMIT Family Medicine; ATTEND Family Medicine
DX: K42.0 Umbilical hernia with obstruction, without gangrene (principal); K55.9 Vascular disorder of intestine, unspecified; I48.91 Unspecified atrial fibrillation; Z79.01 Long term (current) use of anticoagulants; Z79.899 Other long term (current) drug therapy; Z20.828 Contact with and (suspected) exposure to other viral communicable diseases
CPT/HCPCS: 36415; 80048; 80053; 82274; 83735; 85025; 87493; 94760; J2405; Q0162; 97110-GP; A9270-GY; G0328

== ENCOUNTER 2022-08-15 09:53 | Emergency (ER) | payer OTHER ==
--- NOTE | 2022-08-15 09:56 | ERPHSYRPT ---
- History of Present Illness Time Seen by Provider: 08/15/22 09:55 Historian: patient Exam Limitations: no limitations Physician History: This is an 82-year-old white male patient who receives his medical care from the [facility] and presents with nausea and vomiting episodes that began last evening and an associated cough. Patient denies fever. He denies chest pain. He denies shortness of breath. He denies abdominal pain. He has no known exposures to individuals with similar symptoms or diagnoses of flus. Patient has a history of bronchitis, depression, hypothyroidism, prostate and bladder issues, and atrial fibrillation. Timing/Duration: yesterday Activities at Onset: none Abdominal Pain Onset Location: other (No abdominal pain) Severity of Pain-Max: none Severity of Pain-Current: none Modifying Factors: Improves With: coughing, vomiting Associated Symptoms: loss of appetite, nausea, vomiting, No chest pain, No fever/chills, No shortness of breath Previous symptoms: no prior history, no recent treatment Allergies/Adverse Reactions: No Known Drug Allergies Allergy (Verified 08/15/22 09:55) Home Medications: Levothyroxine Sodium 100 Mcg [Synthroid 100 Mcg] 100 mcg PO DAILY 11/23/21 [History] Trospium Chloride 20 mg PO BID 11/23/21 [History] Finasteride 5 mg [Proscar 5 MG] 5 mg PO DAILY 01/22/22 [History] Gabapentin 300 mg PO QID 01/22/22 [History] Tamsulosin HCl 0.4 mg [Flomax 0.4 MG] 0.4 mg PO DAILY 01/22/22 [History] Hx Tetanus, Diphtheria Vaccination/Date Given: No Hx Influenza Vaccination/Date Given: Yes Hx Pneumococcal Vaccination/Date Given: No Travel Risk - International Travel Have you traveled outside of the country in past 3 weeks: No - Coronavirus Screening Are you exhibiting any of the following symptoms?: Yes Symptoms: Vomiting/Diarrhea Close contact with a COVID-19 positive Pt in past 14-21 Days: No - Vaccine Status Have you recieved a Covid-19 vaccination: Yes [employer]: [employer] - Vaccination Dates Date of 2cond Vaccination (if applicable): 08/11 - Review of Systems Constitutional: Weakness Eyes: No Symptoms Ears, Nose, & Throat: No Symptoms Respiratory: Cough (Mild) Cardiac: No Symptoms Abdominal/Gastrointestinal: Nausea, Vomiting, No Abdominal Pain, No Diarrhea Genitourinary Symptoms: No Symptoms Musculoskeletal: No Symptoms Skin: No Symptoms Neurological: No Symptoms Psychological: No Symptoms Endocrine: No Symptoms Hematologic/Lymphatic: No Symptoms Immunological/Allergic: No Symptoms All Other Systems: Reviewed and Negative - Past Medical History Pertinent Past Medical History: Yes Neurological History: No Pertinent History ENT History: No Pertinent History Cardiac History: No Pertinent History Respiratory History: Bronchitis Endocrine Medical History: No Pertinent History Musculoskeletal History: No Pertinent History GI Medical History: No Pertinent History History: No Pertinent History Psycho-Social History: Depression Male Reproductive Disorders: No Pertinent History - Past Surgical History Past Surgical History: Yes Neuro Surgical History: No Pertinent History Cardiac: No Pertinent History Respiratory: No Pertinent History Gastrointestinal: No Pertinent History Genitourinary: No Pertinent History Musculoskeletal: No Pertinent History Male Surgical History: No Pertinent History Other Surgical History: Surgery for encarcerated hernia repair and small bowel enastemosis. - Social History Smoking Status: Never smoker Exposure to second hand smoke: No Drug Use: none Patient Lives Alone: Yes Significant Family History: no pertinent family hx - Nursing Vital Signs Nursing Vital Signs: Initial Vital Signs Temperature 98.0 F 08/15/22 09:57 Pulse Rate 67 08/15/22 09:57 Respiratory Rate 18 08/15/22 09:57 Blood Pressure 157/85 08/15/22 09:57 O2 Sat by Pulse Oximetry 99 08/15/22 09:57 Pain Scale Pain Intensity 0 - Physical Exam General Appearance: no apparent distress, alert, anxiety Eye Exam: PERRL/EOMI, eyes nml inspection Ears, Nose, Throat Exam: normal ENT inspection, moist mucous membranes Neck Exam: normal inspection, non-tender, supple, full range of motion Respiratory Exam: normal breath sounds, lungs clear, airway intact, No chest tenderness, No respiratory distress Cardiovascular Exam: regular rate/rhythm, normal heart sounds, normal peripheral pulses Gastrointestinal/Abdomen Exam: soft, normal bowel sounds, No tenderness Rectal Exam: not done Back Exam: normal inspection, normal range of motion, No CVA tenderness Extremity Exam: normal inspection, normal range of motion, pelvis stable Neurologic Exam: alert, oriented x 3, cooperative, drawing frame tender II-XII nml as tested, normal mood/affect, nml cerebellar function, nml station & gait, sensation nml Skin Exam: normal color, warm, dry Lymphatic Exam: No adenopathy SpO2 Interpretation: normal O2 Delivery: Room Air - Course Nursing assessment & vital signs reviewed: Yes Ordered Tests: Active Orders 24 hr Category Date Time Status IV Insertion STAT Care 08/15/22 10:05 Active CHEST 1 VIEW (PORTABLE) Stat Exams 08/15/22 10:05 Taken AMYLASE Stat Lab 08/15/22 10:05 Completed BLOOD CULTURE Stat Lab 08/15/22 10:30 Received CBC W DIFF Stat Lab 08/15/22 10:05 Completed CMP Stat Lab 08/15/22 10:05 Completed LIPASE Stat Lab 08/15/22 10:05 Completed UA W/RFX UR CULTURE Stat Lab 08/15/22 12:29 Completed Medication Summary Discontinued Medications Generic Name Dose Route Start Last Admin Trade Name Freq PRN Reason Stop Dose Admin Sodium Chloride 1,000 mls @ 999 mls/hr 08/15/22 10:05 08/15/22 11:20 Sodium Chloride 0.9% 1000 Ml IV 08/15/22 11:05 Infused .Q1H1M STA Infusion Sodium Chloride Confirm 08/15/22 10:13 Sodium Chloride 0.9% 1000 Ml Administered 08/15/22 10:14 Dose 1,000 mls @ ud .ROUTE .STK-MED ONE Sodium Chloride 1,000 mls @ 999 mls/hr 08/15/22 11:32 08/15/22 11:42 Sodium Chloride 0.9% 1000 Ml IV 08/15/22 12:32 999 mls/hr .Q1H1M STA Administration Sodium Chloride Confirm 08/15/22 11:42 Sodium Chloride 0.9% 1000 Ml Administered 08/15/22 11:43 Dose 1,000 mls @ ud .ROUTE .STK-MED ONE Ondansetron HCl 4 mg 08/15/22 10:05 08/15/22 10:16 Ondansetron Hcl 4 Mg/2 Ml Vial IV 08/15/22 10:06 4 mg STAT ONE Administration Ondansetron HCl Confirm 08/15/22 10:13 Ondansetron Hcl 4 Mg/2 Ml Vial Administered 08/15/22 10:14 Dose 4 mg .ROUTE .STK-MED ONE Pantoprazole Sodium 40 mg 08/15/22 10:05 08/15/22 10:16 Pantoprazole 40 Mg Vial IV 08/15/22 10:06 40 mg STAT ONE Administration Pantoprazole Sodium Confirm 08/15/22 10:13 Pantoprazole 40 Mg Vial Administered 08/15/22 10:14 Dose 40 mg IV .[facility] ONE Lab/Rad Data: Laboratory Result Diagrams 08/15/22 10:05 08/15/22 10:05 Laboratory Results 08/15/22 08/15/22 08/15/22 Range/Units 12:29 10:30 10:05 WBC (4.0-10.5) x10^3/uL RBC (4.1-5.6) x10^6/uL Hgb (12.5-18.0) g/dL Hct (42-50) % MCV (78-100) fL MCH (26-32) pg MCHC (32-36) g/dL RDW (11.5-14.0) % Plt Count (150-450) x10^3/uL MPV (7.5-11.0) fL Gran % (36.0-66.0) % Immature Gran % (Auto) (0.00-0.4) % Nucleat RBC Rel Count (0.00-0.1) % Eos # (Auto) (0-0.5) x10^3/uL Immature Gran # (Auto) (0.00-0.03) x10^3u/L Absolute Lymphs (auto) (1.0-4.6) x10^3/uL Absolute Monos (auto) (0.0-1.3) x10^3/uL Absolute Nucleated RBC (0.00-0.01) x10^3u/L Lymphocytes % (24.0-44.0) % Monocytes % (0.0-12.0) % Eosinophils % (0.00-5.0) % Basophils % (0.0-0.4) % Absolute Granulocytes (1.4-6.9) x10^3/uL Basophils # (0-0.4) x10^3/uL Sodium 138 (137-145) mmol/L Potassium 4.4 (3.5-5.1) mmol/L Chloride 100 (98-107) mmol/L Carbon Dioxide 21 L (22-30) mmol/L Anion Gap 21.5 H (5-15) MEQ/L BUN 10 (9-20) mg/dL Creatinine 0.74 (0.66-1.25) mg/dL Estimated GFR > 60.0 ML/MIN Glucose 144 H (74-106) mg/dL Calcium 9.5 (8.4-10.2) mg/dL Total Bilirubin 1.20 (0.2-1.3) mg/dL AST 31 (17-59) U/L ALT 24 (0-50) U/L Alkaline Phosphatase 90 (38-126) U/L Serum Total Protein 8.8 H (6.3-8.2) g/dL Albumin 5.0 (3.5-5.0) g/dL Amylase 59 (30-110) U/L Lipase 39 (23-300) U/L Urine Color Yellow (Yellow) Urine Appearance Clear (Clear) Urine pH 8.5 A (4.6-8.0) Ur Specific [place] 1.020 (1.005-1.030) Urine Protein 30 (Negative) Urine Glucose (UA) Negative (Negative) mg/dL Urine Ketones 80 A (Negative) Urine Blood Negative (Negative) Urine Nitrite Negative (Negative) Urine Bilirubin Negative (Negative) Urine Urobilinogen 1.0 A (0.2) mg/dL Ur Leukocyte Esterase Trace A (Negative) U Hyaline Cast (Auto) NONE SEEN (0-2) /LPF Urine Microscopic RBC 3-5 (0-5) /HPF Urine Microscopic WBC 0-2 (0-5) /HPF Ur Epithelial Cells None Seen (None Seen) /HPF Urine Bacteria None Seen (None Seen) /HPF Urine Culture Reflexed NO (NO) Influenza Type A Ag NEGATIVE (NEGATIVE) Influenza Type B Ag NEGATIVE (NEGATIVE) RSV (PCR) NEGATIVE (Negative) SARS-CoV-2 (PCR) NEGATIVE (NEGATIVE) 08/15/22 Range/Units 10:05 WBC 6.9 (4.0-10.5) x10^3/uL RBC 5.04 (4.1-5.6) x10^6/uL Hgb 14.7 (12.5-18.0) g/dL Hct 44.6 (42-50) % MCV 88.5 (78-100) fL MCH 29.2 (26-32) pg MCHC 33.0 (32-36) g/dL RDW 12.5 (11.5-14.0) % Plt Count 305 (150-450) x10^3/uL MPV 9.2 (7.5-11.0) fL Gran % 76.2 H (36.0-66.0) % Immature Gran % (Auto) 0.1 (0.00-0.4) % Nucleat RBC Rel Count 0.0 (0.00-0.1) % Eos # (Auto) 0.07 (0-0.5) x10^3/uL Immature Gran # (Auto) 0.01 (0.00-0.03) x10^3u/L Absolute Lymphs (auto) 1.12 (1.0-4.6) x10^3/uL Absolute Monos (auto) 0.40 (0.0-1.3) x10^3/uL Absolute Nucleated RBC 0.00 (0.00-0.01) x10^3u/L Lymphocytes % 16.3 L (24.0-44.0) % Monocytes % 5.8 (0.0-12.0) % Eosinophils % 1.0 (0.00-5.0) % Basophils % 0.6 (0.0-0.4) % Absolute Granulocytes 5.25 (1.4-6.9) x10^3/uL Basophils # 0.04 (0-0.4) x10^3/uL Sodium (137-145) mmol/L Potassium (3.5-5.1) mmol/L Chloride (98-107) mmol/L Carbon Dioxide (22-30) mmol/L Anion Gap (5-15) MEQ/L BUN (9-20) mg/dL Creatinine (0.66-1.25) mg/dL Estimated GFR ML/MIN Glucose (74-106) mg/dL Calcium (8.4-10.2) mg/dL Total Bilirubin (0.2-1.3) mg/dL AST (17-59) U/L ALT (0-50) U/L Alkaline Phosphatase (38-126) U/L Serum Total Protein (6.3-8.2) g/dL Albumin (3.5-5.0) g/dL Amylase (30-110) U/L Lipase (23-300) U/L Urine Color (Yellow) Urine Appearance (Clear) Urine pH (4.6-8.0) Ur Specific [place] (1.005-1.030) Urine Protein (Negative) Urine Glucose (UA) (Negative) mg/dL Urine Ketones (Negative) Urine Blood (Negative) Urine Nitrite (Negative) Urine Bilirubin (Negative) Urine Urobilinogen (0.2) mg/dL Ur Leukocyte Esterase (Negative) U Hyaline Cast (Auto) (0-2) /LPF Urine Microscopic RBC (0-5) /HPF Urine Microscopic WBC (0-5) /HPF Ur Epithelial Cells (None Seen) /HPF Urine Bacteria (None Seen) /HPF Urine Culture Reflexed (NO) Influenza Type A Ag (NEGATIVE) Influenza Type B Ag (NEGATIVE) RSV (PCR) (Negative) SARS-CoV-2 (PCR) (NEGATIVE) - Progress Progress: improved Progress Note: 08/15/22 10:23 Chest x-ray was interpreted by me. There are chronic changes and no acute cardiopulmonary processes 08/15/22 12:40 Patient states that he is feeling much better at this time. He states he wants to go home. However, I did tell him we are waiting for him to provide us with a urine specimen so we can evaluate his urine for infection and for dehydration 08/15/22 13:21 This patient's medical issue is 1 of moderate complexity. This is based on review of the patient's past medical history, review of his medication list, review of his complaint, review of history of present illness and physical findings on physical examination. The above prompted me to have an intravenous line placed, provide the patient with intravenous fluids and intravenous anti emetics. We also obtain lab work, viral swabs and urine for urinalysis. I reviewed the results of the studies and the patient's symptoms improved with our intervention. Patient states he feels well enough to go home and wants to go home. Discharge planning includes instructions to continue the medication as prescribed. He is to follow-up with his primary care provider for further evaluation management. He is to drink plenty of clear liquids and then advance his diet slowly as tolerated. We prescribed him Zofran and ODT to help control any nausea if present as an outpatient. Counseled pt/family regarding: lab results, diagnosis, need for follow-up, rad results Medical Desision Making - Discussion of managment Reviewed:: Test results - Diagnostic Testing Diagnostic test were ordered, analyzed, and reviewed by me: Yes - Risk of complications Low Risk: Low risk of morbidity from additional dx testing or treatment - Departure Clinical Impression: Nausea and vomiting, Cough, Dehydration Condition: Stable Critical Care Time: No Referrals: MICHEL PRINGLE NP [Primary Care Provider] - Follow up/PCP as directed Additional Instructions: Drink plenty of clear liquids. Do not advance her diet until you are tolerating clear liquids well. Take your medications as prescribed. Follow-up with your primary care provider for further evaluation management. Prescriptions: Ondansetron ODT 4 MG [Zofran Odt 4 mg] 4 mg PO Q6H PRN PRN #10 tablet PRN Reason: Vomiting
[2022-08-15] MEDS ORDERED: Sodium Chloride 0.9% 1000 ML 1,000 ML IV STA ×2 (10:05→11:32)
[2022-08-15] MEDS ORDERED: Zofran 4 MG/2 ML VIAL IV ONE (10:05)
[2022-08-15] MEDS ORDERED: PROTONIX 40 MG IV IV ONE ×2 (10:05→10:13)
[2022-08-15] MEDS ORDERED: Sodium Chloride 0.9% 1000 ML 1,000 ML ONE ×2 (10:13→11:42)
[2022-08-15] MEDS ORDERED: Zofran 4 MG/2 ML VIAL ONE (10:13)
[2022-08-15 10:18] LABS: Absolute Neutrophil Ct (ANC) 5.25 x10^3/uL (1.4-6.9); BASOPHIL % 0.6 % (0.0-0.4); Basophil (Absolute #) 0.04 x10^3/uL (0-0.4); Eosinophil (Absolute #) 0.07 x10^3/uL (0-0.5); Hematocrit 44.6 % (42-50); Hemoglobin 14.7 g/dL (12.5-18.0); IMMATURE GRAN # 0.01 x10^3u/L (0.00-0.03); IMMATURE GRAN % 0.1 % (0.00-0.4); Lymphocyte (Absolute #) 1.12 x10^3/uL (1.0-4.6); Lymphocytes % 16.3 % (24.0-44.0); Mean Cell Volume 88.5 fL (78-100); Mean Corpuscular Hemoglobin 29.2 pg (26-32); Mean Platelet Volume 9.2 fL (7.5-11.0); Monocytes % 5.8 % (0.0-12.0); Neutrophil % 76.2 % (36.0-66.0); Platelet Count 305 x10^3/uL (150-450); Red Blood Count 5.04 x10^6/uL (4.1-5.6); Red Cell Distribution Width 12.5 % (11.5-14.0); White Blood Count 6.9 x10^3/uL (4.0-10.5)
[2022-08-15 10:32] LABS: ALKALINE PHOSPHATASE 90 U/L (38-126); AMYLASE 59 U/L (30-110); ANION GAP 21.5 MEQ/L (5-15); BLOOD UREA NITROGEN 10 mg/dL (9-20); CHLORIDE 100 mmol/L (98-107); Calcium 9.5 mg/dL (8.4-10.2); Carbon Dioxide 21 mmol/L (22-30); Creatinine 1 0.74 mg/dL (0.66-1.25); EST GLOMERULAR FILTRATION RATE > 60.0 ML/MIN; Glucose 144 mg/dL (74-106); LIPASE 39 U/L (23-300); Potassium 4.4 mmol/L (3.5-5.1); SGOT/AST 31 U/L (17-59); SGPT/ALT 24 U/L (0-50); SODIUM 138 mmol/L (137-145); Total Protein 8.8 g/dL (6.3-8.2)
[2022-08-15 11:17] LABS: INFLUENZA A NEGATIVE (NEGATIVE); INFLUENZA B NEGATIVE (NEGATIVE); RESPIRATORY SYNCTIAL VIRUS NEGATIVE (Negative); SARS-CoV-2 Xpert Express NEGATIVE (NEGATIVE)
[2022-08-15 12:37] VITALS: PULSE 78; O2SAT 97
[2022-08-15 13:34] LABS: Appearance Clear (Clear); Bacteria None Seen /HPF (None Seen); Bilirubin Negative (Negative); Blood Negative (Negative); Epithelial Cells None Seen /HPF (None Seen); Glucose, Urine Negative (Negative); Hyaline Casts NONE SEEN /LPF (0-2); Ketones 80 (Negative); Leukocyte Esterase Trace (Negative); Nitrite Negative (Negative); Ph 8.5 (4.6-8.0); Protein,Urine Dip 30 (Negative); WBC 0-2 /HPF (0-5)
[2022-08-15 13:35] LABS: ADD URINE CULTURE? NO (NO)
[2022-08-15 13:51] VITALS: BP 155/83
--- NOTE | 2022-08-15 20:17 | XRAY ---
Indication: Vomiting. Comparison: January 24, 2022 Portable chest again hyperinflated and clear. Heart not enlarged. Bony thorax intact again with osteopenia, mild degenerative changes, and mild levoscoliosis. Impression: Nonacute hyperinflated chest with chronic bony findings.
== END 2022-08-15 13:50 | disposition home or self-care (01) ==
LOC: ED 09:53
DX: R11.2 Nausea with vomiting, unspecified (principal); R05.9 Cough, unspecified; E86.0 Dehydration; Z79.899 Other long term (current) drug therapy; Z20.828 Contact with and (suspected) exposure to other viral communicable diseases
CPT/HCPCS: 0241U; 36000; 36415; 71045; 80053; 81001; 82150; 83690; 85025; 87040; 96360; 96374; 96375; 99284; J2405

== ENCOUNTER 2022-11-18 08:28 | Day surgery (SDC) | payer OTHER ==
[2022-11-18] MEDS ORDERED: Depo-Medrol 40 MG/ML IM ONE (08:29)
[2022-11-18] MEDS ORDERED: BUPIVACAINE 0.5% VIAL IJ ONE (08:29)
[2022-11-18] MEDS ORDERED: DIPRIVAN 200 MG/20 ML IV ONE (09:45)
--- NOTE | 2022-11-18 10:52 | XRAY ---
Indication: Right hip injection. Intraoperative fluoroscopy was provided for 7 seconds. Single digital spot image submitted for interpretation demonstrates needle tip lateral to the right femur neck. Small amount of contrast injected for needle tip placement. Correlate with intraoperative findings/report.
--- NOTE | 2022-11-18 10:52 | XRAY ---
Indication: Right knee injection. Intraoperative fluoroscopy was provided for 5 seconds. Single digital spot image submitted for interpretation demonstrates needle tip projecting over the right femur intercondylar notch. Small amount of contrast injected for needle tip placement. Correlate with intraoperative findings/report.
--- NOTE | 2022-11-18 11:34 | XRAY ---
5 seconds of fluoroscopy was used in surgery for a right intra-articular knee injection.
--- NOTE | 2022-11-18 11:34 | XRAY ---
7 seconds of fluoroscopy was used in surgery for a right intra-articular hip injection.
[2022-11-18] MEDS ORDERED: Lactated Ringers 1,000 ML IV ONE (15:16)
== END 2022-11-18 10:28 | disposition home or self-care (01) ==
LOC: SDC-PAIN 08:28
PROVIDERS: ATTEND Psychiatry & Neurology Pain Medicine
DX: M16.11 Unilateral primary osteoarthritis, right hip (principal); M17.11 Unilateral primary osteoarthritis, right knee; Z79.899 Other long term (current) drug therapy
CPT/HCPCS: 20610; 73501; 73560; 77002; J1030; J2704; Q9966

== ENCOUNTER 2023-02-10 08:27 | Day surgery (SDC) | payer OTHER ==
[2023-02-10] MEDS ORDERED: BUPIVACAINE 0.5% VIAL IJ ONE (08:28)
[2023-02-10] MEDS ORDERED: Depo-Medrol 40 MG/ML IM ONE (08:28)
[2023-02-10] MEDS ORDERED: DIPRIVAN 200 MG/20 ML IV ONE (10:36)
--- NOTE | 2023-02-10 12:47 | XRAY ---
Indication: Right hip injection. Intraoperative fluoroscopy provided for 32 seconds. Single digital spot image submitted for interpretation demonstrates needle tip projecting lateral to right femur neck. Small amount of contrast injected for needle tip placement. Correlate with intraoperative findings/report.
--- NOTE | 2023-02-10 13:02 | XRAY ---
32 seconds of fluoroscopy was used in surgery for a right intra-articular hip injection.
[2023-02-10] MEDS ORDERED: Lactated Ringers 1,000 ML IV ONE (13:35)
== END 2023-02-10 11:06 | disposition home or self-care (01) ==
LOC: SDC-PAIN 08:27
PROVIDERS: ATTEND Psychiatry & Neurology Pain Medicine
DX: M16.11 Unilateral primary osteoarthritis, right hip (principal); Z79.899 Other long term (current) drug therapy
CPT/HCPCS: 20610; 73502; 77002; J1030; J2704; Q9966

== ENCOUNTER 2023-07-26 09:57 | Emergency (ER) | payer OTHER ==
[2023-07-26] MEDS ORDERED: Zofran 4 MG/2 ML VIAL ONE (10:28)
[2023-07-26] MEDS ORDERED: Sodium Chloride 0.9% 1000 ML 1,000 ML ONE (10:28)
[2023-07-26] MEDS: Zofran 4 MG/2 ML VIAL IV ONE (10:29)
[2023-07-26 10:30] VITALS: TEMP 99
[2023-07-26] MEDS: Sodium Chloride 0.9% 1000 ML 1,000 ML IV STA (10:30)
[2023-07-26 10:37] LABS: Absolute Neutrophil Ct (ANC) 6.12 x10^3/uL (1.4-6.9); BASOPHIL % 0.7 % (0.0-0.4); Basophil (Absolute #) 0.06 x10^3/uL (0-0.4); Eosinophil % 1.1 % (0.00-5.0); Eosinophil (Absolute #) 0.09 x10^3/uL (0-0.5); Hemoglobin 14.4 g/dL (12.5-18.0); IMMATURE GRAN # 0.03 x10^3u/L (0.00-0.03); IMMATURE GRAN % 0.4 % (0.00-0.4); Lymphocyte (Absolute #) 1.36 x10^3/uL (1.0-4.6); Lymphocytes % 16.3 % (24.0-44.0); Mean Cell Volume 89.4 fL (78-100); Mean Corpuscular Hemoglobin 29.3 pg (26-32); Mean Corpuscular Hgb Concent. 32.7 g/dL (32-36); Mean Platelet Volume 8.9 fL (7.5-11.0); Monocytes % 8.4 % (0.0-12.0); Neutrophil % 73.1 % (36.0-66.0); Platelet Count 337 x10^3/uL (150-450); Red Blood Count 4.92 x10^6/uL (4.1-5.6); Red Cell Distribution Width 12.1 % (11.5-14.0); White Blood Count 8.4 x10^3/uL (4.0-10.5)
[2023-07-26 10:53] LABS: ALBUMIN 5.2 g/dL (3.5-5.0); ANION GAP 16.7 MEQ/L (5-15); BILIRUBIN,TOTAL 1.3 mg/dL (0.2-1.3); Calcium 10.4 mg/dL (8.4-10.2); Creatinine 1 0.74 mg/dL (0.66-1.25); EST GLOMERULAR FILTRATION RATE 89.9 ML/MIN; Potassium 4.6 mmol/L (3.5-5.1); Total Protein 9.2 g/dL (6.3-8.2)
--- NOTE | 2023-07-26 10:55 | ERPHSYRPT ---
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 Patient had diarrhea on Wednesday. Has not had a bowel movement since then. No falls no trauma. No fever no chills. Patient is here with his hand tube bender. Pain is midepigastric, does not radiate. Has not tried anything make it better or worse. Allergies/Adverse Reactions: No Known Drug Allergies Allergy (Verified 07/26/23 10:32) Home Medications: Levothyroxine Sodium 100 Mcg [Synthroid 100 Mcg] 100 mcg PO DAILY 11/23/21 [History] Duloxetine HCl 20 mg PO DAILY 07/26/23 [History] Hydrocodone/Acetaminophen [Hydrocodone-Acetamin 5-325 mg] 1 each PO UD 07/26/23 [History] Hx Tetanus, Diphtheria Vaccination/Date Given: No Hx Influenza Vaccination/Date Given: Yes Hx Pneumococcal Vaccination/Date Given: No Travel Risk - International Travel Have you traveled outside of the country in past 3 weeks: No - Coronavirus Screening Are you exhibiting any of the following symptoms?: No - Vaccine Status Have you recieved a Covid-19 vaccination: Yes 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: [employer] - Vaccination Dates Date of 2cond Vaccination (if applicable): 08/11 - Past Medical History Pertinent Past Medical History: Yes Neurological History: Other ENT History: No Pertinent History Cardiac History: High Cholesterol Respiratory History: No Pertinent History Endocrine Medical History: Hypothyroidism Musculoskeletal History: Osteoarthritis GI Medical History: No Pertinent History History: No Pertinent History Psycho-Social History: Depression Male Reproductive Disorders: No Pertinent History Other Medical History: HAS ANEURYSM IN BRAIN WHICH CAUSES MIGRAINES - USES HYDROCODONE FOR MIGRAINES AND FOR ARTHRITIC PAIN. - Past Surgical History Past Surgical History: Yes Neuro Surgical History: No Pertinent History Cardiac: No Pertinent History Respiratory: No Pertinent History Gastrointestinal: No Pertinent History Genitourinary: No Pertinent History Musculoskeletal: No Pertinent History Male Surgical History: No Pertinent History Other Surgical History: Surgery for encarcerated hernia repair and small bowel enastemosis. - Social History Smoking Status: Never smoker Exposure to second hand smoke: No Drug Use: none Patient Lives Alone: Yes Significant Family History: no pertinent family hx - Nursing Vital Signs Nursing Vital Signs: Initial Vital Signs Temperature 99.0 F 07/26/23 10:07 Blood Pressure 177/86 07/26/23 10:07 Pain Scale Pain Intensity 6 - Physical Exam Comments: 07/26/23 10:53 Review of Systems Constitutional: Negative for fever. HENT: Negative for congestion. Respiratory: Negative for shortness of breath. Cardiovascular: Negative for chest pain. Gastrointestinal: Nausea, vomiting, diarrhea, abdominal pain Genitourinary: Negative for dysuria. Musculoskeletal: Negative for back pain. Skin: Negative for rash. Neurological: Negative for headaches. Psychiatric/Behavioral: Negative for behavioral problems. All other systems reviewed and are negative. Physical Exam Vitals signs and nursing note reviewed. Constitutional: Appearance: Patient is well-developed. HENT: Head: Normocephalic and atraumatic. Eyes: Conjunctiva/sclera: Conjunctivae normal. Neck: Trachea: No tracheal deviation. Cardiovascular: Rate and Rhythm: Normal rate. Pulmonary: Effort: Pulmonary effort is normal. No respiratory distress. Abdominal: Palpations: Abdomen is soft, no rebound guarding. Minimal tenderness diffusely Musculoskeletal: General: No deformity. Skin: General: Skin is warm and dry. Neurological: Mental Status: Patient is alert and oriented to person, place, and time, behavior normal. Ordered Tests: Active Orders 24 hr Category Date Time Status EKG-ER Only STAT Care 07/26/23 10:22 Active IV Insertion STAT Care 07/26/23 10:22 Active ABDOMEN AND PELVIS W/0 CONTRAS [CT] Stat Exams 07/26/23 10:22 Completed CHEST 1 VIEW (PORTABLE) Stat Exams 07/26/23 10:22 Completed AMYLASE Stat Lab 07/26/23 10:32 Completed CBC W DIFF Stat Lab 07/26/23 10:32 Completed CMP Stat Lab 07/26/23 10:32 Completed LIPASE Stat Lab 07/26/23 10:32 Completed TROPONIN Q4H Lab 07/26/23 10:32 Completed TROPONIN Q4H Lab 07/26/23 14:30 Ordered TROPONIN Q4H Lab 07/26/23 18:30 Ordered UA W/RFX UR CULTURE Stat Lab 07/26/23 11:34 Completed Medication Summary Discontinued Medications Generic Name Dose Route Start Last Admin Trade Name Yari PRN Reason Stop Dose Admin Sodium Chloride 1,000 mls @ 999 mls/hr 07/26/23 10:22 07/26/23 11:31 Sodium Chloride 0.9% 1000 Ml IV 07/26/23 11:22 Infused .Q1H1M STA Infusion Sodium Chloride Confirm 07/26/23 10:28 Sodium Chloride 0.9% 1000 Ml Administered 07/26/23 10:29 Dose 1,000 mls @ ud .ROUTE .STK-MED ONE Ondansetron HCl 4 mg 07/26/23 10:22 07/26/23 10:29 Ondansetron Hcl 4 Mg/2 Ml Vial IV 07/26/23 10:23 4 mg STAT ONE Administration Ondansetron HCl Confirm 07/26/23 10:28 Ondansetron Hcl 4 Mg/2 Ml Vial Administered 07/26/23 10:29 Dose 4 mg .ROUTE .STK-MED ONE Lab/Rad Data: Laboratory Result Diagrams 07/26/23 10:32 07/26/23 10:32 Laboratory Results 07/26/23 07/26/23 07/26/23 Range/Units 11:34 10:35 10:32 WBC (4.0-10.5) x10^3/uL RBC (4.1-5.6) x10^6/uL Hgb (12.5-18.0) g/dL Hct (42-50) % MCV (78-100) fL MCH (26-32) pg MCHC (32-36) g/dL RDW (11.5-14.0) % Plt Count (150-450) x10^3/uL MPV (7.5-11.0) fL Gran % (36.0-66.0) % Immature Gran % (Auto) (0.00-0.4) % Nucleat RBC Rel Count (0.00-0.1) % Eos # (Auto) (0-0.5) x10^3/uL Immature Gran # (Auto) (0.00-0.03) x10^3u/L Absolute Lymphs (auto) (1.0-4.6) x10^3/uL Absolute Monos (auto) (0.0-1.3) x10^3/uL Absolute Nucleated RBC (0.00-0.01) x10^3u/L Lymphocytes % (24.0-44.0) % Monocytes % (0.0-12.0) % Eosinophils % (0.00-5.0) % Basophils % (0.0-0.4) % Absolute Granulocytes (1.4-6.9) x10^3/uL Basophils # (0-0.4) x10^3/uL Sodium (137-145) mmol/L Potassium (3.5-5.1) mmol/L Chloride (98-107) mmol/L Carbon Dioxide (22-30) mmol/L Anion Gap (5-15) MEQ/L BUN (9-20) mg/dL Creatinine (0.66-1.25) mg/dL Estimated GFR ML/MIN Glucose (74-106) mg/dL Calcium (8.4-10.2) mg/dL Total Bilirubin (0.2-1.3) mg/dL AST (17-59) U/L ALT (0-50) U/L Alkaline Phosphatase (38-126) U/L Troponin I < 0.012 (0.000-0.034) ng/mL Serum Total Protein (6.3-8.2) g/dL Albumin (3.5-5.0) g/dL Amylase (30-110) U/L Lipase (23-300) U/L Urine Color Yellow (Yellow) Urine Appearance Clear (Clear) Urine pH 7.5 (4.6-8.0) Ur Specific [place] 1.015 (1.005-1.030) Urine Protein 30 (Negative) Urine Glucose (UA) Negative (Negative) mg/dL Urine Ketones 15 A (Negative) Urine Blood Trace (Negative) Urine Nitrite Negative (Negative) Urine Bilirubin Negative (Negative) Urine Urobilinogen 1.0 A (0.2) mg/dL Ur Leukocyte Esterase Negative (Negative) U Hyaline Cast (Auto) NONE SEEN (0-2) /LPF Urine Microscopic RBC 6-10 A (0-5) /HPF Urine Microscopic WBC 0-2 (0-5) /HPF Ur Epithelial Cells None Seen (None Seen) /HPF Urine Bacteria None Seen (None Seen) /HPF Urine Culture Reflexed NO (NO) Influenza Type A Ag NEGATIVE (NEGATIVE) Influenza Type B Ag NEGATIVE (NEGATIVE) RSV (PCR) NEGATIVE (NEGATIVE) SARS-CoV-2 (PCR) NEGATIVE (NEGATIVE) 07/26/23 07/26/23 Range/Units 10:32 10:32 WBC 8.4 (4.0-10.5) x10^3/uL RBC 4.92 (4.1-5.6) x10^6/uL Hgb 14.4 (12.5-18.0) g/dL Hct 44.0 (42-50) % MCV 89.4 (78-100) fL MCH 29.3 (26-32) pg MCHC 32.7 (32-36) g/dL RDW 12.1 (11.5-14.0) % Plt Count 337 (150-450) x10^3/uL MPV 8.9 (7.5-11.0) fL Gran % 73.1 H (36.0-66.0) % Immature Gran % (Auto) 0.4 (0.00-0.4) % Nucleat RBC Rel Count 0.0 (0.00-0.1) % Eos # (Auto) 0.09 (0-0.5) x10^3/uL Immature Gran # (Auto) 0.03 (0.00-0.03) x10^3u/L Absolute Lymphs (auto) 1.36 (1.0-4.6) x10^3/uL Absolute Monos (auto) 0.70 (0.0-1.3) x10^3/uL Absolute Nucleated RBC 0.00 (0.00-0.01) x10^3u/L Lymphocytes % 16.3 L (24.0-44.0) % Monocytes % 8.4 (0.0-12.0) % Eosinophils % 1.1 (0.00-5.0) % Basophils % 0.7 (0.0-0.4) % Absolute Granulocytes 6.12 (1.4-6.9) x10^3/uL Basophils # 0.06 (0-0.4) x10^3/uL Sodium 137 (137-145) mmol/L Potassium 4.6 (3.5-5.1) mmol/L Chloride 101 (98-107) mmol/L Carbon Dioxide 24 (22-30) mmol/L Anion Gap 16.7 H (5-15) MEQ/L BUN 9 (9-20) mg/dL Creatinine 0.74 (0.66-1.25) mg/dL Estimated GFR 89.9 ML/MIN Glucose 121 H (74-106) mg/dL Calcium 10.4 H (8.4-10.2) mg/dL Total Bilirubin 1.30 (0.2-1.3) mg/dL AST 22 (17-59) U/L ALT 18 (0-50) U/L Alkaline Phosphatase 77 (38-126) U/L Troponin I (0.000-0.034) ng/mL Serum Total Protein 9.2 H (6.3-8.2) g/dL Albumin 5.2 H (3.5-5.0) g/dL Amylase 93 (30-110) U/L Lipase 55 (23-300) U/L Urine Color (Yellow) Urine Appearance (Clear) Urine pH (4.6-8.0) Ur Specific [place] (1.005-1.030) Urine Protein (Negative) Urine Glucose (UA) (Negative) mg/dL Urine Ketones (Negative) Urine Blood (Negative) Urine Nitrite (Negative) Urine Bilirubin (Negative) Urine Urobilinogen (0.2) mg/dL Ur Leukocyte Esterase (Negative) U Hyaline Cast (Auto) (0-2) /LPF Urine Microscopic RBC (0-5) /HPF Urine Microscopic WBC (0-5) /HPF Ur Epithelial Cells (None Seen) /HPF Urine Bacteria (None Seen) /HPF Urine Culture Reflexed (NO) Influenza Type A Ag (NEGATIVE) Influenza Type B Ag (NEGATIVE) RSV (PCR) (NEGATIVE) SARS-CoV-2 (PCR) (NEGATIVE) - Progress Progress: improved Progress Note: 07/26/23 10:54 Differential diagnosis includes kidney stone, diarrhea, viral illness, COVID, s mall bowel obstruction -Plan for basic labs, fluids, CT scan, nausea medication 07/26/23 12:56 Patient feeling improved here with fluids and Zofran. No further vomiting in the emergency department. CT scan has several chronic findings however no new acute pathology causing patient's abdominal vomiting and slight comfort. Patient's viral swabs did return negative. Patient's EKG, troponin were n egative for cardiac events as well. Patient is in sinus rhythm, no ST changes on EKG. I personally reviewed all labs and imaging. Patient did have a slight anion gap, I do believe this is from dehydration and vomiting. Fluids should help correct this. UA shows no signs of a UTI. However reflex culture will be sent. Chest x-ray shows no pneumonia or other acute changes. Ultimately, unclear if patient just has a GI bug, other gastritis, viral enteritis. However no obvious emergency found today on initial workup. Patient will return here sooner for any new or changing symptoms. Otherwise, plan for close outpatient management and follow-up. Patient will be given Zofran to go home with to ensure that he can continue to hold down fluids. Plan for discharge. Counseled pt/family regarding: lab results, diagnosis, need for follow-up, rad results - Departure Departure Disposition: Home Clinical Impression: Vomiting Condition: Stable Critical Care Time: No Referrals: MICHEL PRINGLE NP [Primary Care Provider] - Follow up/PCP as directed Prescriptions: Ondansetron ODT 4 MG [Zofran Odt 4 mg] 4 mg PO Q6H PRN PRN #10 tablet PRN Reason: Vomiting
--- NOTE | 2023-07-26 11:05 | XRAY ---
Indication: Pneumonia. Comparison: August 15, 2022 Portable chest again hyperinflated and clear. Heart not enlarged. Bony thorax intact. No new/acute findings.
--- NOTE | 2023-07-26 11:11 | XRAY ---
Indication: Vomiting. Multiple contiguous axial images obtained through the abdomen and pelvis without contrast. Comparison: January 22, 2022 Lung bases clear. Heart is not enlarged. Again small hiatal hernia. Noncontrasted stomach and bowel loops nonobstructed. Again sigmoid diverticulosis and appendectomy. New intact mid pelvic bowel anastomosis. Again mildly distended gallbladder without gallstones or biliary distention. Prostate gland remains enlarged impressing on the base of the bladder. No free fluid/air. Remaining liver, gallbladder, pancreas, spleen, adrenal glands, kidneys, ureters, and bladder are unremarkable for noncontrast exam. There remains mild scattered aortoiliac calcifications without AAA. Osseous structures intact again with osteopenia, mild/moderate degenerative changes throughout spine, mild degenerative changes left hip, and markedly advanced degenerative changes right hip. Enlarging large left inguinal hernia again with herniated loop of colon without obstruction/incarceration. New small right inguinal hernia with herniated knuckle of bowel without complications. Impression: 1. Enlarging large left inguinal and new small right inguinal hernias as detailed without complications. 2. Again chronic findings including hiatal hernia, sigmoid diverticulosis, distended gallbladder without gallstones/biliary distention, enlarged prostate, arteriosclerotic disease, and chronic bony findings. 3. Remaining CT abdomen/pelvis without contrast exam is negative.
[2023-07-26 11:16] LABS: INFLUENZA A NEGATIVE (NEGATIVE); INFLUENZA B NEGATIVE (NEGATIVE); RESPIRATORY SYNCTIAL VIRUS NEGATIVE (NEGATIVE); SARS-CoV-2 Xpert Express NEGATIVE (NEGATIVE)
[2023-07-26 11:30] VITALS: O2SAT 97
[2023-07-26 11:44] LABS: Appearance Clear (Clear); Bacteria None Seen /HPF (None Seen); Bilirubin Negative (Negative); Blood Trace (Negative); Epithelial Cells None Seen /HPF (None Seen); Glucose, Urine Negative (Negative); Hyaline Casts NONE SEEN /LPF (0-2); Ketones 15 (Negative); Leukocyte Esterase Negative (Negative); Nitrite Negative (Negative); Ph 7.5 (4.6-8.0); Protein,Urine Dip 30 (Negative); Specific Gravity 1.015 (1.005-1.030); WBC 0-2 /HPF (0-5)
[2023-07-26 11:45] LABS: ADD URINE CULTURE? NO (NO)
[2023-07-26 12:58] VITALS: BP 159/83; PULSE 76; RESP 16
== END 2023-07-26 13:08 | disposition home or self-care (01) ==
LOC: ED 09:57
DX: R11.10 Vomiting, unspecified (principal); R10.13 Epigastric pain; E78.5 Hyperlipidemia, unspecified; Z79.891 Long term (current) use of opiate analgesic; Z79.899 Other long term (current) drug therapy
CPT/HCPCS: 0241U; 36415; 71045; 74176; 80053; 81001; 82150; 83690; 84484; 85025; 93005; 96360; 96374; 99284; J2405

== ENCOUNTER 2023-12-27 10:26 | Emergency (ER) | payer OTHER ==
[2023-12-27 10:35] VITALS: TEMP 97.4
--- NOTE | 2023-12-27 10:41 | ERPHSYRPT ---
- History of Present Illness Time Seen by Provider: 12/27/23 10:41 Source: patient Exam Limitations: no limitations Physician History: This is an 83-year-old white male patient who receives his medical care at the [facility] and presents to the emergency department with 48-hour history of dizziness, headache and unsteady on his feet. Patient states that he is chronically, intermittently unsteady on his feet and does fall frequently. He currently is not dizzy and he does not have a headache. However, he states that those symptoms seem to come on intermittently when he is up and ambulating. Patient drove himself into the emergency department today. Patient called the [facility] today and they told him to come to the emergency department. Patient does see Dr. Higginbotham as his pain physician. Patient takes hydrocodone to treat his migraine headaches. Patient has a history of cerebral aneurysm when reviewing the patient's old charts. Patient has a history of intermittent syncopal episodes, history of hypothyroidism, history of depression and history of hyperlipidemia. Patient denies visual changes. Patient denies chest pain. He has no shortness of breath. He does not have a follow-up appointment to see a primary care provider or a neurologist. Timing/Duration: day(s) (2) Severity: mild Character of Deficits: none Deficits: off balance (Up and ambulating. This has been chronic) Baseline/Normal Cognition: alert oriented x 3 Current Cognition: alert oriented x 3 Baseline Gait: uses cane Associated Symptoms: trouble walking (Chronic), headache, No confusion, No loss of consciousness, No nausea, No vomiting, No weakness, No slurred speech, No vision changes, No chest pain (None now) Allergies/Adverse Reactions: No Known Drug Allergies Allergy (Verified 12/27/23 10:30) Home Medications: Levothyroxine Sodium 100 Mcg [Synthroid 100 Mcg] 100 mcg PO DAILY 11/23/21 [History] Duloxetine HCl 20 mg PO DAILY 07/26/23 [History] Ezetimibe 10 mg [Zetia 10 MG] 10 mg PO DAILY 12/27/23 [History] Hx Tetanus, Diphtheria Vaccination/Date Given: No Hx Influenza Vaccination/Date Given: Yes Hx Pneumococcal Vaccination/Date Given: No Travel Risk - International Travel Have you traveled outside of the country in past 3 weeks: No - Emerging Infectious Disease Are you exhibiting symptoms associated with any current EIDs: No - Review of Systems Constitutional: No Symptoms Eyes: No Symptoms Ears, Nose, & Throat: No Symptoms Respiratory: No Symptoms Cardiac: No Symptoms Abdominal/Gastrointestinal: No Symptoms Genitourinary Symptoms: No Symptoms Musculoskeletal: No Symptoms Skin: No Symptoms Neurological: Dizziness (None now in the supine position), Headache (None now) Psychological: No Symptoms Endocrine: No Symptoms Hematologic/Lymphatic: No Symptoms Immunological/Allergic: No Symptoms All Other Systems: Reviewed and Negative - Past Medical History Pertinent Past Medical History: Yes Neurological History: Other ENT History: No Pertinent History Cardiac History: High Cholesterol Respiratory History: No Pertinent History Endocrine Medical History: Hypothyroidism Musculoskeletal History: Osteoarthritis GI Medical History: No Pertinent History History: No Pertinent History Psycho-Social History: Depression Male Reproductive Disorders: No Pertinent History Other Medical History: HAS ANEURYSM IN BRAIN WHICH CAUSES MIGRAINES - USES HYDROCODONE FOR MIGRAINES AND FOR ARTHRITIC PAIN. - Past Surgical History Past Surgical History: Yes Neuro Surgical History: No Pertinent History Cardiac: No Pertinent History Respiratory: No Pertinent History Gastrointestinal: No Pertinent History Genitourinary: No Pertinent History Musculoskeletal: No Pertinent History Male Surgical History: No Pertinent History Other Surgical History: Surgery for encarcerated hernia repair and small bowel enastemosis. Significant Family History: no pertinent family hx - Social History Smoking Status: Never smoker Exposure to second hand smoke: No Drug Use: none Patient Lives Alone: Yes - Nursing Vital Signs Nursing Vital Signs: Initial Vital Signs Pulse Rate 71 12/27/23 10:30 Respiratory Rate 15 12/27/23 10:30 Blood Pressure 156/93 12/27/23 10:30 O2 Sat by Pulse Oximetry 99 12/27/23 10:30 Pain Scale Pain Intensity 0 - Jolynn Coma Scale Best Eye Response ([place]): (4) open spontaneously Best Verbal Response ([place]ynn): (5) oriented Best Motor Response ([place]): (6) obeys commands Jolynn Total: 15 - Physical Exam General Appearance: no apparent distress, alert Eye Exam: bilateral eye: normal inspection, PERRL, EOMI Ears, Nose, Throat Exam: normal ENT inspection, TMs normal, moist mucous membranes Neck Exam: normal inspection, non-tender, supple, full range of motion Respiratory: normal breath sounds, lungs clear, airway intact, No chest tenderness, No respiratory distress Cardiovascular: regular rate/rhythm, normal heart sounds, normal peripheral pulses Gastrointestinal: soft, normal bowel sounds, No tenderness Rectal Exam: not done Back Exam: normal inspection, normal range of motion, No CVA tenderness, No vertebral tenderness Extremity Exam: normal inspection, normal range of motion, pelvis stable Mental Status: alert, oriented x 3, 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 There is no evidence of any acute ischemia on today's twelve-lead EKG.) Ordered Tests: Active Orders 24 hr Category Date Time Status EKG-ER Only STAT Care 12/27/23 10:53 Active IV Insertion STAT Care 12/27/23 10:53 Active HEAD WITHOUT CONTRAST [CT] Stat Exams 12/27/23 10:30 Completed CBC W DIFF Stat Lab 12/27/23 11:22 Completed CMP Stat Lab 12/27/23 11:22 Completed ETHYL ALCOHOL Stat Lab 12/27/23 11:22 Completed MAGNESIUM Stat Lab 12/27/23 11:22 Completed TROPONIN Q4H Lab 12/27/23 11:22 Completed TROPONIN Q4H Lab 12/27/23 14:00 Completed TROPONIN Q4H Lab 12/27/23 19:00 Ordered TSH [TSH, 3RD Generation] Stat Lab 12/27/23 11:22 Completed UA W/RFX UR CULTURE Stat Lab 12/27/23 11:39 Completed Medication Summary Generic Name Dose Route Start Last Admin Trade Name Freq PRN Reason Stop Dose Admin Sodium Chloride 1,000 mls @ 100 mls/hr 12/27/23 11:00 12/27/23 11:30 Sodium Chloride 0.9% 1000 Ml IV 01/26/24 10:59 100 mls/hr .Q10H BLANCA Administration Discontinued Medications Generic Name Dose Route Start Last Admin Trade Name Freq PRN Reason Stop Dose Admin Hydralazine HCl 10 mg 12/27/23 12:37 12/27/23 13:32 Hydralazine Hcl 20 Mg/Ml Vial IV 12/27/23 12:38 5 mg STAT ONE Administration Hydralazine HCl Confirm 12/27/23 13:30 Hydralazine Hcl 20 Mg/Ml Vial Administered 12/27/23 13:31 Dose 20 mg .ROUTE .[facility] Meclizine HCl 25 mg 12/27/23 11:56 12/27/23 13:31 Meclizine Hcl 25 Mg Tablet PO 12/27/23 11:57 25 mg STAT ONE Administration Meclizine HCl Confirm 12/27/23 13:25 Meclizine Hcl 25 Mg Tablet Administered 12/27/23 13:26 Dose 25 mg .ROUTE .[facility] Lab/Rad Data: Laboratory Result Diagrams 12/27/23 11:22 12/27/23 11:22 Laboratory Results 12/27/23 12/27/23 12/27/23 Range/Units 14:00 11:39 11:22 WBC (4.23-9.07) x10^3/uL RBC (4.63-6.08) x10^6/uL Hgb (13.7-17.5) g/dL Hct (40.1-51.0) % MCV (79.0-92.2) fL MCH (25.7-32.2) pg MCHC (32.3-36.5) g/dL RDW (11.6-14.4) % Plt Count (163-337) x10^3/uL MPV (9.4-12.4) fL Gran % (34.0-67.9) % Immature Gran % (Auto) (0.001-0.429) % Nucleat RBC Rel Count (0.00-0.2) % Eos # (Auto) (0.04-0.54) x10^3/uL Immature Gran # (Auto) (0.001-0.031) x10^3u/L Absolute Lymphs (auto) (1.32-3.57) x10^3/uL Absolute Monos (auto) (0.30-0.82) x10^3/uL Absolute Nucleated RBC (0.00-0.012) x10^3u/L Lymphocytes % (21.8-53.1) % Monocytes % (5.3-12.2) % Eosinophils % (0.8-7.0) % Basophils % (0.2-1.2) % Absolute Granulocytes (1.78-5.38) x10^3/uL Basophils # (0.01-0.08) x10^3/uL Sodium (135-145) mmol/L Potassium (3.5-5.1) mmol/L Chloride (98-107) mmol/L Carbon Dioxide (22-30) mmol/L Anion Gap (5-15) MEQ/L BUN (9-20) mg/dL Creatinine (0.66-1.25) mg/dL Estimated GFR ML/MIN Glucose (74-106) mg/dL Calcium (8.4-10.2) mg/dL Magnesium (1.6-2.3) mg/dL Total Bilirubin (0.2-1.3) mg/dL AST (17-59) U/L ALT (0-50) U/L Alkaline Phosphatase (38-126) U/L Troponin I < 0.012 (0.000-0.033) ng/mL Serum Total Protein (6.3-8.2) g/dL Albumin (3.5-5.0) g/dL Free T4 1.09 (0.78-2.19) ng/dL TSH 3rd Generation (0.470-4.680) mIU/L Urine Color Yellow (Yellow) Urine Appearance Clear (Clear) Urine pH 7.0 (4.6-8.0) Ur Specific [place] 1.010 (1.005-1.030) Urine Protein Negative (Negative) Urine Glucose (UA) Negative (Negative) mg/dL Urine Ketones Negative (Negative) Urine Blood Negative (Negative) Urine Nitrite Negative (Negative) Urine Bilirubin Negative (Negative) Urine Urobilinogen 1.0 A (0.2) mg/dL Ur Leukocyte Esterase Negative (Negative) U Hyaline Cast (Auto) NONE SEEN (0-2) /LPF Urine Microscopic RBC 0-2 (0-5) /HPF Urine Microscopic WBC 0-2 (0-5) /HPF Ur Epithelial Cells None Seen (None Seen) /HPF Urine Bacteria None Seen (None Seen) /HPF Urine Culture Reflexed NO (NO) Ethyl Alcohol (0-10) mg/dL 12/27/23 12/27/23 12/27/23 Range/Units 11:22 11:22 11:22 WBC (4.23-9.07) x10^3/uL RBC (4.63-6.08) x10^6/uL Hgb (13.7-17.5) g/dL Hct (40.1-51.0) % MCV (79.0-92.2) fL MCH (25.7-32.2) pg MCHC (32.3-36.5) g/dL RDW (11.6-14.4) % Plt Count (163-337) x10^3/uL MPV (9.4-12.4) fL Gran % (34.0-67.9) % Immature Gran % (Auto) (0.001-0.429) % Nucleat RBC Rel Count (0.00-0.2) % Eos # (Auto) (0.04-0.54) x10^3/uL Immature Gran # (Auto) (0.001-0.031) x10^3u/L Absolute Lymphs (auto) (1.32-3.57) x10^3/uL Absolute Monos (auto) (0.30-0.82) x10^3/uL Absolute Nucleated RBC (0.00-0.012) x10^3u/L Lymphocytes % (21.8-53.1) % Monocytes % (5.3-12.2) % Eosinophils % (0.8-7.0) % Basophils % (0.2-1.2) % Absolute Granulocytes (1.78-5.38) x10^3/uL Basophils # (0.01-0.08) x10^3/uL Sodium 137 (135-145) mmol/L Potassium 4.7 (3.5-5.1) mmol/L Chloride 103 (98-107) mmol/L Carbon Dioxide 27 (22-30) mmol/L Anion Gap 11.8 (5-15) MEQ/L BUN 11 (9-20) mg/dL Creatinine 0.94 (0.66-1.25) mg/dL Estimated GFR 80.4 ML/MIN Glucose 111 H (74-106) mg/dL Calcium 9.3 (8.4-10.2) mg/dL Magnesium 2.2 (1.6-2.3) mg/dL Total Bilirubin 0.60 (0.2-1.3) mg/dL AST 17 (17-59) U/L ALT 12 (0-50) U/L Alkaline Phosphatase 53 (38-126) U/L Troponin I < 0.012 (0.000-0.033) ng/mL Serum Total Protein 7.1 (6.3-8.2) g/dL Albumin 4.2 (3.5-5.0) g/dL Free T4 (0.78-2.19) ng/dL TSH 3rd Generation 1.956 (0.470-4.680) mIU/L Urine Color (Yellow) Urine Appearance (Clear) Urine pH (4.6-8.0) Ur Specific [place] (1.005-1.030) Urine Protein (Negative) Urine Glucose (UA) (Negative) mg/dL Urine Ketones (Negative) Urine Blood (Negative) Urine Nitrite (Negative) Urine Bilirubin (Negative) Urine Urobilinogen (0.2) mg/dL Ur Leukocyte Esterase (Negative) U Hyaline Cast (Auto) (0-2) /LPF Urine Microscopic RBC (0-5) /HPF Urine Microscopic WBC (0-5) /HPF Ur Epithelial Cells (None Seen) /HPF Urine Bacteria (None Seen) /HPF Urine Culture Reflexed (NO) Ethyl Alcohol < 10 (0-10) mg/dL // Range/Units 11:22 WBC 5.9 (4.23-9.07) x10^3/uL RBC 4.03 L (4.63-6.08) x10^6/uL Hgb 11.9 L (13.7-17.5) g/dL Hct 36.2 L (40.1-51.0) % MCV 89.8 (79.0-92.2) fL MCH 29.5 (25.7-32.2) pg MCHC 32.9 (32.3-36.5) g/dL RDW 12.3 (11.6-14.4) % Plt Count 240 (163-337) x10^3/uL MPV 9.0 L (9.4-12.4) fL Gran % 65.1 (34.0-67.9) % Immature Gran % (Auto) 0.2 (0.001-0.429) % Nucleat RBC Rel Count 0.0 (0.00-0.2) % Eos # (Auto) 0.25 (0.04-0.54) x10^3/uL Immature Gran # (Auto) 0.01 (0.001-0.031) x10^3u/L Absolute Lymphs (auto) 1.21 L (1.32-3.57) x10^3/uL Absolute Monos (auto) 0.54 (0.30-0.82) x10^3/uL Absolute Nucleated RBC 0.00 (0.00-0.012) x10^3u/L Lymphocytes % 20.5 L (21.8-53.1) % Monocytes % 9.2 (5.3-12.2) % Eosinophils % 4.2 (0.8-7.0) % Basophils % 0.8 (0.2-1.2) % Absolute Granulocytes 3.84 (1.78-5.38) x10^3/uL Basophils # 0.05 (0.01-0.08) x10^3/uL Sodium (135-145) mmol/L Potassium (3.5-5.1) mmol/L Chloride (98-107) mmol/L Carbon Dioxide (22-30) mmol/L Anion Gap (5-15) MEQ/L BUN (9-20) mg/dL Creatinine (0.66-1.25) mg/dL Estimated GFR ML/MIN Glucose (74-106) mg/dL Calcium (8.4-10.2) mg/dL Magnesium (1.6-2.3) mg/dL Total Bilirubin (0.2-1.3) mg/dL AST (17-59) U/L ALT (0-50) U/L Alkaline Phosphatase (38-126) U/L Troponin I (0.000-0.033) ng/mL Serum Total Protein (6.3-8.2) g/dL Albumin (3.5-5.0) g/dL Free T4 (0.78-2.19) ng/dL TSH 3rd Generation (0.470-4.680) mIU/L Urine Color (Yellow) Urine Appearance (Clear) Urine pH (4.6-8.0) Ur Specific [place] (1.005-1.030) Urine Protein (Negative) Urine Glucose (UA) (Negative) mg/dL Urine Ketones (Negative) Urine Blood (Negative) Urine Nitrite (Negative) Urine Bilirubin (Negative) Urine Urobilinogen (0.2) mg/dL Ur Leukocyte Esterase (Negative) U Hyaline Cast (Auto) (0-2) /LPF Urine Microscopic RBC (0-5) /HPF Urine Microscopic WBC (0-5) /HPF Ur Epithelial Cells (None Seen) /HPF Urine Bacteria (None Seen) /HPF Urine Culture Reflexed (NO) Ethyl Alcohol (0-10) mg/dL - Progress Progress: improved, re-examined Progress Note: 12/27/23 12:16 My medical decision making and the assignment of moderate complexity to this patient's medical issue today is based on review of the patient's past medical history, review of patient's medication list, review patient drug allergy list, history present illness and physical findings on examination. The workup in this patient includes placement of an intravenous line, twelve-lead EKG, CBC, CMP, magnesium level, urinalysis, troponin level and CT scan of the head without contrast. Differential diagnosis includes but is not limited to recurrent vertigo, elect rolyte abnormality, urinary tract infection, dehydration, arrhythmia, acute intracranial abnormality. 12/27/23 14:44 I interpreted the patient's laboratory data results. Based on the laboratory data results, the patient does not have an acute, emergent medical issue at this time. The CT scan of the head without contrast was interpreted by the radiologist and I reviewed the impression. 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 I reexamined the patient. The patient has no chest pain. I interpreted the second twelve-lead EKG. There is no evidence of any acute ischemia. Patient states he is feeling much better after improving his blood pressure and providing him with meclizine. He has no further dizziness. Counseled pt/family regarding: lab results, diagnosis, need for follow-up, rad results Medical Desision Making - Diagnostic Testing Diagnostic test were ordered, analyzed, and reviewed by me: Yes Radiological Interpretation: Reviewed by me, Teleradiologist Report - Risk of complications The pt has a mod risk of morbidity or mortality based on: Need for prescription drug management - Departure Departure Disposition: Home Clinical Impression: Hypertension, Dizziness Condition: Stable Critical Care Time: No Referrals: MICHEL PRINGLE NP [Primary Care Provider] - Follow up/PCP as directed Additional Instructions: Take your medications as prescribed. Call your primary care provider today, 12/27/2023, to make arrangements for follow-up appointment to be seen in the next 3 to 5 days. Keep a daily log of morning noon and night blood pressure readings. Do this for 2 to 3 days. Take these readings with you to your follow-up appointment with your primary care provider. Prescriptions: Meclizine HCl 25 mg [Antivert 25 mg] 25 mg PO Q8H PRN #10 tablet PRN Reason: Dizziness Hydrochlorothiazide 25 mg [hydroDIURIL 25 MG] 25 mg PO DAILY #10 tablet
--- NOTE | 2023-12-27 11:06 | XRAY ---
Indication: Headache and dizziness 1 week. Multiple contiguous axial images obtained through the head without contrast. Comparison: October 24, 2021 Again age-appropriate global atrophy and moderate periventricular degenerative micro-ischemia bilaterally. No acute intracranial hemorrhage, abnormal extra-axial fluid collection, or mass effect. Fourth ventricle is midline without hydrocephalus. Bony calvarium intact. Visualized paranasal sinuses and mastoid air cells are clear. Impression: Continued nonacute senile brain.
[2023-12-27 11:27] LABS: Absolute Neutrophil Ct (ANC) 3.84 x10^3/uL (1.78-5.38); BASOPHIL % 0.8 % (0.2-1.2); Basophil (Absolute #) 0.05 x10^3/uL (0.01-0.08); Eosinophil % 4.2 % (0.8-7.0); Eosinophil (Absolute #) 0.25 x10^3/uL (0.04-0.54); Hematocrit 36.2 % (40.1-51.0); Hemoglobin 11.9 g/dL (13.7-17.5); IMMATURE GRAN # 0.01 x10^3u/L (0.001-0.031); IMMATURE GRAN % 0.2 % (0.001-0.429); Lymphocyte (Absolute #) 1.21 x10^3/uL (1.32-3.57); Lymphocytes % 20.5 % (21.8-53.1); Mean Cell Volume 89.8 fL (79.0-92.2); Mean Corpuscular Hemoglobin 29.5 pg (25.7-32.2); Mean Corpuscular Hgb Concent. 32.9 g/dL (32.3-36.5); Monocyte (Absolute #) 0.54 x10^3/uL (0.30-0.82); Monocytes % 9.2 % (5.3-12.2); Neutrophil % 65.1 % (34.0-67.9); Platelet Count 240 x10^3/uL (163-337); Red Blood Count 4.03 x10^6/uL (4.63-6.08); Red Cell Distribution Width 12.3 % (11.6-14.4); White Blood Count 5.9 x10^3/uL (4.23-9.07)
[2023-12-27] MEDS ORDERED: Sodium Chloride 0.9% 1000 ML 1,000 ML ONE (11:28)
[2023-12-27] MEDS: Sodium Chloride 0.9% 1000 ML 1,000 ML IV SCH (11:30)
[2023-12-27 11:48] LABS: ALBUMIN 4.2 g/dL (3.5-5.0); ALKALINE PHOSPHATASE 53 U/L (38-126); ANION GAP 11.8 MEQ/L (5-15); BLOOD UREA NITROGEN 11 mg/dL (9-20); CHLORIDE 103 mmol/L (98-107); Calcium 9.3 mg/dL (8.4-10.2); Carbon Dioxide 27 mmol/L (22-30); Creatinine 1 0.94 mg/dL (0.66-1.25); EST GLOMERULAR FILTRATION RATE 80.4 ML/MIN; ETHYL ALCOHOL < 10 mg/dL (0-10); Glucose 111 mg/dL (74-106); MAGNESIUM 2.2 mg/dL (1.6-2.3); Potassium 4.7 mmol/L (3.5-5.1); SGOT/AST 17 U/L (17-59); SGPT/ALT 12 U/L (0-50); SODIUM 137 mmol/L (135-145); Total Protein 7.1 g/dL (6.3-8.2)
[2023-12-27 11:54] LABS: Appearance Clear (Clear); Bacteria None Seen /HPF (None Seen); Bilirubin Negative (Negative); Blood Negative (Negative); Epithelial Cells None Seen /HPF (None Seen); Glucose, Urine Negative (Negative); Hyaline Casts NONE SEEN /LPF (0-2); Ketones Negative (Negative); Leukocyte Esterase Negative (Negative); Nitrite Negative (Negative); Protein,Urine Dip Negative (Negative); RBC 0-2 /HPF (0-5); WBC 0-2 /HPF (0-5)
[2023-12-27 11:56] LABS: ADD URINE CULTURE? NO (NO)
[2023-12-27] MEDS ORDERED: ANTIVERT 25 MG ONE (13:25)
[2023-12-27] MEDS ORDERED: APRESOLINE 20 MG/ML INJ ONE (13:30)
[2023-12-27] MEDS: ANTIVERT 25 MG PO ONE (13:31)
[2023-12-27] MEDS: APRESOLINE 20 MG/ML INJ IV ONE (13:32)
[2023-12-27 14:48] VITALS: O2SAT 98
[2023-12-27 15:08] VITALS: BP 161/83; PULSE 81; RESP 19
== END 2023-12-27 15:16 | disposition home or self-care (01) ==
LOC: ED 10:26
DX: I10 Essential (primary) hypertension (principal); R42 Dizziness and giddiness; R51.9 Headache, unspecified; E78.5 Hyperlipidemia, unspecified; Z79.899 Other long term (current) drug therapy; Z79.891 Long term (current) use of opiate analgesic
CPT/HCPCS: 36000; 36415; 70450; 80053; 81001; 82077; 83735; 84439; 84443; 84484; 85025; 93005; 96360; 96374; 99284; J0360; A9270-GY

== ENCOUNTER 2025-03-03 11:14 | Emergency (ER) | payer OTHER ==
--- NOTE | 2025-03-03 11:27 | ERPHSYRPT ---
- History of Present Illness Time Seen by Provider: 03/03/25 11:27 Source: patient, EMS Exam Limitations: no limitations Physician History: This is an 85-year-old patient who presents to the emergency department by the room manager service secondary to lower abdominal pressure and associated urinary retention and constipation worsening over the last 5 days.. Patient underwent a laparoscopic to be at our facility 9 days ago. Postoperatively he was given a prescription for tramadol. He did not use it yesterday. Patient denies chest pain. Patient denies shortness of breath. Patient denies nausea vomiting and diarrhea symptoms. This patient has multiple medical problems including hyperlipidemia, hypertension, hypothyroidism, osteoarthritis, gastroesophageal reflux disease and depression Timing/Duration: day(s) (5), worse Severity: mild (To moderate) Associated Symptoms: abdominal pain (Suprapubic pressure), No shortness of breath, No chest pain, No fever Allergies/Adverse Reactions: pravastatin Adverse Reaction (Mild, Verified 02/14/25 09:16) muscle pain buprenorphine Adverse Reaction (Verified 02/14/25 09:16) urinary retention citalopram Adverse Reaction (Verified 02/14/25 09:16) sedated simvastatin [From Zocor] Adverse Reaction (Verified 02/14/25 09:16) muscle pain tamsulosin [From Flomax] Adverse Reaction (Verified 02/14/25 09:16) flu-like symptoms trazodone Adverse Reaction (Verified 02/14/25 09:16) nausea/ vomiting venlafaxine Adverse Reaction (Verified 02/14/25 09:16) Headache Home Medications: Levothyroxine Sodium 100 Mcg [Synthroid 100 Mcg] 100 mcg PO DAILY 11/23/21 [History] Cyanocobalamin 500 Mcg [Vitamin B-12 500 MCG] 1,000 mcg PO DAILY 12/29/24 [History] Desvenlafaxine Succinate [Pristiq] 50 mg PO DAILY 12/29/24 [History] Quetiapine Fumarate [Seroquel] 50 mg PO HS 12/29/24 [History] Apixaban [Eliquis 2.5 mg Tablet] 5 mg PO BID 02/14/25 [History] Aspirin 81 mg PO DAILY 02/14/25 [History] Tamsulosin HCl [Flomax] 0.4 mg PO DAILY 02/14/25 [History] Ezetimibe 10 mg [Zetia 10 MG] 10 mg PO DAILY 03/03/25 [History] Hydrocodone/Acetaminophen [[place] 10-325 mg] 1 tablet PO Q6H PRN 03/03/25 [History] PANTOPRAZOLE 40 mg Tablet [Protonix 40MG Tablet] 40 mg PO QAM 03/03/25 [History] Sennosides/Docusate Sodium [Docusate Sodium-Sennosides Tab] 2 tab PO BID 03/03/25 [History] Sucralfate 1 gm [Carafate 1 GM] 1 g PO ACHS 03/03/25 [History] Hx Tetanus, Diphtheria Vaccination/Date Given: No Hx Influenza Vaccination/Date Given: Yes Hx Pneumococcal Vaccination/Date Given: No Travel Risk - International Travel Have you traveled outside of the country in past 3 weeks: No - Emerging Infectious Disease Are you exhibiting symptoms associated with any current EIDs: No Symptoms: Abdominal Pain, Vomitting, Other (Please Comment) Comment: - - Review of Systems Constitutional: No Symptoms Eyes: No Symptoms Ears, Nose, & Throat: No Symptoms Respiratory: No Symptoms Cardiac: No Symptoms Abdominal/Gastrointestinal: Abdominal Pain (Suprapubic pressure), Constipation, No Nausea, No Vomiting, No Diarrhea, No Appetite Changes Genitourinary Symptoms: Urinary Retention Musculoskeletal: No Symptoms Skin: No Symptoms Neurological: No Symptoms Psychological: No Symptoms Endocrine: No Symptoms Hematologic/Lymphatic: No Symptoms Immunological/Allergic: No Symptoms All Other Systems: Reviewed and Negative - Past Medical History Pertinent Past Medical History: Yes Neurological History: Other ENT History: No Pertinent History Cardiac History: High Cholesterol, Hypertension Respiratory History: No Pertinent History Endocrine Medical History: Hypothyroidism Musculoskeletal History: Osteoarthritis GI Medical History: No Pertinent History, GERD History: No Pertinent History Psycho-Social History: Depression Male Reproductive Disorders: No Pertinent History Other Medical History: HAS ANEURYSM IN BRAIN WHICH CAUSES MIGRAINES - USES HYDROCODONE FOR MIGRAINES AND FOR ARTHRITIC PAIN. - Past Surgical History Past Surgical History: Yes Neuro Surgical History: No Pertinent History Cardiac: No Pertinent History Respiratory: No Pertinent History Gastrointestinal: Appendectomy, Other Genitourinary: No Pertinent History Musculoskeletal: Joint Replacement Male Surgical History: No Pertinent History Other Surgical History: Surgery for encarcerated hernia repair and small bowel enastemosis. Significant Family History: heart disease - Social History Smoking Status: Never smoker - Social Determinants of Health Will the patient participate in the screening: Yes Do you worry about a steady place to live?: No In the past 12 months,have you had to go without utilities?: No Transportation Issues: No Has anyone in your support network made you feel unsafe?: No Have you or anyone in your house had to go w/o enough food: No - Nursing Vital Signs Nursing Vital Signs: Initial Vital Signs Temperature 98.3 F 03/03/25 11:15 Pulse Rate 85 03/03/25 11:15 Respiratory Rate 18 03/03/25 11:15 Blood Pressure 161/86 03/03/25 11:15 O2 Sat by Pulse Oximetry 99 03/03/25 11:15 Pain Scale Pain Intensity 5 - Physical Exam General Appearance: no apparent distress, alert, anxiety Eye Exam: PERRL/EOMI, eyes nml inspection Ears, Nose, Throat Exam: normal ENT inspection, moist mucous membranes Neck Exam: normal inspection, non-tender, supple, full range of motion Respiratory Exam: normal breath sounds, lungs clear, airway intact, No chest tenderness, No respiratory distress Cardiovascular Exam: regular rate/rhythm, normal heart sounds, normal peripheral pulses Gastrointestinal/Abdomen Exam: soft, normal bowel sounds, tenderness (Mild pressure suprapubic region to palpation), No guarding, No rebound Male Genitalia Exam: hernia (Bilateral inguinal hernias left greater than right) Rectal Exam: not done Back Exam: normal inspection, normal range of motion, No CVA tenderness, No vertebral tenderness Extremity Exam: normal inspection, normal range of motion, pelvis stable Neurologic Exam: alert, oriented x 3, cooperative, labeling specialist II-XII nml as tested, normal mood/affect Skin Exam: normal color, warm, dry, other (Post operative laparoscopic skin incisions have the bandages in place.) Lymphatic Exam: No adenopathy SpO2 Interpretation: normal O2 Delivery: Room Air - Course Nursing assessment & vital signs reviewed: Yes Ordered Tests: Active Orders 24 hr Category Date Time Status Catheter-[place] Lock STAT Care 03/03/25 11:47 Active Enema STAT Care 03/03/25 12:54 Active KUB Stat Exams 03/03/25 11:47 Taken CULTURE,URINE Stat Lab 03/03/25 12:05 Received UA W/RFX UR CULTURE Stat Lab 03/03/25 12:05 Completed Lab/Rad Data: Laboratory Results 03/03/25 Range/Units 12:05 Urine Color Dark Yellow (Yellow) Urine Appearance Clear (Clear) Urine pH 5.0 (4.6-8.0) Ur Specific [place] 1.020 (1.005-1.030) Urine Protein 30 (Negative) Urine Glucose (UA) Negative (Negative) mg/dL Urine Ketones Trace A (Negative) Urine Blood Small A (Negative) Urine Nitrite Negative (Negative) Urine Bilirubin Negative (Negative) Urine Urobilinogen 1.0 A (0.2) mg/dL Ur Leukocyte Esterase Small A (Negative) U Hyaline Cast (Auto) NONE SEEN (0-2) /LPF Urine Microscopic RBC 11-20 A (0-5) /HPF Urine Microscopic WBC 3-5 (0-5) /HPF Ur Epithelial Cells None Seen (None Seen) /HPF Urine Bacteria None Seen (None Seen) /HPF Urine Culture Reflexed ORDERED SEPARATELY (NO) - Progress Progress: improved Progress Note: 03/03/25 12:05 My medical decision making and the assignment of moderate complexity of this patient's medical issue today is based on review of the patient's past medical history, review of the patient's medication list, reviewed patient drug allergy list, history present illness and physical findings on examination. Workup in this patient includes placement of a Lock catheter with urinalysis after urinary bladder scan is performed. After reducing the bladder size with the Lock catheter insertion, we will order a KUB to evaluate for the presence of fecal stasis/constipation. If needed, we will provide the patient with an enema. After the Lock catheter was inserted, significant amount of urine output relieved the patient's symptoms. Differential diagnosis includes but is not limited to fecal stasis/constipation, urinary retention, urinary tract infection 03/03/25 12:54 I interpreted the patient's laboratory data results. Based on laboratory data results, there is no evidence of any acute or emergent medical issue. I interpreted the preliminary KUB report. There is no evidence of air-fluid levels or signs of obstruction. There is significant left-sided stool present which may represent moderate fecal stasis. 03/03/25 14:52 Patient is clinically feeling much improved. He wants the Lock catheter removed. He is hungry and thirsty and wants to go home to eat. He will use the fleets enema at home and follow-up as an outpatient. Counseled pt/family regarding: lab results, diagnosis, need for follow-up, rad results Medical Desision Making - Independent Historian Additional History obtained from: Tax Manager Cpa/EMT - Diagnostic Testing Radiological Interpretation: Reviewed by me, Teleradiologist Report - Risk of complications Low Risk: Low risk of morbidity from additional dx testing or treatment - Departure Departure Disposition: Home Clinical Impression: Postoperative urinary retention, Constipation Condition: Stable Critical Care Time: No Referrals: MICHEL PRINGLE NP [Primary Care Provider, UNKNOWN] - Follow up/PCP as directed Additional Instructions: Drink plenty of clear liquids. Advance your diet once you are tolerating clear liquids well. Stop your tramadol and stop your hydrocodone medication. Just use Tylenol and ibuprofen for pain control. You may use [id number] MiraLAX if there are no contraindications. Follow directions on the packaging. Use your take-home fleets enema as instructed on the outpatient packaging. Call your primary care provider on 03/05/2025, to make arrangements for a follow-up appointment for further evaluation management.
[2025-03-03 11:47] VITALS: TEMP 98.3
[2025-03-03 12:34] LABS: Glucose, Urine Negative (Negative); Protein,Urine Dip 30 (Negative)
[2025-03-03 14:03] VITALS: O2SAT 100
[2025-03-03 15:13] VITALS: BP 144/61; PULSE 64; RESP 18
--- NOTE | 2025-03-03 20:10 | XRAY ---
Indication: Pain. Comparison: None KUB nonacute nonobstructed with little colonic fecal debris. Incidental cholecystectomy clips and right cutaneous conner. Solid organs unremarkable. Osseous structures intact with osteopenia, multilevel degenerative spondylosis, mild left hip degenerative arthropathy, and incompletely visualized right hip arthroplasty.
== END 2025-03-03 15:23 | disposition home or self-care (01) ==
LOC: ED 11:14
DX: R33.8 Other retention of urine (principal); K59.00 Constipation, unspecified; I10 Essential (primary) hypertension; Z79.01 Long term (current) use of anticoagulants; Z79.891 Long term (current) use of opiate analgesic; Z79.899 Other long term (current) drug therapy

== ENCOUNTER 2025-03-05 07:59 | Emergency (ER) | payer OTHER ==
[2025-03-05 08:14] VITALS: PULSE 79; TEMP 98
--- NOTE | 2025-03-05 08:20 | ERPHSYRPT ---
- History of Present Illness Time Seen by Provider: 03/05/25 08:05 Source: patient Exam Limitations: no limitations Patient Subjective Stated Complaint: unable to urinate Triage Nursing Assessment: Pt brought self to the ER, hypertensive, rates abd ominal pain as 5/10, pulses normal, skin n/w/d, bladder distended, no difficulty breathing, no chest pain Physician History: Patient had recent gallbladder removal. Patient states that he has had urinary retention for the past 24 hours. Patient was seen in this emergency department this weekend. He had his bladder drained at that point in time. However no Lock catheter was placed. No falls no trauma no fever no chills. His incisions are clean dry and intact. He otherwise has no abdominal pain. Patient is taking PO well. Same number of urinations and defecations. The patient has no signs of altered mental status, nuchal rigidity, signs of meningitis. The patient is up-to-date on all vaccinations. Allergies/Adverse Reactions: pravastatin Adverse Reaction (Mild, Verified 03/05/25 08:14) muscle pain buprenorphine Adverse Reaction (Verified 03/05/25 08:14) urinary retention citalopram Adverse Reaction (Verified 03/05/25 08:14) sedated simvastatin [From Zocor] Adverse Reaction (Verified 03/05/25 08:14) muscle pain tamsulosin [From Flomax] Adverse Reaction (Verified 03/05/25 08:14) flu-like symptoms trazodone Adverse Reaction (Verified 03/05/25 08:14) nausea/ vomiting venlafaxine Adverse Reaction (Verified 03/05/25 08:14) Headache Home Medications: Levothyroxine Sodium 100 Mcg [Synthroid 100 Mcg] 100 mcg PO DAILY 11/23/21 [History] Cyanocobalamin 500 Mcg [Vitamin B-12 500 MCG] 1,000 mcg PO DAILY 12/29/24 [History] Desvenlafaxine Succinate [Pristiq] 50 mg PO DAILY 12/29/24 [History] Quetiapine Fumarate [Seroquel] 50 mg PO HS 12/29/24 [History] Apixaban [Eliquis 2.5 mg Tablet] 5 mg PO BID 02/14/25 [History] Aspirin 81 mg PO DAILY 02/14/25 [History] Tamsulosin HCl [Flomax] 0.4 mg PO DAILY 02/14/25 [History] Ezetimibe 10 mg [Zetia 10 MG] 10 mg PO DAILY 03/03/25 [History] Hydrocodone/Acetaminophen [[place] 10-325 mg] 1 tablet PO Q6H PRN 03/03/25 [History] PANTOPRAZOLE 40 mg Tablet [Protonix 40MG Tablet] 40 mg PO QAM 03/03/25 [History] Sennosides/Docusate Sodium [Docusate Sodium-Sennosides Tab] 2 tab PO BID 03/03/25 [History] Sucralfate 1 gm [Carafate 1 GM] 1 g PO ACHS 03/03/25 [History] Hx Tetanus, Diphtheria Vaccination/Date Given: No Hx Influenza Vaccination/Date Given: Yes Hx Pneumococcal Vaccination/Date Given: No Travel Risk - International Travel Have you traveled outside of the country in past 3 weeks: No - Emerging Infectious Disease Are you exhibiting symptoms associated with any current EIDs: No Symptoms: Abdominal Pain, Vomitting, Other (Please Comment) Comment: - - Past Medical History Pertinent Past Medical History: Yes Neurological History: Other ENT History: No Pertinent History Cardiac History: High Cholesterol, Hypertension Respiratory History: No Pertinent History Endocrine Medical History: Hypothyroidism Musculoskeletal History: Osteoarthritis GI Medical History: No Pertinent History, GERD History: No Pertinent History Psycho-Social History: Depression Male Reproductive Disorders: No Pertinent History Other Medical History: HAS ANEURYSM IN BRAIN WHICH CAUSES MIGRAINES - USES HYDROCODONE FOR MIGRAINES AND FOR ARTHRITIC PAIN. - Past Surgical History Past Surgical History: Yes Neuro Surgical History: No Pertinent History Cardiac: No Pertinent History Respiratory: No Pertinent History Gastrointestinal: Appendectomy, Other Genitourinary: No Pertinent History Musculoskeletal: Joint Replacement Male Surgical History: No Pertinent History Other Surgical History: Surgery for encarcerated hernia repair and small bowel e nastemosis. Significant Family History: heart disease - Social History Smoking Status: Never smoker Exposure to second hand smoke: No Drug Use: none - Social Determinants of Health Will the patient participate in the screening: Yes Do you worry about a steady place to live?: No Do you have any problems with any of the following?: No known problems In the past 12 months,have you had to go without utilities?: No Transportation Issues: No Has anyone in your support network made you feel unsafe?: No Have you or anyone in your house had to go w/o enough food: No - Nursing Vital Signs Nursing Vital Signs: Initial Vital Signs Temperature 98.0 F 03/05/25 08:07 Pulse Rate 79 03/05/25 08:07 Blood Pressure 158/85 03/05/25 08:07 O2 Sat by Pulse Oximetry 99 03/05/25 08:07 Pain Scale Pain Intensity 5 - Physical Exam SpO2: 99 Comments: 03/05/25 08:19 Review of Systems Constitutional: Negative for fever. HENT: Negative for congestion. Respiratory: Negative for shortness of breath. Cardiovascular: Negative for chest pain. Gastrointestinal: Negative for abdominal pain. Genitourinary: Negative for dysuria. Urinary retention Musculoskeletal: Negative for back pain. Skin: Negative for rash. Neurological: Negative for headaches. Psychiatric/Behavioral: Negative for behavioral problems. All other systems reviewed and are negative. Physical Exam Vitals signs and nursing note reviewed. Constitutional: Appearance: Patient is well-developed. HENT: Head: Normocephalic and atraumatic. Eyes: Conjunctiva/sclera: Conjunctivae normal. Neck: Musculoskeletal: Normal range of motion. Trachea: No tracheal deviation. Cardiovascular: Rate and Rhythm: Normal rate. Heart sounds normal. Pulmonary: Effort: Pulmonary effort is normal. No respiratory distress. Abdominal: Palpations: Abdomen is soft. Minimal tenderness suprapubically Musculoskeletal: General: No deformity. Skin: General: Skin is warm and dry. Neurological/ Psychiatric: Mental Status: Mental status, behavior, interaction with environment is appropriate for patient's age and condition - Course Nursing assessment & vital signs reviewed: Yes Ordered Tests: Active Orders 24 hr Category Date Time Status Lock [Catheter-[place] Lock] STAT Care 03/05/25 08:14 Active CULTURE,URINE Stat Lab 03/05/25 08:30 Received UA W/RFX UR CULTURE Stat Lab 03/05/25 08:30 Completed Lab/Rad Data: Laboratory Results 03/05/25 Range/Units 08:30 Urine Color Yellow (Yellow) Urine Appearance Cloudy A (Clear) Urine pH 5.5 (4.6-8.0) Ur Specific [place] 1.015 (1.005-1.030) Urine Protein 30 (Negative) Urine Glucose (UA) Negative (Negative) mg/dL Urine Ketones Trace A (Negative) Urine Blood Moderate A (Negative) Urine Nitrite Positive A (Negative) Urine Bilirubin Negative (Negative) Urine Urobilinogen 1.0 A (0.2) mg/dL Ur Leukocyte Esterase Moderate A (Negative) U Hyaline Cast (Auto) 3-5 A (0-2) /LPF Urine Microscopic RBC 21-50 A (0-5) /HPF Urine Microscopic WBC 21-50 A (0-5) /HPF Ur Epithelial Cells Rare (None Seen) /HPF Urine Bacteria Many A (None Seen) /HPF Urine Culture Reflexed YES (NO) - Progress Progress: improved Progress Note: 03/05/25 08:19 Given history of urinary retention we will start by placing a Lock catheter. Will send a UA for evaluation. Continue close ER monitoring. 03/05/25 08:57 UA shows possible UTI. Will send for urine culture and treat with antibiotics. Nursing staff stated that over 800 mL out after initial placement of Lock. Will continue to observe patient closely return here sooner for new or changing symptoms. Counseled pt/family regarding: lab results, diagnosis, need for follow-up - Departure Departure Disposition: Home Clinical Impression: UTI (urinary tract infection), Urinary retention Condition: Stable Critical Care Time: No Referrals: MICHEL PRINGLE NP [Primary Care Provider, UNKNOWN] - Follow up/PCP as directed Instructions: Urinary Retention (DC) Prescriptions: cefuroxime axetiL [Cefuroxime] 500 mg PO BID 7 Days #14 tablet
[2025-03-05 08:50] LABS: Glucose, Urine Negative (Negative); Protein,Urine Dip 30 (Negative); RBC 21-50 /HPF (0-5); WBC 21-50 /HPF (0-5)
[2025-03-05 09:09] VITALS: BP 126/56
[2025-03-05 09:22] VITALS: O2SAT 99
== END 2025-03-05 09:33 | disposition home or self-care (01) ==
LOC: ED 07:59
DX: N39.0 Urinary tract infection, site not specified (principal); R33.9 Retention of urine, unspecified; I10 Essential (primary) hypertension; Z79.01 Long term (current) use of anticoagulants; Z79.891 Long term (current) use of opiate analgesic; Z79.899 Other long term (current) drug therapy

== ENCOUNTER 2025-03-16 18:49 | Emergency (ER) | payer OTHER ==
[2025-03-16 18:57] VITALS: BP 116/91; PULSE 83; TEMP 98.8; O2SAT 99
--- NOTE | 2025-03-16 19:14 | ERPHSYRPT ---
- History of Present Illness Time Seen by Provider: 03/16/25 19:14 Source: patient Exam Limitations: no limitations Patient Subjective Stated Complaint: Pt had davis catheter removed at 1200 today at the [facility] and hasn't urinated since and it has now become painful Triage Nursing Assessment: Pt brought to the ER by EMS, vitals wnl, rates pain as 5/10, pulses normal, skin n/w/d, denies chest pain, denies SOB, pt has been to this ER multiple times in the past month due to urinary retention Physician History: Pt had davis catheter removed at 1200 today at the [facility] and hasn't urinated since and it has now become painful. He has hx of urinary retention. Timing/Duration: today Allergies/Adverse Reactions: pravastatin Adverse Reaction (Mild, Verified 03/16/25 18:57) muscle pain buprenorphine Adverse Reaction (Verified 03/16/25 18:57) urinary retention citalopram Adverse Reaction (Verified 03/16/25 18:57) sedated simvastatin [From Zocor] Adverse Reaction (Verified 03/16/25 18:57) muscle pain tamsulosin [From Flomax] Adverse Reaction (Verified 03/16/25 18:57) flu-like symptoms trazodone Adverse Reaction (Verified 03/16/25 18:57) nausea/ vomiting venlafaxine Adverse Reaction (Verified 03/16/25 18:57) Headache Home Medications: Levothyroxine Sodium 100 Mcg [Synthroid 100 Mcg] 100 mcg PO DAILY 11/23/21 [History] Cyanocobalamin 500 Mcg [Vitamin B-12 500 MCG] 1,000 mcg PO DAILY 12/29/24 [History] Desvenlafaxine Succinate [Pristiq] 50 mg PO DAILY 12/29/24 [History] Quetiapine Fumarate [Seroquel] 50 mg PO HS 12/29/24 [History] Apixaban [Eliquis 2.5 mg Tablet] 5 mg PO BID 02/14/25 [History] Aspirin 81 mg PO DAILY 02/14/25 [History] Tamsulosin HCl [Flomax] 0.4 mg PO DAILY 02/14/25 [History] Ezetimibe 10 mg [Zetia 10 MG] 10 mg PO DAILY 03/03/25 [History] Hydrocodone/Acetaminophen [[place] 10-325 mg] 1 tablet PO Q6H PRN 03/03/25 [History] PANTOPRAZOLE 40 mg Tablet [Protonix 40MG Tablet] 40 mg PO QAM 03/03/25 [History] Sennosides/Docusate Sodium [Docusate Sodium-Sennosides Tab] 2 tab PO BID 03/03/25 [History] Sucralfate 1 gm [Carafate 1 GM] 1 g PO ACHS 03/03/25 [History] Hx Tetanus, Diphtheria Vaccination/Date Given: No Hx Influenza Vaccination/Date Given: Yes Hx Pneumococcal Vaccination/Date Given: No Travel Risk - International Travel Have you traveled outside of the country in past 3 weeks: No - Emerging Infectious Disease Are you exhibiting symptoms associated with any current EIDs: No Symptoms: Abdominal Pain, Vomitting, Other (Please Comment) Comment: - - Past Medical History Pertinent Past Medical History: Yes Neurological History: Other ENT History: No Pertinent History Cardiac History: High Cholesterol, Hypertension Respiratory History: No Pertinent History Endocrine Medical History: Hypothyroidism Musculoskeletal History: Osteoarthritis GI Medical History: No Pertinent History, GERD History: No Pertinent History Psycho-Social History: Depression Male Reproductive Disorders: No Pertinent History Other Medical History: HAS ANEURYSM IN BRAIN WHICH CAUSES MIGRAINES - USES HYDROCODONE FOR MIGRAINES AND FOR ARTHRITIC PAIN. - Past Surgical History Past Surgical History: Yes Neuro Surgical History: No Pertinent History Cardiac: No Pertinent History Respiratory: No Pertinent History Gastrointestinal: Appendectomy, Other Genitourinary: No Pertinent History Musculoskeletal: Joint Replacement Male Surgical History: No Pertinent History Other Surgical History: Surgery for encarcerated hernia repair and small bowel enastemosis. Significant Family History: heart disease - Social History Smoking Status: Never smoker Exposure to second hand smoke: No Drug Use: none - Social Determinants of Health Will the patient participate in the screening: Yes Do you worry about a steady place to live?: No Do you have any problems with any of the following?: No known problems In the past 12 months,have you had to go without utilities?: No Transportation Issues: No Has anyone in your support network made you feel unsafe?: No Have you or anyone in your house had to go w/o enough food: No - Review of Systems All Other Systems: Reviewed and Negative - Nursing Vital Signs Nursing Vital Signs: Initial Vital Signs Temperature 98.8 F 03/16/25 18:51 Pulse Rate 83 03/16/25 18:51 Blood Pressure 116/91 03/16/25 18:51 O2 Sat by Pulse Oximetry 99 03/16/25 18:51 Pain Scale Pain Intensity 5 - Physical Exam General Appearance: no apparent distress Gastrointestinal/Abdomen Exam: tenderness (suprapubic) Male Genital Exam: bleeding (urethra), scrotal swellling (chronic), No scrotum tenderness (R), No scrotum tenderness (L) SpO2: 99 - Course Nursing assessment & vital signs reviewed: Yes Ordered Tests: Medication Summary Discontinued Medications Generic Name Dose Route Start Last Admin Trade Name Freq PRN Reason Stop Dose Admin Levofloxacin 500 mg 03/16/25 20:27 Levofloxacin 500 Mg Tablet PO 03/16/25 20:28 STAT ONE Lab/Rad Data: Laboratory Results 03/16/25 Range/Units 20:00 Urine Color Yellow (Yellow) Urine Appearance Cloudy A (Clear) Urine pH 7.0 (4.6-8.0) Ur Specific [place] 1.010 (1.005-1.030) Urine Protein 100 A (Negative) Urine Glucose (UA) Negative (Negative) mg/dL Urine Ketones Negative (Negative) Urine Blood Large A (Negative) Urine Nitrite Negative (Negative) Urine Bilirubin Negative (Negative) Urine Urobilinogen 0.2 (0.2) mg/dL Ur Leukocyte Esterase Large A (Negative) U Hyaline Cast (Auto) NONE SEEN (0-2) /LPF Urine Microscopic RBC >100 A (0-5) /HPF Urine Microscopic WBC >100 A (0-5) /HPF Ur Epithelial Cells None Seen (None Seen) /HPF Urine Bacteria Many A (None Seen) /HPF Urine Culture Reflexed ORDERED SEPARATELY (NO) - Progress Progress: improved Progress Note: Davis anchored and urine seen flowing into the catheter bag. Urine sent for UA. Patient recently completed antibiotics for UTI. We will leave the Davis indwelling and advised follow-up with primary care provider in 4 weeks to exchange Davis catheter before his follow-up appointment with urology in April. Counseled pt/family regarding: lab results, diagnosis, need for follow-up Medical Desision Making - Diagnostic Testing Diagnostic test were ordered, analyzed, and reviewed by me: Yes Radiological Interpretation: Interpreted by me - Risk of complications The pt has a mod risk of morbidity or mortality based on: Need for prescription drug management - Departure Departure Disposition: Home Clinical Impression: Urinary retention, Prostate nodule, Chronic UTI Condition: Stable Critical Care Time: No Referrals: MICHEL PRINGLE NP [Primary Care Provider, UNKNOWN] - Follow up/PCP as directed Instructions: Urinary Retention (DC) Prescriptions: levoFLOXacin [Levofloxacin] 500 mg PO DAILY 9 Days #9 tablet
[2025-03-16 20:18] LABS: Glucose, Urine Negative (Negative); Protein,Urine Dip 100 (Negative); RBC >100 /HPF (0-5); WBC >100 /HPF (0-5)
[2025-03-16] MEDS ORDERED: Levofloxacin 500 MG Tablet PO ONE (20:27)
== END 2025-03-16 20:47 | disposition home or self-care (01) ==
LOC: ED 18:49
DX: R33.9 Retention of urine, unspecified (principal); N40.2 Nodular prostate without lower urinary tract symptoms; N39.0 Urinary tract infection, site not specified; I10 Essential (primary) hypertension; Z79.01 Long term (current) use of anticoagulants; Z79.899 Other long term (current) drug therapy